=== PATIENT | female | born 1960 | race Caucasian/White ===

== ENCOUNTER 2022-03-01 13:32 | Outpatient (CLI) | payer OTHER, SELFPAY ==
--- NOTE | ~2022-03-01 | XR_ITS ---
EXAMINATION: XR chest 2V Exam Date/Time: 03/01/2022 13:55 CDT HISTORY: reoccurring cough, bronchitis x 3wks ago Comparison: 12/09/2018. RESULT: Lines, tubes, and devices: None. Lungs and pleura: Increased linear bibasilar opacities, with volume loss, greater in the right lower lung. Cardiomediastinal silhouette: Stable cardiomediastinal silhouette. Other: No acute osseous or upper abdominal finding. IMPRESSION: Atelectasis/consolidation in the right middle lobe. Bibasilar atelectasis. Reviewed, dictated and finalized at location K.
== END 2022-03-01 13:33 | disposition home or self-care (01) ==
LOC: CHSIMG 13:44
PROVIDERS: PCP Internal Medicine; Visit Provider Internal Medicine
DX: R05.9 Cough, unspecified (principal)
CPT/HCPCS: 71046

== ENCOUNTER 2022-03-08 10:06 | Outpatient (CLI) | payer OTHER, SELFPAY ==
--- NOTE | ~2022-03-08 | XR_ITS ---
XR chest 2V 03/08/2022 10:27 Indication: Acute upper respiratory infection Procedure: 2 view chest Comparison: 12/09/2018 and 60 03/01/2022 Findings: There is bibasilar airspace consolidation unchanged. Heart size normal. No significant effu clayton or pneumothorax. Impression: 1: Bibasilar consolidation which may represent atelectasis, scarring and/or pneumonia. Reviewed, dictated and finalized at location A. Impression: 1: Bibasilar consolidation which may represent atelectasis, scarring and/or pne umonia.
== END 2022-03-08 10:07 | disposition home or self-care (01) ==
LOC: CHSIMG 10:09
PROVIDERS: PCP Internal Medicine; Visit Provider Internal Medicine
DX: J06.9 Acute upper respiratory infection, unspecified (principal)
CPT/HCPCS: 71046

== ENCOUNTER 2022-03-21 10:05 | Outpatient (CLI) | payer OTHER, SELFPAY ==
--- NOTE | ~2022-03-21 | XR_ITS ---
XR chest 2V DATE: 03/21/2022 10:20 INDICATION: Persistent cough TECHNIQUE: 2 views COMPARISON: 03/08/2022 2 view chest 12/09 2018 2 view chest FINDINGS: Bibasilar infiltrate and/atelectasis persists without significant change since 03/08/2022. Normal heart size. No pulmonary vascular congestion or pleural effusion or pneumothorax. Aortic calci fication and mild tortuosity. Osteopenia. IMPRESSION: Persistent bibasilar infiltrates and/atelectasis Reviewed, dictated and finalized at location A.
== END 2022-03-21 10:06 | disposition home or self-care (01) ==
LOC: CHSIMG 10:06
PROVIDERS: PCP Internal Medicine; Visit Provider Internal Medicine
DX: Z09 Encounter for follow-up examination after completed treatment for conditions other than malignant neoplasm (principal); J18.9 Pneumonia, unspecified organism
CPT/HCPCS: 71046

== ENCOUNTER 2022-03-28 11:28 | Outpatient (CLI) | payer OTHER, SELFPAY ==
--- NOTE | ~2022-03-28 | CT_ITS ---
EXAMINATION:CT diagnostic chest wo con DATE: 03/28/2022 12:07 INDICATION: Pneumonia. Cough. TECHNIQUE: Computed tomography (CT) of the chest was performed without intravenous contrast. Automate d exposure control and iterative reconstruction technique were employed. The dose-length product (DLP ) was 298.82 mGy-cm. COMPARISON: Chest 2 views 03/21/2022, 12/09/2018, 03/01/2022 FINDINGS: The lung volumes are small. There is widespread peripheral septal thickening in the lungs a ssociated with groundglass opacities and small airspace opacities. There is mild bronchiectasis in th e inferior lungs. No honeycombing. The heart size is normal. No pericardial effusion. There is mild m ediastinal lymphadenopathy, likely reactive. There is mild thoracic spondylosis. IMPRESSION: 1. Diffuse lung disease, stable from 03/01/22 and worsened from 12/09/18, likely chronic interstitial darshana ng disease in a pattern of nonspecific interstitial pneumonia (NSIP). 2. Mild mediastinal lymphadenopathy, likely reactive. Reviewed, dictated and finalized at location A. IMPRESSION: 1. Diffuse lung disease, stable from 03/01/22 and worsened from 12/09/18, likely c hronic interstitial lung disease in a pattern of nonspecific interstitial pneum onia (NSIP). 2. Mild mediastinal lymphadenopathy, likely reactive.
== END 2022-03-28 11:29 | disposition home or self-care (01) ==
LOC: CHSIMG 11:33
PROVIDERS: PCP Internal Medicine; Visit Provider Internal Medicine
DX: J18.9 Pneumonia, unspecified organism (principal)
CPT/HCPCS: 71250

== ENCOUNTER 2022-04-17 10:18 | Outpatient (CLI) | payer OTHER, SELFPAY | END 2022-04-17 10:19 | disposition home or self-care (01) | LOC: CHSCARD 10:19 | PROVIDERS: PCP Internal Medicine; Visit Provider Internal Medicine | DX: R05.3 Chronic cough (principal) | CPT/HCPCS: 94060; 94726; 94729 ==

== ENCOUNTER 2022-05-16 14:44 | Outpatient (CLI) | payer OTHER, SELFPAY ==
[2022-05-16 15:10] LABS: Basophils Absolute Auto 0.08 K/mm3 (0.00-0.10); Basophils Percent Auto 1.2 % (0.0-1.0); Eosinophils Absolute Auto 0.31 K/mm3 (0.02-0.50); Eosinophils Percent Auto 4.7 % (1.0-6.0); Hematocrit 39.5 % (35.0-49.0); Hemoglobin 12.6 g/dL (12.0-15.0); Immature Granulocyte Absolute 0.01 K/mm3 (0.00-0.00); Immature Granulocyte Percent A 0.2 % (0.0-0.0); Lymphocytes Absolute Auto 2.27 K/mm3 (1.10-4.50); Lymphocytes Percent Auto 34.1 % (18.0-42.0); Mean Corpuscular HGB Conc 31.9 g/dL (32.0-36.0); Mean Corpuscular Hemoglobin 31.6 pg (27.0-31.0); Mean Platelet Volume 11.8 fl (9.2-11.8); Monocytes Absolute Auto 0.55 K/mm3 (0.10-0.90); Monocytes Percent Auto 8.3 % (2.0-11.0); Neutrophils Absolute Auto 3.4 K/mm3 (1.7-7.2); Neutrophils Percent Auto 51.5 % (50.0-70.0); Platelet Count Result 241 K/mm3 (150-420); Red Blood Count 3.99 M/mm3 (4.20-5.40); Red Cell Distribution Width 13.7 % (11.6-14.4); White Blood Count 6.7 K/mm3 (4.8-10.8)
[2022-05-16 15:19] LABS: Add Urine Microscopic? YES; Appearance Urine Clear (Clear); Bilirubin Urine Negative (Negative); Blood Urine Negative (Negative); Color Urine Yellow (Yellow); Glucose Urine UA Negative (Negative); Ketones Urine Trace (Negative); Leukocyte Esterase Ur Negative LEU/UL (Negative); Nitrate Urine Negative (Negative); Protein Urine Negative (Negative); Specific Grav Ur 1.025 (1.010-1.020); Urobilinogen Urine 0.2 mg/dL (0.2-1.0)
[2022-05-16 15:26] LABS: Alanine Aminotransferase 34 U/L (14-59); Albumin Level 3.7 g/dL (3.4-5.0); Alkaline Phosphatase 66 U/L (46-116); Anion Gap 10 mmol/L (8-16); Aspartate Amino Transferase 25 U/L (15-37); Bilirubin,Total 0.4 mg/dL (0.00-1.00); Blood Urea Nitrogen 15 mg/dL (7-18); Calcium 8.8 mg/dL (8.5-10.1); Carbon Dioxide 26 mmol/L (21-32); Chloride 107 mmol/L (98-108); Cholesterol 205 mg/dL (0-200); Creatine Kinase 94 U/L (26-192); Estimated Glomerular Filt Rate 56; Glucose 100 mg/dL (70-99); HDL Direct 61 mg/dL (40-60); LDL Cholesterol Calculated 106 mg/dL (<130); Osmolality Calculated 296 mOsm/kg (285-295); Potassium 4.3 mmol/L (3.5-5.1); Sodium 143 mmol/L (136-145); Total Protein 6.7 g/dL (6.4-8.2); Triglycerides 191 mg/dL (0-150)
[2022-05-16 15:37] LABS: Bacteria Urine Trace /hpf; RBC Urine None seen /hpf (0-2); Squamous Epithelial Cell Urine Few /hpf (Few); WBC Urine None seen /hpf (0-3)
== END 2022-05-16 14:45 | disposition home or self-care (01) ==
LOC: CHSLAB 14:46
PROVIDERS: PCP Internal Medicine; Visit Provider Internal Medicine
DX: Z00.00 Encounter for general adult medical examination without abnormal findings (principal)
CPT/HCPCS: 36415; 80053; 80061; 81001; 82550; 85025

== ENCOUNTER 2022-08-28 15:26 | Outpatient (CLI) | payer OTHER, SELFPAY ==
--- NOTE | ~2022-08-28 | XR_ITS ---
EXAMINATION: XR chest 2V Exam Date/Time: 08/28/2022 16:00 ETHOLOGIST HISTORY: chronic cough X2 DAYS Comparison: 03/21/2022, CT chest 03/28/2022. RESULT: Lines, tubes, and devices: None. Lungs and pleura: Increasing subsegmental consolidation in the right lung base overlying a backgroun d of moderate chronic interstitial change. Cardiomediastinal silhouette: Stable. Other: No acute osseous or upper abdominal finding. IMPRESSION: Atelectasis/consolidation in the right lung base. Chronic interstitial lung disease. Reviewed, dictated and finalized at location K. LOGIST IMPRESSION: Atelectasis/consolidation in the right lung base. Chronic interstitial lung dis ease.
[2022-08-28 15:48] LABS: Basophils Absolute Auto 0.06 K/mm3 (0.00-0.10); Basophils Percent Auto 0.7 % (0.0-1.0); Eosinophils Absolute Auto 0.33 K/mm3 (0.02-0.50); Eosinophils Percent Auto 3.9 % (1.0-6.0); Hematocrit 40.1 % (35.0-49.0); Hemoglobin 13.3 g/dL (12.0-15.0); Immature Granulocyte Absolute 0.02 K/mm3 (0.00-0.00); Immature Granulocyte Percent A 0.2 % (0.0-0.0); Lymphocytes Percent Auto 10.7 % (18.0-42.0); Mean Corpuscular HGB Conc 33.2 g/dL (32.0-36.0); Mean Corpuscular Volume 96.4 fL (78.0-102.0); Monocytes Absolute Auto 0.64 K/mm3 (0.10-0.90); Monocytes Percent Auto 7.6 % (2.0-11.0); Neutrophils Absolute Auto 6.5 K/mm3 (1.7-7.2); Neutrophils Percent Auto 76.9 % (50.0-70.0); Platelet Count Result 217 K/mm3 (150-420); Red Blood Count 4.16 M/mm3 (4.20-5.40); Red Cell Distribution Width 13.5 % (11.6-14.4); White Blood Count 8.4 K/mm3 (4.8-10.8)
[2022-08-28 16:37] LABS: CRP 0.6 mg/dL (0.0-0.9)
[2022-08-28 16:52] LABS: Erythrocyte Sedimentation Rate 12 mm/hr (0-20)
== END 2022-08-28 15:27 | disposition home or self-care (01) ==
LOC: CHSLAB 15:28
PROVIDERS: PCP Internal Medicine; Visit Provider Internal Medicine
DX: R05.3 Chronic cough (principal)
CPT/HCPCS: 36415; 71046; 85025; 85652; 86140

== ENCOUNTER 2022-09-01 06:36 | Emergency (ER) | payer OTHER, SELFPAY ==
--- NOTE | ~2022-09-01 | XR_ITS ---
XR ribs RT 2V w CXR 2V DATE: 09/01/2022 07:25 INDICATION: Right lower rib pain TECHNIQUE: PA and lateral chest. 3 views of the right ribs. COMPARISON: None FINDINGS: There are prominent bibasilar infiltrates and/or atelectasis, greater on the right. Minimal patchy infiltrate is noted throughout the remainder of the right lung. Normal heart size. No pleural effusion or pulmonary vascular congestion or pneumothorax. Diffuse osteopenia. Mild degenerative change of the thoracic and lumbar spine. No right rib fracture or bone destruction is detected. IMPRESSION: Prominent bibasilar infiltrate and/or atelectasis, greater on the right; mild diffuse rig ht lung infiltrate Reviewed, dictated and finalized at location A. ARCH ANTHROPOLOGIST IMPRESSION: Prominent bibasilar infiltrate and/or atelectasis, greater on the r ight; mild diffuse right lung infiltrate
[2022-09-01 06:45] VITALS: BP 125/77; PULSE 88; RESP 20; TEMP 36.4; O2SAT 95
--- NOTE | 2022-09-01 06:58 | ED.GENADULT ---
HPI - General Adult General Chief complaint: Upper Respiratory Infection Stated complaint: pneumonia/pain bottom R Lung/ Time Seen by Provider: 09/01/22 07:14 History of Present Illness HPI narrative: Ruma is a 61F with a PMH of rheumatoid arthritis, osteoarthritis, and psoriatic arthritis as well as headaches and HTN that presented to the ED with worsening symptoms after being diagnosed with pneumonia a few days ago. She was started on levaquin and benzonatate but she continues to get worse. She is having worsening pain in her right lower ribs, brain fog, and aches in her tendons and joints. To make things worse she is very worked up and upset because her mother yesterday. She denies any pain in her anterior chest. Related Data Home Medications Medication Instructions Recorded Confirmed atorvastatin 10 mg tablet 10 mg PO DAILY 09/01/22 09/01/22 benzonatate 100 mg capsule 200 mg PO PRN PRN Cough 09/01/22 09/01/22 duloxetine 60 mg capsule,delayed 60 mg PO DAILY 09/01/22 09/01/22 release fluticasone propionate 100 1 inh inhalation BID 09/01/22 09/01/22 mcg/actuation blister powder for inhalation (Flovent Diskus) levofloxacin 500 mg tablet 500 mg PO BID 09/01/22 09/01/22 lisinopril 10 mg tablet 10 mg PO DAILY 09/01/22 09/01/22 propranolol 80 mg capsule,24 80 mg PO DAILY 09/01/22 09/01/22 hr,extended release sumatriptan succinate 4 mg/0.5 mL 4 mg subcut PRN PRN Headache 09/01/22 09/01/22 subcutaneous cartridge (refill) topiramate 100 mg tablet 100 mg PO DAILY 09/01/22 09/01/22 Allergies Allergy/AdvReac Type Severity Reaction Status Date / Time No Known Allergies Allergy Verified 09/01/22 06:54 Review of Systems Review of Systems: All systems reviewed & are unremarkable except as noted in HPI and below Exam Const: General: healthy appearing and no acute distress Nutritional Appearance: well nourished Orientation/consciousness: patient oriented x3 HENMT: Head: normal to inspection Ears: external ears normal Eyes: Conjunctivae: conjunctivae normal Neck: Neck: normal visual inspection Chest: Chest palpation & inspection: normal inspection of the chest Resp: Effort & Inspection: labored Auscultation: crackles on the right at the base Other: Cough present throughout most of exam Cardio: Rate: regular rate Rhythm: regular rhythm GI: Inspection: non-distended GI Palp: Yes Soft to palpation, No Tenderness to palpation present (GI) and No Guarding due to palpation present (GI) Skin: General skin exam: normal color Neuro: General: patient oriented x3 and moves all extremities Cranial nerves: Yes Nystagmus not present Extrem: General: normal to inspection Psych: Mental Status: mental status grossly normal Course Course Emergency Course: Ordered radiographs. Given alprazolam. Care transferred to Dr. Cui at 0700. Vital Signs Vital signs: Vital Signs Temperature 97.5 F L 09/01/22 06:45 Pulse Rate 88 09/01/22 06:45 Respiratory Rate 20 09/01/22 06:45 Blood Pressure 125/77 09/01/22 06:45 Pulse Oximetry 95 09/01/22 06:45 Oxygen Delivery Room Air 09/01/22 06:45 Temperature 99.0 F 09/01/22 07:57 Pulse Rate 87 09/01/22 07:57 Respiratory Rate 20 09/01/22 07:57 Blood Pressure 116/73 09/01/22 07:57 Pulse Oximetry 97 09/01/22 07:57 Oxygen Delivery Room Air 09/01/22 07:57 Medical Decision Making Vital Signs Vital Signs: Vital Signs Temperature 97.5 F L 09/01/22 06:45 Pulse Rate 88 09/01/22 06:45 Respiratory Rate 20 09/01/22 06:45 Blood Pressure 125/77 09/01/22 06:45 Pulse Oximetry 95 09/01/22 06:45 Oxygen Delivery Room Air 09/01/22 06:45 Temperature 99.0 F 09/01/22 07:57 Pulse Rate 87 09/01/22 07:57 Respiratory Rate 20 09/01/22 07:57 Blood Pressure 116/73 09/01/22 07:57 Pulse Oximetry 97 09/01/22 07:57 Oxygen Delivery Room Air 09/01/22 07:57 Discharge Plan Discharge Clini
--- NOTE | 2022-09-01 07:08 | PC.NURSE ---
Report given to [place] DALLAS.
--- NOTE | 2022-09-01 07:15 | ED.GENADULT ---
HPI - General Adult General Chief complaint: Upper Respiratory Infection Stated complaint: pneumonia/pain bottom R Lung/ Time Seen by Provider: 09/01/22 07:14 History of Present Illness HPI narrative: patient is a 61-year-old white female diagnosed with pneumonia 4 days ago placed on Levaquin which she thinks is making her symptoms worse. She complains of persistent cough lightheadedness muscle aches joint aches and brain fog. Patient was seen by Dr. Kenroy Crain who ordered a chest x-ray repeat with the rib series Ativan. Patient states her mother yesterday of Alzheimer's disease. doctor's note was reviewed and discussed. Related Data Home Medications Medication Instructions Recorded Confirmed atorvastatin 10 mg tablet 10 mg PO DAILY 09/01/22 09/01/22 benzonatate 100 mg capsule 200 mg PO PRN PRN Cough 09/01/22 09/01/22 duloxetine 60 mg capsule,delayed 60 mg PO DAILY 09/01/22 09/01/22 release fluticasone propionate 100 1 inh inhalation BID 09/01/22 09/01/22 mcg/actuation blister powder for inhalation (Flovent Diskus) levofloxacin 500 mg tablet 500 mg PO BID 09/01/22 09/01/22 lisinopril 10 mg tablet 10 mg PO DAILY 09/01/22 09/01/22 propranolol 80 mg capsule,24 80 mg PO DAILY 09/01/22 09/01/22 hr,extended release sumatriptan succinate 4 mg/0.5 mL 4 mg subcut PRN PRN Headache 09/01/22 09/01/22 subcutaneous cartridge (refill) topiramate 100 mg tablet 100 mg PO DAILY 09/01/22 09/01/22 Allergies Allergy/AdvReac Type Severity Reaction Status Date / Time No Known Allergies Allergy Verified 09/01/22 06:54 Exam Narrative: Patient appears in no apparent distress. Lungs show crepitation at the bases she had 1 small wheeze which disappeared At the right base. Heart was regular rate rhythm without murmurs gallops or rubs. Vital signs are normal. Course Course Emergency Course: Check stat x-ray with right rib series was negative for fracture. Her x-ray looks a little better that will was on 08/28/2022. Discharge instructions were discussed all questions were asked and answered Vital Signs Vital signs: Vital Signs Temperature 36.4 C L 09/01/22 06:45 Pulse Rate 88 09/01/22 06:45 Respiratory Rate 20 09/01/22 06:45 Blood Pressure 125/77 09/01/22 06:45 Pulse Oximetry 95 09/01/22 06:45 Oxygen Delivery Room Air 09/01/22 06:45 Temperature 36.4 C L 09/01/22 06:45 Pulse Rate 88 09/01/22 06:45 Respiratory Rate 20 09/01/22 06:45 Blood Pressure 125/77 09/01/22 06:45 Pulse Oximetry 95 09/01/22 06:45 Oxygen Delivery Room Air 09/01/22 06:45 Medical Decision Making Vital Signs Vital Signs: Vital Signs Temperature 36.4 C L 09/01/22 06:45 Pulse Rate 88 09/01/22 06:45 Respiratory Rate 20 09/01/22 06:45 Blood Pressure 125/77 09/01/22 06:45 Pulse Oximetry 95 09/01/22 06:45 Oxygen Delivery Room Air 09/01/22 06:45 Temperature 36.4 C L 09/01/22 06:45 Pulse Rate 88 09/01/22 06:45 Respiratory Rate 20 09/01/22 06:45 Blood Pressure 125/77 09/01/22 06:45 Pulse Oximetry 95 09/01/22 06:45 Oxygen Delivery Room Air 09/01/22 06:45 Discharge Plan Discharge Clinical Impression: Pneumonia Patient Disposition: Home, Self-Care Condition: Stable Instructions: Antibiotic Form, Bacterial Pneumonia (ED) Additional Instructions: Tylenol 1000 mg 4 times a day and or ibuprofen 200 mg tablets: 2 tabs 3 times a day as needed for pain. Low heating pad and or ice packs for 20 minutes at a time as needed for pain. Return if you get worse or develops any new symptoms. Follow-up with private medical doctor. Prescriptions: New amoxicillin-pot clavulanate [Augmentin] 500-125 mg tablet 1 tablet PO TID 10 Days Qty: 30 0RF azithromycin [Zithromax Z-Efrain] 250 mg tablet See Rx Instructions .ROUTE .COMPLEX Qty: 6 0RF Rx Instructions: For 250 mg dose pack: take 500 mg today (day 1), then 250 mg for 4 days (days 2-5)
[2022-09-01] MEDS: ALPRAZolam (*CRX) 0.5 MG TABLET PO (07:43)
[2022-09-01 07:57] VITALS: BP 116/73; PULSE 87; RESP 20; TEMP 37.2; O2SAT 97
== END 2022-09-01 08:02 | disposition home or self-care (01) ==
LOC: CHSED 07:45
PROVIDERS: Emergency Provider Emergency Medicine; PCP Internal Medicine
DX: J18.9 Pneumonia, unspecified organism (principal)
CPT/HCPCS: 71046; 71100; 99283; A9270

== ENCOUNTER 2023-03-30 09:21 | Outpatient (CLI) | payer OTHER, SELFPAY ==
[2023-03-30 09:40] LABS: Basophils Absolute Auto 0.06 K/mm3 (0.00-0.10); Basophils Percent Auto 1.1 % (0.0-1.0); Eosinophils Absolute Auto 0.31 K/mm3 (0.02-0.50); Eosinophils Percent Auto 5.6 % (1.0-6.0); Hematocrit 38.7 % (35.0-49.0); Hemoglobin 12.8 g/dL (12.0-15.0); Immature Granulocyte Absolute 0.02 K/mm3 (0.00-0.00); Immature Granulocyte Percent A 0.4 % (0.0-0.0); Lymphocytes Absolute Auto 2.29 K/mm3 (1.10-4.50); Lymphocytes Percent Auto 41.5 % (18.0-42.0); Mean Corpuscular HGB Conc 33.1 g/dL (32.0-36.0); Mean Corpuscular Hemoglobin 32.5 pg (27.0-31.0); Mean Corpuscular Volume 98.2 fL (78.0-102.0); Mean Platelet Volume 11.7 fl (9.2-11.8); Monocytes Absolute Auto 0.45 K/mm3 (0.10-0.90); Monocytes Percent Auto 8.2 % (2.0-11.0); Neutrophils Absolute Auto 2.4 K/mm3 (1.7-7.2); Neutrophils Percent Auto 43.2 % (50.0-70.0); Platelet Count Result 223 K/mm3 (150-420); Red Blood Count 3.94 M/mm3 (4.20-5.40); Red Cell Distribution Width 13.5 % (11.6-14.4); White Blood Count 5.5 K/mm3 (4.8-10.8)
[2023-03-30 09:58] LABS: Hemoglobin A1C 5.6 % (<5.7)
[2023-03-30 10:10] LABS: Appearance Urine Clear (Clear); Bilirubin Urine Negative (Negative); Blood Urine Trace-Intact (Negative); Color Urine Light Yellow (Yellow); Glucose Urine UA Negative (Negative); Ketones Urine Negative (Negative); Leukocyte Esterase Ur 2+ (Negative); Nitrate Urine Negative (Negative); Protein Urine Negative (Negative); Specific Grav Ur <= 1.005 (1.010-1.020); Urobilinogen Urine 0.2 mg/dL (0.2-1.0); pH Urine 6.5 (5.0-8.0)
[2023-03-30 10:15] LABS: Add Urine Microscopic? YES; Bacteria Urine Trace /hpf; RBC Urine 0-2 /hpf (0-2); Squamous Epithelial Cell Urine Few /hpf (Few)
[2023-03-30 10:46] LABS: Alanine Aminotransferase 21 U/L (14-59); Albumin Level 3.6 g/dL (3.4-5.0); Alkaline Phosphatase 65 U/L (46-116); Anion Gap 9 mmol/L (8-16); Aspartate Amino Transferase 17 U/L (15-37); Bilirubin,Total 0.4 mg/dL (0.00-1.00); Blood Urea Nitrogen 16 mg/dL (7-18); Calcium 8.6 mg/dL (8.5-10.1); Carbon Dioxide 28 mmol/L (21-32); Chloride 107 mmol/L (98-108); Cholesterol 294 mg/dL (0-200); Estimated Glomerular Filt Rate > 60; Glucose 107 mg/dL (70-99); HDL Direct 51 mg/dL (40-60); LDL Cholesterol Calculated 210 mg/dL (<130); Osmolality Calculated 299 mOsm/kg (285-295); Potassium 4.3 mmol/L (3.5-5.1); Sodium 144 mmol/L (136-145); Total Protein 6.8 g/dL (6.4-8.2); Triglycerides 163 mg/dL (0-150)
== END 2023-03-30 09:22 | disposition home or self-care (01) ==
PROVIDERS: PCP Internal Medicine; Visit Provider Internal Medicine
DX: I10 Essential (primary) hypertension (principal); R73.01 Impaired fasting glucose; E78.2 Mixed hyperlipidemia; M05.70 Rheumatoid arthritis with rheumatoid factor of unspecified site without organ or systems involvement
CPT/HCPCS: 36415; 80053; 80061; 81001; 83036; 85025

== ENCOUNTER 2023-07-12 12:53 | Outpatient (CLI) | payer BC, SELFPAY ==
--- NOTE | ~2023-07-12 | CT_ITS ---
EXAMINATION:CT diagnostic chest wo con DATE: 07/12/2023 13:23 INDICATION: Cough. Interstitial lung disease. TECHNIQUE: Computed tomography (CT) of the chest was performed without intravenous contrast. Automate d exposure control and iterative reconstruction technique were employed. The dose-length product (DLP ) was 251.82 mGy-cm. COMPARISON: Chest CT 03/28/2022 FINDINGS: The lung volumes are small. There are widespread peripheral airspace and groundglass opacit ies and septal thickening with a lower lung predominance. No honeycombing. No pleural effusion. The h eart size is normal. No pericardial effusion. There is mild mediastinal lymphadenopathy, likely react lisa. There are 4 mm and 5 mm stones in right kidney. There is mild thoracic spondylosis. IMPRESSION: 1. Diffuse lung disease, stable from 03/28/2022, consistent with chronic interstitial lung disease in a pattern of nonspecific interstitial pneumonia (NSIP). 2. Stable mild mediastinal lymphadenopathy, likely reactive. Reviewed, dictated and finalized at location E. IMPRESSION: 1. Diffuse lung disease, stable from 03/28/2022, consistent with chronic interst itial lung disease in a pattern of nonspecific interstitial pneumonia (NSIP). 2. Stable mild mediastinal lymphadenopathy, likely reactive.
== END 2023-07-12 12:54 | disposition home or self-care (01) ==
LOC: CHSIMG 12:55
PROVIDERS: PCP Internal Medicine
DX: J84.9 Interstitial pulmonary disease, unspecified (principal); R59.0 Localized enlarged lymph nodes
CPT/HCPCS: 71250

== ENCOUNTER 2023-07-30 14:50 | Outpatient (CLI) | payer BC, SELFPAY ==
--- NOTE | 2023-07-30 14:54 | ECHO_ITS ---
Patient Info Name: Ruma Montaño Age: 62 years : 1960 Gender: Female Ht: 69 in Wt: 217 lbs BSA: 2.22 m2 HR: 73 bpm BP: 159 / 102 mmHg Heart Rhythm: Sinus Rhythm Technical Quality: Good Exam Date: 07/30/2023 2:53 PM Exam Location: [facility] Patient Status: Outpatient Admit Date: 07/30/2023 Staff Ordering Physician: Jesus Vaughn M.D., MD Tuber Machine Cutter: Forrest Merchant RDCS Attending Provider: Jesus Vaughn M.D., MD Referring Physician: Roderick LIZ; Exam Type: CA echo doppler color flow Study Info Indications - sob Complete two-dimensional, color flow and Doppler transthoracic echocardiogram is performed. Summary 1. Complete two-dimensional, color flow and Doppler transthoracic echocardiogram is performed. 2. Left ventricular chamber dimension is normal. 3. Left ventricular systolic function is normal, estimated at 60-65%. 4. The left ventricular diastolic function is grade I diastolic dysfunction. 5. No pulmonary hypertension, estimated pulmonary arterial systolic pressure is 23 mmHg. Left Ventricle Tissue doppler E/e' is not performed. Left ventricular chamber dimension is normal. Left ventricular systolic function is normal, estimated at 60-65%. The left ventricular diastolic function is grade I diastolic dysfunction. Right Ventricle Right ventricular chamber dimension is normal. Right ventricular systolic function is normal. Left Atria Left atrial chamber dimension is normal. Right Atria Right atrial chamber dimension is normal. Aortic Valve The aortic valve is trileaflet. There is no aortic valve stenosis. There is no aortic valve regurgitation. Pulmonic Valve There is no pulmonic regurgitation. Mitral Valve There is no mitral valve stenosis. There is no mitral valve regurgitation. Tricuspid Valve There is no tricuspid valve regurgitation. No pulmonary hypertension, estimated pulmonary arterial systolic pressure is 23 mmHg. Pericardium/Pleural There is no pericardial effusion. Inferior Vena Cava Normal inferior vena cava with >50% collapse upon inspiration consistent with normal right atrial pressure, 5 mmHg. Aorta The aortic root size at the sinus of Valsalva is normal. Left Ventricular Outflow Tract Name Value Normal LVOT 2D LVOT Diameter 1.8 cm LVOT Doppler LVOT Peak Velocity 209 cm/s LVOT Peak Gradient 18 mmHg LVOT Mean Gradient 6 mmHg LVOT VTI 40 cm LVOT VTI/AV VTI Ratio 1.1 LVOT Stroke Volume 106 ml Pulmonic Valve Name Value Normal RVOT Doppler RVOT Peak Gradient 2 mmHg PV Doppler PV Peak Velocity 84 cm/s PV Peak Gradient 3 mmHg Mitral Valve
== END 2023-07-30 14:51 | disposition home or self-care (01) ==
LOC: CHSIMG 14:51
PROVIDERS: PCP Internal Medicine
DX: R06.02 Shortness of breath (principal)
CPT/HCPCS: 93306

== ENCOUNTER 2023-11-14 15:58 | Outpatient (CLI) | payer BC, SELFPAY ==
--- NOTE | ~2023-11-14 | XR_ITS ---
EXAMINATION: XR chest 2V DATE: 11/14/2023 16:22 INDICATION: Cough. TECHNIQUE: Frontal and lateral views of the chest were obtained. COMPARISON: Chest 2 views 09/01/2022, 03/21/2022, chest CT 07/12/2023 FINDINGS: The lung volumes are small. There are interstitial opacities and patchy airspace opacities in all lung zones bilaterally. No pleural effusion or pneumothorax. The heart size is normal. IMPRESSION: 1. Diffuse lung disease, mildly worsened from 09/01/2022, consistent with chronic interstitial lung d isease with superimposed findings of acute exacerbation versus pneumonia versus mild pulmonary edema. Reviewed, dictated and finalized at location E. ER ANALYST IMPRESSION: 1. Diffuse lung disease, mildly worsened from 09/01/2022, consistent with chron ic interstitial lung disease with superimposed findings of acute exacerbation v ersus pneumonia versus mild pulmonary edema.
[2023-11-14 16:20] LABS: Basophils Percent Auto 0.7 % (0.0-1.0); Eosinophils Absolute Auto 0.73 K/mm3 (0.02-0.50); Eosinophils Percent Auto 5.2 % (1.0-6.0); Hematocrit 39.2 % (35.0-49.0); Hemoglobin 12.6 g/dL (12.0-15.0); Immature Granulocyte Absolute 0.04 K/mm3 (0.00-0.00); Immature Granulocyte Percent A 0.3 % (0.0-0.0); Lymphocytes Absolute Auto 1.96 K/mm3 (1.10-4.50); Mean Corpuscular HGB Conc 32.1 g/dL (32.0-36.0); Mean Corpuscular Hemoglobin 30.4 pg (27.0-31.0); Mean Corpuscular Volume 94.5 fL (78.0-102.0); Mean Platelet Volume 11.7 fl (9.2-11.8); Monocytes Absolute Auto 1.22 K/mm3 (0.10-0.90); Monocytes Percent Auto 8.7 % (2.0-11.0); Neutrophils Absolute Auto 9.9 K/mm3 (1.7-7.2); Neutrophils Percent Auto 71.1 % (50.0-70.0); Platelet Count Result 245 K/mm3 (150-420); Red Blood Count 4.15 M/mm3 (4.20-5.40)
[2023-11-14 16:29] LABS: Alanine Aminotransferase 24 U/L (14-59); Albumin Level 3.2 g/dL (3.4-5.0); Alkaline Phosphatase 64 U/L (46-116); Anion Gap 9 mmol/L (8-16); Aspartate Amino Transferase 33 U/L (15-37); Bilirubin,Total 0.8 mg/dL (0.00-1.00); Blood Urea Nitrogen 11 mg/dL (7-18); Calcium 8.5 mg/dL (8.5-10.1); Carbon Dioxide 29 mmol/L (21-32); Chloride 102 mmol/L (98-108); Estimated Glomerular Filt Rate 57; Glucose 107 mg/dL (70-99); Osmolality Calculated 289 mOsm/kg (285-295); Potassium 3.7 mmol/L (3.5-5.1); Sodium 140 mmol/L (136-145)
[2023-11-14 16:51] LABS: RSV RNA, RT-PCR Negative (Negative)
[2023-11-14 17:03] LABS: Influenza A QL RT-PCR Negative (Negative); Influenza B QL RT-PCR Negative (Negative); SARS-CoV-2 RNA PCR Positive (Negative)
== END 2023-11-14 15:59 | disposition home or self-care (01) ==
LOC: CHSLAB 16:00
PROVIDERS: PCP Internal Medicine; Visit Provider Internal Medicine
DX: R05.9 Cough, unspecified (principal); R50.9 Fever, unspecified; J98.4 Other disorders of lung; Z20.822 Contact with and (suspected) exposure to COVID-19
CPT/HCPCS: 36415; 71046; 80053; 85025; 87637

== ENCOUNTER 2023-12-27 09:31 | Outpatient (CLI) | payer BC, SELFPAY ==
[2023-12-27 10:24] LABS: Basophils Absolute Auto 0.11 K/mm3 (0.00-0.10); Eosinophils Absolute Auto 0.72 K/mm3 (0.02-0.50); Eosinophils Percent Auto 6.2 % (1.0-6.0); Hematocrit 40.9 % (35.0-49.0); Hemoglobin 13.1 g/dL (12.0-15.0); Immature Granulocyte Absolute 0.05 K/mm3 (0.00-0.00); Immature Granulocyte Percent A 0.4 % (0.0-0.0); Lymphocytes Absolute Auto 2.83 K/mm3 (1.10-4.50); Lymphocytes Percent Auto 24.5 % (18.0-42.0); Mean Corpuscular Hemoglobin 30.7 pg (27.0-31.0); Mean Corpuscular Volume 95.8 fL (78.0-102.0); Mean Platelet Volume 10.5 fl (9.2-11.8); Monocytes Percent Auto 7.8 % (2.0-11.0); Neutrophils Absolute Auto 6.96 K/mm3 (1.70-7.20); Neutrophils Percent Auto 60.1 % (50.0-70.0); Platelet Count Result 249 K/mm3 (150-420); Red Blood Count 4.27 M/mm3 (4.20-5.40); Red Cell Distribution Width 15.4 % (11.6-14.4); White Blood Count 11.6 K/mm3 (4.8-10.8)
[2023-12-27 10:39] LABS: Appearance Urine Clear (Clear); Bilirubin Urine Negative (Negative); Blood Urine Negative (Negative); Color Urine Yellow (Yellow); Glucose Urine UA Negative (Negative); Ketones Urine Negative (Negative); Leukocyte Esterase Ur Negative LEU/UL (Negative); Nitrate Urine Negative (Negative); Protein Urine Negative (Negative); Urobilinogen Urine 0.2 mg/dL (0.2-1.0)
[2023-12-27 10:44] LABS: Hemoglobin A1C 5.8 % (<5.7)
[2023-12-27 10:54] LABS: Add Urine Microscopic? NO
[2023-12-27 11:27] LABS: Alanine Aminotransferase 40 U/L (14-59); Albumin Level 3.3 g/dL (3.4-5.0); Alkaline Phosphatase 39 U/L (46-116); Anion Gap 8 mmol/L (8-16); Aspartate Amino Transferase 22 U/L (15-37); Bilirubin,Total 0.7 mg/dL (0.00-1.00); Blood Urea Nitrogen 20 mg/dL (7-18); Calcium 8.7 mg/dL (8.5-10.1); Carbon Dioxide 29 mmol/L (21-32); Chloride 107 mmol/L (98-108); Cholesterol 207 mg/dL (0-200); Creatine Kinase 226 U/L (26-192); Estimated Glomerular Filt Rate > 60; Glucose 76 mg/dL (70-99); HDL Direct 67 mg/dL (40-60); LDL Cholesterol Calculated 116 mg/dL (<130); Osmolality Calculated 299 mOsm/kg (285-295); Potassium 3.9 mmol/L (3.5-5.1); Sodium 144 mmol/L (136-145); Thyroid Stimulating Hormone 2.32 uIU/mL (0.36-3.74); Total Protein 5.9 g/dL (6.4-8.2); Triglycerides 120 mg/dL (0-150)
== END 2023-12-27 09:32 | disposition home or self-care (01) ==
LOC: CHSLAB 09:34
PROVIDERS: PCP Internal Medicine; Visit Provider Internal Medicine
DX: Z00.00 Encounter for general adult medical examination without abnormal findings (principal); K73.0 Chronic persistent hepatitis, not elsewhere classified
CPT/HCPCS: 36415; 80053; 80061; 81003; 82550; 83036; 84443; 85025

== ENCOUNTER 2024-08-07 09:48 | Outpatient (CLI) | payer BC, SELFPAY ==
[2024-08-07 10:04] LABS: Basophils Absolute Auto 0.05 K/mm3 (0.00-0.10); Basophils Percent Auto 1.2 % (0.0-1.0); Eosinophils Absolute Auto 0.37 K/mm3 (0.02-0.50); Eosinophils Percent Auto 8.6 % (1.0-6.0); Hematocrit 36.7 % (35.0-49.0); Immature Granulocyte Absolute 0.01 K/mm3 (0.00-0.00); Immature Granulocyte Percent A 0.2 % (0.0-0.0); Lymphocytes Absolute Auto 1.65 K/mm3 (1.10-4.50); Lymphocytes Percent Auto 38.2 % (18.0-42.0); Mean Corpuscular HGB Conc 32.7 g/dL (32-36); Mean Corpuscular Hemoglobin 31.7 pg (27.0-31.0); Mean Corpuscular Volume 96.8 fL (78.0-102.0); Monocytes Percent Auto 9.3 % (2.0-11.0); Neutrophils Absolute Auto 1.84 K/mm3 (1.70-7.20); Neutrophils Percent Auto 42.5 % (50.0-70.0); Platelet Count Result 203 K/mm3 (150-420); Red Blood Count 3.79 M/mm3 (4.20-5.40); Red Cell Distribution Width 13.6 % (11.6-14.4); White Blood Count 4.3 K/mm3 (4.8-10.8)
[2024-08-07 10:06] LABS: Add Urine Microscopic? YES; Appearance Urine Clear (Clear); Bilirubin Urine Negative (Negative); Blood Urine Negative (Negative); Color Urine Light Yellow (Yellow); Glucose Urine UA Negative (Negative); Ketones Urine Negative (Negative); Leukocyte Esterase Ur 3+ (Negative); Nitrate Urine Negative (Negative); Protein Urine Negative (Negative); Urobilinogen Urine 0.2 mg/dL (0.2-1.0)
[2024-08-07 10:16] LABS: Bacteria Urine 1+ /hpf; RBC Urine None seen /hpf (0-2); Squamous Epithelial Cell Urine Few /hpf (Few)
[2024-08-07 10:28] LABS: Hemoglobin A1C 5.6 % (<5.7)
[2024-08-07 10:51] LABS: Alanine Aminotransferase 25 U/L (14-59); Albumin Level 3.3 g/dL (3.4-5.0); Alkaline Phosphatase 58 U/L (46-116); Anion Gap 7 mmol/L (4-12); Aspartate Amino Transferase 13 U/L (15-37); Bilirubin,Total 0.4 mg/dL (0.00-1.00); Blood Urea Nitrogen 17 mg/dL (7-18); Calcium 8.6 mg/dL (8.5-10.1); Carbon Dioxide 29 mmol/L (21-32); Chloride 110 mmol/L (98-108); Cholesterol 215 mg/dL (0-200); Estimated Glomerular Filt Rate 52; Glucose 105 mg/dL (70-99); HDL Direct 50 mg/dL (40-60); LDL Cholesterol Calculated 121 mg/dL (<130); Osmolality Calculated 303 mOsm/kg (285-295); Potassium 4.3 mmol/L (3.5-5.1); Sodium 146 mmol/L (136-145); Total Protein 6.1 g/dL (6.4-8.2); Triglycerides 218 mg/dL (0-150)
== END 2024-08-07 09:49 | disposition home or self-care (01) ==
PROVIDERS: PCP Internal Medicine; Visit Provider Internal Medicine
DX: R73.01 Impaired fasting glucose (principal); I10 Essential (primary) hypertension; E78.2 Mixed hyperlipidemia
CPT/HCPCS: 36415; 80053; 80061; 81001; 83036; 85025

== ENCOUNTER 2024-08-11 11:57 | Outpatient (CLI) | payer BC, SELFPAY ==
--- NOTE | ~2024-08-11 | XR_ITS ---
Clinical Indication: NSIP, shortness of breath PA and lateral views of the chest: Comparison: 11/14/2023 Findings: Stable chronic interstitial disease in the lungs is present. Probable relative sparing of t he left upper lobe. Cardiomediastinal silhouette is within normal limits. Bones and soft tissues are unremarkable. Impression: Stable chronic interstitial pulmonary disease. Reviewed, dictated and finalized at location . ARATION OPERATOR Impression: Stable chronic interstitial pulmonary disease.
== END 2024-08-11 11:58 | disposition home or self-care (01) ==
LOC: CHSLAB 11:59
PROVIDERS: PCP Internal Medicine; Visit Provider Family Medicine
DX: R05.2 Subacute cough (principal)
CPT/HCPCS: 71046

== ENCOUNTER 2024-08-16 01:11 | Emergency (ER) | payer BC, SELFPAY ==
--- NOTE | ~2024-08-16 | XR_ITS ---
EXAMINATION: XR abdomen obstructive series DATE: 08/16/2024 01:42 INDICATION: Constipation. TECHNIQUE: Upright and supine views of the abdomen on 4 radiographs were obtained. COMPARISON: Chest CT 07/12/2023 FINDINGS: There are no dilated loops of bowel. There is a moderate volume of stool in the colon. No f ree intraperitoneal gas. There are chronic airspace and interstitial opacities at the lung bases. IMPRESSION: 1. Nonobstructive bowel gas pattern. 2. Chronic interstitial lung disease. Reviewed, dictated and finalized at location A. STRAPPER
[2024-08-16 01:13] VITALS: BP 146/94; PULSE 89; RESP 18; TEMP 37.3; O2SAT 94
--- NOTE | 2024-08-16 01:26 | ED.GENADULT ---
HPI - General Adult General Chief complaint: Unspecified Stated complaint: constipation Time Seen by Provider: 08/16/24 01:25 Source: patient Mode of arrival: ambulatory Limitations: no limitations History of Present Illness HPI narrative: PATIENT DROVE HERSELF TO THE EMERGENCY ROOM COMPLAINING OF UNABLE TO URINATE FOR THE LAST 7 HOURS. PATIENT REPORT LAST BOWEL MOVEMENT 3 DAYS AGO. WAS SEEN BY HER ONCOLOGIST TODAY FOR REGULAR CHECKUP. HISTORY OF BREAST CANCER April, CURRENTLY ON RADIATION THERAPY AND CHEMOTHERAPY Related Data Home Medications Medication Instructions Recorded Confirmed atorvastatin 10 mg tablet 10 mg PO DAILY 09/01/22 09/01/22 benzonatate 100 mg capsule 200 mg PO PRN PRN Cough 09/01/22 09/01/22 duloxetine 60 mg capsule,delayed 60 mg PO DAILY 09/01/22 09/01/22 release fluticasone propionate 100 1 inh inhalation BID 09/01/22 09/01/22 mcg/actuation blister powder for inhalation (Flovent Diskus) levofloxacin 500 mg tablet 500 mg PO BID 09/01/22 09/01/22 lisinopril 10 mg tablet 10 mg PO DAILY 09/01/22 09/01/22 propranolol 80 mg capsule,24 80 mg PO DAILY 09/01/22 09/01/22 hr,extended release sumatriptan succinate 4 mg/0.5 mL 4 mg subcut PRN PRN Headache 09/01/22 09/01/22 subcutaneous cartridge (refill) topiramate 100 mg tablet 100 mg PO DAILY 09/01/22 09/01/22 Allergies Allergy/AdvReac Type Severity Reaction Status Date / Time levofloxacin AdvReac Dizziness Verified 08/16/24 02:34 Review of Systems Review of Systems: All systems reviewed & are unremarkable except as noted in HPI and below Exam Narrative: GENERAL APPEARANCE: WELL-DEVELOPED, WELL-NOURISHED SKIN: NORMAL COLOR HEAD: NORMOCEPHALIC, NONTRAUMATIC EYES: CLEAR CONJUNCTIVA ENT: OROPHARYNX NORMAL, EARS NORMAL, NOSE NORMAL NECK: SUPPLE, NONTENDER CHEST AND RESPIRATORY: AIRWAY PATENT, NO RESPIRATORY DISTRESS, NO ACCESSORY MUSCLE USE HEART: REGULAR RATE/RHYTHM ABDOMEN: SOFT, SUPRAPUBIC TENDERNESS, NO ORGANOMEGALY, QUIET BOWEL SOUNDS, RECTAL EXAM SHOWING FECAL IMPACTION VASCULAR: NORMAL PERIPHERAL PULSES, NORMAL CAPILLARY REFILL. MUSCULOSKELETAL: NORMAL RANGE OF MOTION, NONTENDER BACK NEUROLOGIC: ALERT AND ORIENTED ?3, ACCOUNTS PAYABLE PROFESSIONAL IS NORMAL TESTED, NO GROSS MOTOR DEFICIT Course Vital Signs Vital signs: Vital Signs Temperature 37.3 C 08/16/24 01:13 Pulse Rate 89 08/16/24 01:13 Respiratory Rate 18 08/16/24 01:13 Blood Pressure 146/94 H 08/16/24 01:13 Pulse Oximetry 94 08/16/24 01:13 Oxygen Delivery Room Air 08/16/24 01:13 Temperature 37.3 C 08/16/24 01:13 Pulse Rate 89 08/16/24 01:13 Respiratory Rate 18 08/16/24 01:13 Blood Pressure 146/94 H 08/16/24 01:13 Pulse Oximetry 94 08/16/24 01:13 Oxygen Delivery Room Air 08/16/24 01:13 Procedures Rectal Disimpaction Rectal Disimpaction #1: Rectal Disimpaction Date: 08/16/24 Rectal Disimpaction Time: 02:16 Time out performed rectal disimpaction: Yes (15) Indication: fecal impaction Sedation/Analgesia: none Technique: manual disimpaction with gloved finger Result: significant stool output Patient Tolerated Procedure: well and no complications Complications: pain Medical Decision Making MDM Narrative Medical decision making narrative: PATIENT CAME TO THE ED WITH INABILITY TO URINATE FOR THE LAST 7 HOURS. ALSO COMPLAINING OF CONSTIPATION VITAL SIGNS ARE STABLE PHYSICAL EXAMINATION CONSISTENT WITH SUPRAPUBIC TENDERNESS AND RECTAL FECAL IMPACTION BLADDER SCAN SHOWED 650 CC URINE MANUAL FECAL DISIMPACTION WAS DONE WITH GOOD AMOUNT OF STOOL OUTPUT STRAIGHT CATH YIELD 20 CC PATIENT RECEIVED 1500 CC SOAPSUDS ENEMA PRIOR TO DISCHARGE Differential Diagnosis Differential Diagnosis: CONSTIPATION, FECAL IMPACTION CAUSING URINARY TENSION Vital Signs Vital Signs: Vital Signs Temperature 37.3 C 08/16/24 01:13 Pulse Rate 89 08/16/24 01:13 Respiratory Rate 18 08/16/24 01:13 Blood Pressure 146/94 H 08/16/24 01:13 Pulse Oximetry 94 08/16/24 01:13 Oxygen Delivery Room Air 08/16/24 01:13 Temperature 37.3 C 08/16/24 01:13 Pulse Rate 89 08/16/24 01:13 Respiratory Rate 18 08/16/24 01:13 Blood Pressure 146/94 H 08/16/24 01:13 Pulse Oximetry 94 08/16/24 01:13 Oxygen Delivery Room Air 11/09/24 01:13 Lab Data Labs: Lab Results 08/16/24 Range/Units 02:35 Urine Color Light yellow (Yellow) Urine Appearance Clear (Clear) Urine pH 6.5 (5.0-8.0) Ur Specific Vest <= 1.005 L (1.010-1.020) Urine Protein Negative (Negative) Urine Glucose (UA) Negative (Negative) Urine Ketones Negative (Negative) Ur Blood (Man) Negative (Negative) Urine Nitrate Negative (Negative) Urine Bilirubin Negative (Negative) Urine Urobilinogen 0.2 (0.2-1.0) mg/dL Leukocyte Esterase Rfl Negative (Negative) MADDY/UL Imaging Data Radiologist's impression: OBSTRUCTIVE SERIES SHOWED FECAL RECTAL IMPACTION, CONSTIPATION. Critical Care Time Critical Care Time Critical Care Time: No Discharge Plan Discharge Clinical Impression: Fecal impaction in rectum, Constipation Patient Disposition: Home, Self-Care Condition: Improved Instructions: Constipation (DC), Fecal Impaction (ED) Additional Instructions: RETURN IF SYMPTOMS ARE WORSENING , CALL YOUR FAMILY PHYSICIAN FOR APPOINTMENT, TAKE TYLENOL NEEDED FOR ACHES AND PAIN, CONTINUE HOME MEDICATIONS. GET [id number] MIRALAX, ONCE EVERY 2 HOURS MAXIMUM 6 TIMES A DAY, STAY ACTIVE DRINK PLENTY OF FLUID Prescriptions: No Action atorvastatin 10 mg tablet 10 mg PO DAILY benzonatate 100 mg capsule 200 mg PO PRN PRN (Reason: Cough) Flovent Diskus 100 mcg/actuation blister with device 1 inh INHALATION BID lisinopril 10 mg tablet 10 mg PO DAILY propranolol 80 mg capsule,extended release 24hr 80 mg PO DAILY levofloxacin 500 mg tablet 500 mg PO BID topiramate 100 mg tablet 100 mg PO DAILY duloxetine 60 mg capsule,delayed release(DR/EC) 60 mg PO DAILY sumatriptan succinate 4 mg/0.5 mL cartridge 4 mg SUBCUT PRN PRN (Reason: Headache) amoxicillin-pot clavulanate [Augmentin] 500-125 mg tablet 1 tablet PO TID 10 Days Qty: 30 0RF azithromycin [Zithromax Z-Efrain] 250 mg tablet See Rx Instructions .ROUTE .COMPLEX Qty: 6 0RF Rx Instructions: For 250 mg dose pack: take 500 mg today (day 1), then 250 mg for 4 days (days 2-5) Follow-up/Referrals: Rajesh Connolly MD [Primary Care Provider] -
[2024-08-16 02:39] LABS: Add Urine Microscopic? NO; Appearance Urine Clear (Clear); Bilirubin Urine Negative (Negative); Blood Urine Negative (Negative); Color Urine Light Yellow (Yellow); Glucose Urine UA Negative (Negative); Ketones Urine Negative (Negative); Leukocyte Esterase Ur Negative LEU/UL (Negative); Nitrate Urine Negative (Negative); Protein Urine Negative (Negative); Specific Grav Ur <= 1.005 (1.010-1.020); Urobilinogen Urine 0.2 mg/dL (0.2-1.0); pH Urine 6.5 (5.0-8.0)
[2024-08-16 03:05] VITALS: BP 135/87; PULSE 85; RESP 16; TEMP 37.1; O2SAT 96
== END 2024-08-16 03:05 | disposition home or self-care (01) ==
PROVIDERS: Emergency Provider Emergency Medicine; PCP Internal Medicine
DX: K56.49 Other impaction of intestine (principal); Z85.3 Personal history of malignant neoplasm of breast
CPT/HCPCS: 74019; 81003; 99283

== ENCOUNTER 2025-02-09 09:20 | Outpatient (CLI) | payer BC, SELFPAY ==
[2025-02-09 09:51] LABS: Basophils Absolute Auto 0.05 K/mm3 (0.00-0.10); Eosinophils Absolute Auto 0.28 K/mm3 (0.02-0.50); Eosinophils Percent Auto 5.3 % (1.0-6.0); Hematocrit 37.9 % (35.0-49.0); Hemoglobin 12.4 g/dL (12.0-15.0); Immature Granulocyte Absolute 0.02 K/mm3 (0.00-0.00); Immature Granulocyte Percent A 0.4 % (0.0-0.0); Lymphocytes Absolute Auto 1.91 K/mm3 (1.10-4.50); Lymphocytes Percent Auto 36.5 % (18.0-42.0); Mean Corpuscular HGB Conc 32.7 g/dL (32-36); Mean Corpuscular Hemoglobin 31.6 pg (27.0-31.0); Mean Corpuscular Volume 96.7 fL (78.0-102.0); Mean Platelet Volume 10.9 fl (9.2-11.8); Monocytes Absolute Auto 0.48 K/mm3 (0.10-0.90); Monocytes Percent Auto 9.2 % (2.0-11.0); Neutrophils Percent Auto 47.6 % (50.0-70.0); Platelet Count Result 242 K/mm3 (150-420); Red Blood Count 3.92 M/mm3 (4.20-5.40); Red Cell Distribution Width 14.2 % (11.6-14.4); White Blood Count 5.2 K/mm3 (4.8-10.8)
[2025-02-09 09:56] LABS: Add Urine Microscopic? YES; Appearance Urine Clear (Clear); Bilirubin Urine Negative (Negative); Blood Urine Negative (Negative); Color Urine Yellow (Yellow); Glucose Urine UA Negative (Negative); Ketones Urine Negative (Negative); Leukocyte Esterase Ur 1+ LEU/UL (Negative); Nitrate Urine Negative (Negative); Protein Urine Negative (Negative); Specific Grav Ur 1.015 (1.010-1.020); pH Urine 6.5 (5.0-8.0)
--- OUTSIDE RECORDS SUMMARY | 2025-02-09 09:58 | XMS_ITS | Encounter Summary ---
Author Organization [facility] Healthcare Address [address] [place] [address] Care Team Providers Care Piping Drafter Name Role Phone Rajesh Connolly MD Unavailable [phone] Rajesh Connolly MD Primary Care Provider [phone] Nikki Cuellar MD Unavailable Ling Goldsmith MD Unavailable [phone] Felipe Simeon MD Unavailable Encounter Details Date Type Department Care Team (Late st Contact Info) Description 08/18/2024 Telephone [facility] Advanced Medicine Radiation Oncology [facility] Advanced Medicine [place], [place] [id number] Nikki Cuellar MD [address] [facility] [address] [place] [address] Social History Tobacco Use Types Packs/Day Years [...] on file Legal Sex Female 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 Gender Identity Female 02/20/2020 12:23 AM CDT Sexual Orientation Straight 07/08/2024 2: 34 PM CDT documented as of this encounter Plan of Treatment Not on file documented as of this encounter Visit Diagnoses Not on filedocumented in this encounter Care Teams Piping Drafter Relationship Specialty Start Date End Date Rajesh Connolly MD [address] [place] [address] PCP - General Internal Medicine 08/13/23 Rajesh Connolly MD Referring Physician Internal Medicine 02/21/19 Nikki Cuellar MD [address] [facility] [address] [place] [address] Radiation Oncologist Radiation Oncology 06/26/24 Ling Goldsmith MD [address] [place] [address] Surgeon Surgical Oncology 06/26/24 Felipe Simeon MD [address] [facility] [address] [place] [address] Consulting Physician Medical Oncology 06/26/24 documented as of this encounter
--- OUTSIDE RECORDS SUMMARY | 2025-02-09 09:58 | XMS_ITS | Encounter Summary ---
Author Organization [facility] Healthcare Address [address] [place] [address] Care Team Providers Care Hepatologist Name Role Phone Nakita Falk MD Primary Care Provider [phone] Reason for Visit * Diagnostic Imaging (Routine) - Pending Review Specialty Diagnoses / Procedures Referred By Kirsten dodge Referred To Contact Procedures Breast Imaging Screening Outside Reference Transcribed Order, Provider Referral ID Status Reason Start Date Expiration Date V isits Requested Visits Authorized [id number] Pending Review 05/15/2024 06/14/2025 1 1 Encounter Details Date Type Department Care Team (Late st Contact Info) Description 09/11/2018 Hospital Encounter [facility] [address] [place] [id number] Social History Tobacco Use Types Packs/Day Years [...] on file Legal Sex 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 Gender Identity Female 02/20/2020 12:23 AM CDT Sexual Orientation Straight 07/08/2024 2: 34 PM CDT documented as of this encounter Functional Status * Audit-C Score Answer Date of Assessment Author 0 06/26/2024 9:09 AM CDT Moriah Smith RN * Question Answer Date of Assessment Author Q1: [...] Never 06/26/2024 9:09 AM Abbey Delgadillo RN documented as of this encounter Plan of Treatment Not on file documented as of this encounter Procedures Procedure Name Priority Date/Time Associated Diagnosis Comments BREAST IMAGING MG SCREENING OUTSIDE REFERENCE Routine 09/11/2018 12:00 AM SENIOR LEAD JAVA DEVELOPER documented in this encounter Results * Breast Imaging Screening Outside Reference (09/11/2018 12:00 AM SENIOR LEAD JAVA DEVELOPER) Impressions RAD_MAMMO_[facility] - 05/15/2024 12:42 PM CDT These images are for Reference purposes only and have not been reviewed by [facility] Radiology. There will be no report generated by a [facility] Radiologist. Narrative RAD_MAMMO_[facility] - [...] COVID: Suspected 09/13/2023 09/14/2023 09/14/2023 3:05 AM SENIOR LEAD JAVA DEVELOPER COVID: Suspected 09/14/2023 09/14/2023 09/14/2023 4:33 PM SENIOR LEAD JAVA DEVELOPER COVID19 09/14/2023 09/14/2023 09/24/2023 3:05 AM SENIOR LEAD JAVA DEVELOPER COVID: Recovered Comment:Added based on recent COVID infection. 09/24/2023 10/23/2023 12/23/2023 3:06 AM C DT documented as of this encounter Care Teams Hepatologist Relationship Specialty Start Date End Date Nakita Falk MD [address] [facility] [address] [place] [address] PCP - General 02/19/18 08/12/23 documented as of this encounter
--- OUTSIDE RECORDS SUMMARY | 2025-02-09 09:58 | XMS_ITS | Encounter Summary ---
Author Organization [facility] Address [address] [place] [address] Phone Care Team Providers Care Cross Cut Sawyer Name Role Phone Nakita Falk MD Primary Care Provider [phone] Rajesh Connolly MD Unavailable [phone] Rajesh Connolly MD Primary Care Provider [phone] Nikki Cuellar MD Unavailable Ling Goldsmith MD Unavailable [phone] Felipe Simeon MD Unavailable Encounter Details Date Type Department Care Team (Latest Contact Info) Description 07/12/2023 Orders Only [facility] Scanning, Provider Social History Tobacco Use Types Packs/Day Years Used Date Smoking Tobacco: Never Smokeless Tobacco: Never Comments:in college Alcohol Use Standard Drinks/Week Comments Yes 1 (1 standard drink = 0.6 oz pur e alcohol) Comments No Sex and Gender Information Value Date Recorded Sex Assigned at Not on file 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 Gender Identity Female 02/20/2020 12:23 AM CDT Sexual Orientation Straight 07/08/2024 2: 34 PM CDT documented as of this encounter Plan of Treatment Not on file documented as of this encounter Procedures Procedure Name Priority Date/Time Associated Diagnosis Comments SCAN - RADIOLOGY/IMAGING 07/12/2023 documented in this encounter Results * SCAN - RADIOLOGY/IMAGING (07/12/2023) Anatomical Region Laterality Modality Other us Provider Scanning Final Result documented in this encounter Visit Diagnoses Not on filedocumented in this encounter Additional Health Concerns Infection Onset Date Last Indicated Resolved Time Rhino/Enterovirus 07/06/2023 07/06/2023 07/13/2023 3:05 AM CDT COVID: Suspected 09/13/2023 09/14/2023 09/14/2023 3:05 AM MARKETING TECHNOLOGY COORDINATOR COVID: Suspected 09/14/2023 09/14/2023 09/14/2023 4:33 PM MARKETING TECHNOLOGY COORDINATOR COVID19 09/14/2023 09/14/2023 09/24/2023 3:05 AM MARKETING TECHNOLOGY COORDINATOR COVID: Recovered Comment:Added based on recent COVID infection. 09/24/2023 10/23/2023 12/23/2023 3:06 AM C DT documented as of this encounter Care Teams Cross Cut Sawyer Relationship Specialty Start Date End Date Nakita Falk MD [address] [place] [address] PCP - General 02/19/18 08/12/23 Rajesh Connolly MD [address] [place] [address] PCP - General Internal Medicine 08/13/23 Rajesh Connolly MD [address] [place] [address] Referring Physician Internal Medicine 02/21/19 Nikki Cuellar MD [address] [facility] [address] [place] [address] Radiation Oncologist Radiation Oncology 06/26/24 Ling Goldsmith MD [address] [place] [address] Surgeon Surgical Oncology 06/26/24 Fa'Felipe alcocer MD [address] [facility] [address] [place] [address] Consulting Physician Medical Oncology 06/26/24 documented as of this encounter
--- OUTSIDE RECORDS SUMMARY | 2025-02-09 09:58 | XMS_ITS | Clinical Summary ---
Author Organization [employer] [id number] Address [address] [place] [address] Care Team Providers Care Environmental Program Manager Name Role Phone Rajesh Connolly MD Primary Care Provider + Allergies Active Allergy Reactions Criticality Noted Date Comments Levofloxacin Other (See Comments) High 11/09/2022 Passing out Brain Fog Light headed Sick Medications losartan-hydroC HLOROthiazide (HYZAAR) 100-12.5 mg tablet Take 1 Tablet by mouth daily. 4 Active montelukast (SINGULAIR) 10 mg tablet Take 10 mg by mouth daily. 3 Active DULoxetine (CYMBALTA) 60 mg Capsule, Delayed Release(E.C.) Take 60 mg by mouth daily. 3 Active propranoloL (INDERAL LA) 80 mg Long Acting 24 hour capsule Take 80 mg by mouth daily. 3 Active rizatriptan (MAXALT CARPENTERS HELPER) 10 mg Tablet, Rapid Dissolve PLACE 1 TAB ON TOP OF TONGUE, ALLOW TO DISSOLVE THEN SWALLOW.MAY REPEAT EVERY 2 HRS MAX 30 MG/24HRS 4 Active SUMAtriptan (IMITREX) 4 mg/0.5 mL Cartridge Inject 4mg SC at onset of headache. May repeat after 1 hr if needed. Max 12mg in 24 hrs. 3 Active traZODone (DESYREL) 50 mg tablet Take 50 mg by mouth. 3 Active topiramate (TOPAMAX) 100 mg tablet Take 100 mg by mouth daily. 2 Active aspirin (ECOTRIN EC) 325 mg Tablet, Delayed Release (E.C.) Take 325 mg by mouth daily. Once a week Active cyclobenzaprine (FLEXERIL) 5 mg Tablet Take 1 Tablet (5 mg) by mouth 3 times daily as needed for Spasm. 30 Tablet 1 4 Active Additional Information Patient not taking.Reported on 12/29/2024 naproxen sodium (ANAPROX DS) 550 mg tablet TAKE 1 TABLET (550 MG) BY MOUTH TWICE A DAY WITH MEALS 30 Tablet 1 4 Active Additional Information Patient not taking.Reported on 12/29/2024 acetaminophen (TYLENOL) 500 mg tablet Take 1,000 mg by mouth. Active albuterol sulfate HFA 90 mcg/actuation aerosol inhaler Take 2 Puffs by inhalation. 3 Active cetirizine (ZyrTEC) 10 mg tablet Take 10 mg by mouth daily. 4 Active cholecalciferol 1,250 mcg (50,000 unit) Capsule Take 1 Capsule by mouth every 7 days. 4 Active fluticasone propionate (FLONASE) 50 mcg/spray [place], Suspension nasal inhaler SPRAY 1-2 SPRAYS INTO EACH NOSTRIL ONCE DAILY NEEDED 4 Active tofacitinib (Xeljanz XR) 11 mg Tablet Sustained Release 24HR TAKE 1 TABLET BY MOUTH 1 TIME A DAY EVERY MORNING. 5 Active semaglutide (Ozempic) 1 mg/dose (4 mg/3 mL) Pen Injector Inject 1.25 mg by subcutaneous injection. Active Active Problems No known active problems Encounters Date Type Department Care Team Description 12/29/2024 11:00 AM CDT Office Visit [facility] [address] [facility] [address] [place] [address] Porsche Garrison MD Encounter for gynecological examination without abnormal finding (Primary Dx) 12/24/2024 External Device Data STL ABSTRACTION Provider, Abstract 12/16/2024 External Device Data STL ABSTRACTION Provider, Abstract 12/16/2024 External Device Data STL ABSTRACTION Provider, Abstract 12/13/2024 External Device Data STL ABSTRACTION Provider, Abstract 12/12/2024 External Device Data STL ABSTRACTION Provider, Abstract 12/02/2024 External Device Data STL ABSTRACTION Provider, Abstract from Last 3 Months Family History Medical History Relation Name Comments Diabetes Father Heart Disease Father Other Father Diabetes Maternal Grandmother Heart Disease Maternal Grandmother Other Maternal Grandmother Heart Disease Mother Breast Cancer Neg Hx Ovarian Cancer Neg Hx Uterine Cancer Neg Hx Relation Name Status Comments Father Maternal Grandmother Mother Social History Tobacco Use Types Packs/Day Years Used Date Smoking Tobacco: Never Smokeless Tobacco: Never Alcohol Use Standard Drinks/Week Comments Never 0 (1 standard drink = 0.6 oz pur e alcohol) Comments No Sex and Gender Information Value Date Recorded Sex Assigned at Not on file Legal Sex Female 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 Gender Identity Not on file Sexual Orientation Not on file Last Filed Vital Signs Vital Sign Reading Time Taken Comments Blood Pressure 116/84 12/29/2024 10:59 AM CDT Pulse - - Temperature - - Respiratory Rate - - Oxygen Saturation - - Inhaled Oxygen Concentration - - Weight 95.2 kg (209 lb 12.8 oz) 025 10:59 AM CDT Height 175.3 cm (5' 9 ) 12/29/2024 10:5 9 AM CDT Body Mass Index 30.98 12/29/2024 10:59 AM CDT Plan of Treatment Upcoming Encounters Date Type Department Care Team (Late st Contact Info) Description 01/04/2026 11:00 AM CDT Office Visit [facility] [address] [facility] [address] [place] [address] [place] [address] [place] [address] Health Maintenance Due Date Last Done Comments Pre-Diabetes and Diabetes Screening 1960 ZOSTER VACCINE (1 of 2) 1979 COLORECTAL SCREENING 2005 Colorectal Cancer Screening 2005 FIT-DNA Q 3 years 2005 FIT/FOBT Q 1 year 2005 Flex Sig/CT Colonography Q 5 years 2005 RSV VACCINE (60+ or ) (1 - Risk 60-74 years 1-dose series) 2020 INFLUENZA VACCINE (#1) 2024 , 07/23/2020, 07/23/2019 DTAP/TDAP/TD VACCINES (2 - T d or Tdap) 01/14/2025 01/14/2015 BREAST CANCER SCREENING 04/30/2025 04/30/20, 04/30/2024, 04/28/2024 PAP SMEAR 12/25/2026 12/26/2023 CERVICAL CANCER SCREENING 12/25/2028 HPV/Cotest (21-29) 12/25/2028 12/26/2023 HPV/Cotest (30-65) 12/25/2028 12/26/2023 Procedures Procedure Name Priority Date/Time Associated Diagnosis Comments MAMMO BILAT DIAGNOSTIC Routine 04/30/2024 3:34 PM CDT CERV/VAG CYTO AGE BASED SCREEN PAP Routine 12/26/2023 2:37 PM CDT Encounter for gynecological examination without abnormal finding from Last 3 Months or Most Recently Relevant to Health Maintenance Results * MAMMO BILAT DIAGNOSTIC (04/30/2024 3:34 PM CDT) Anatomical Region Laterality Modality Breast Bilateral Mammography Porsche Garrison MD MAMMO ORDERABLES Final Result * CERV/VAG CYTO AGE BASED SCREEN PAP (12/26/2023 2:37 PM CDT) COMMENT (PAP): [facility] Comment: This order for age-based cervical cancer and STI screening follows ACOG guidelines(PB 168, 140, RSZ074). See individual assays for performing site location. CLINICAL INFORMATION [facility] Comment:None given LAST MENSTRUAL PERIOD [facility] Comment:NONE GIVEN PREV PAP: [facility] Comment:NONE GIVEN PREV BX: [facility] Comment:NONE GIVEN SOURCE [facility] Comment:Endocervix ADEQUACY: [facility] Comment:SATISFACTORY FOR VIKTOR LUATION PAP INTERP [facility] Comment: Cytology Results: Negative for intraepithelial lesion or malignancy. Atrophic pattern; predominantly parabasal cells COMMENT (PAP TEST) [facility] Comment: This Pap test has been evaluated with computer assisted technology. INCOMING FREIGHT CLERK: [facility] Comment: BES, CT(ASCP) CT screening location: [place] [address] [place] [address] EXPLANATORY NOTE [facility] Comment: EXPLANATORY NOTE: The Pap is a screening test for cervical cancer. It is not a diagnostic test and is subject to false negative and false positive results. It is most reliable when a satisfactory sample, regularly obtained, is submitted with relevant clinical findings and history, and when the Pap result is evaluated along with historic and current clinical information. HPV E6/E7 Not Detected Not Detected [facility] Comment: Methodology: Scrap Charger-Mediated Amplification This assay detects E6/E7 viral messenger RNA (mRNA) from 14 high-risk HPV types (16,18,31,33,35,39,45,51,52,56,58,59,66,68). Cervical sources are required for HPV testing. If a vaginal source from a patient who has had a total hysterectomy with removal of cervix was submitted, please contact the testing laboratory for alternative testing options. For additional information, please refer to http://education.Intern/faq/TAZ317y4 (This link if provided for information/ educational purposes only.) Test Performed at: [facility] [address] [place] [address] Crystal Feliciano MD Genital SWAB OF ENDOCERVIX / Unknown 12/26/2023 2:37 PM CDT 12/27/2023 1:49 AM CDT Porsche Garrison MD PATHOLOGY/CYTOLOGY ORDERABLES F inal Result [facility] [phone] [facility] [employer] Include [address] [facility] [address] [place] [address] from Last 3 Months or Most Recently Relevant to Health Maintenance Insurance [facility] [employer] Care Teams Environmental Program Manager Relationship Specialty Start Date End Date Rajesh Connolly MD [address] [place] [phone] PCP - General Internal Medicine 11/28/23
--- OUTSIDE RECORDS SUMMARY | 2025-02-09 09:58 | XMS_ITS ---
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, estrogen receptor positive 05/20/2024 Cancer Staging:Pathologic stage from 05/29/2024:Stage IA(pT1a, pN0(sn), cM0, G1, ER+, FL+, HER2-) - Signed by Nikki Cuellar MD on 06/26/2024 Cough due to RYLEE inhibitor 05/16/2023 Assessment & Plan (05/16/2023 10:35 AM CDT): Resolved with discontinuation of lisinopril at last visit Foot pain, right 05/16/2023 Subacute cough 11/09/2022 Assessment & Plan (11/09/2022 1:03 PM MENTAL HYGIENIST): This may represent a postinfectious cough but I also I am concerned that her RYLEE inhibitor may be playing a role and I am going to convert her from lisinopril to losartan. I have instructed her to monitor home blood pressures as well. She will use symptomatic treatment with her Tessalon Perles and I have recommended that in the short term to use her albuterol 2 puffs in the morning and afternoon. She has significant sicca symptoms and I recommended that she use xylitol products as well as small sips of water. She has an upcoming appointment for pulmonary function tests with pulmonary consultation for long-term follow-up with me of her ILD. Interstitial lung disease 05/04/2022 Assessment & Plan (05/16/2023 10:34 AM CDT): I appreciate Dr. Vaughn's evaluation. We will continue to maintain on Xeljanz. I reviewed her pulmonary function tests which are stable and await echocardiogram. Assessment & Plan (11/09/2022 1:02 PM MENTAL HYGIENIST): Isabella 1 positive anti synthetase syndrome currently with well controlled articular, cutaneous disease and no progression of her pulmonary disease over the last 6 months but will need close follow-up. I have asked her to increase her Flovent to 2 puffs b.i.d. for the next week to see if this will help with her cough which seems to be more upper respiratory. Assessment & Plan (05/04/2022 1:27 PM CDT): The presence of Isabella 1 in her is surprising after 10 years of seronegative arthritis in the absence of muscle disease and she certainly does not have any classic cutaneous manifestations. Her articular disease is well controlled. So far I do not have anything but her reports to review and I have asked her to obtain a DVD had of her CT scan as well as her prior chest x-rays since suggest she may have had an abnormal chest x-ray as early as 2019. In the absence of systemic inflammation, improvement of cough, I am going to favor rechecking her pulmonary function test in 3 months in having a follow-up chest CT in our institution at 6 months if her pulmonary function tests are stable at which time she also has an appointment with Pulmonary. Since it seems that infection may have provoked this, I do not necessarily favor changing her to new immunosuppression unless there is evidence of progression Abnormal chest CT 03/30/2022 Pure hypercholesterolemia 09/22/2021 Dupuytren's contracture of both hands 09/16/2020 Assessment & Plan (09/16/2020 12:34 PM MENTAL HYGIENIST): This is a new problem for her. At this time, I recommend simply extension exercises but I have discussed with her percutaneous fasciotomy through Dr. Rosas should this be progressive. We discussed the genetic nature of this. Carpal tunnel syndrome, bilateral 10/22/2019 Overview (10/22/2019): Added automatically from request for surgery [id number] Shoulder pain, right 05/31/2019 Assessment & Plan (05/31/2019 5:43 AM CDT): Status post intra-articular injection today; if no improvement, I recommend radiographs and assessment of the rotator cuff. Hypertension 02/14/2018 Assessment & Plan (05/23/2018 3:02 PM CDT): Hypertension is improving with treatment. Continue current treatment regimen. Blood pressure will be reassessed With primary care physician and at our next visit. Osteopenia 09/27/2017 Osteoarthritis of lumbar spine 01/18/2016 Trochanteric bursitis 01/18/2016 High risk medication use 01/18/2016 Anxiety 01/31/2011 Insomnia 10/01/2010 Rheumatoid arthritis with negative rheumatoid fa ctor 10/01/2010 Assessment & Plan (05/16/2023 10:34 AM CDT): Today she presents in near remission on Xeljanz without adverse effects. I feel the issue with her medial arches a mechanical problem and I have recommended that she use moles skin in her shoes because she over pronates. Long-term she may benefit from additional orthotics. We will obtain monitoring laboratories today. In addition we discussed vaccinations. I would recommend that she hold her Xeljanz for 48 hours before and 1 week after any vaccination to optimize response. She would benefit from Shingrix as well as influenza vaccine later on in the year and a new modified COVID-19 when available. Assessment & Plan (11/09/2022 1:01 PM MENTAL HYGIENIST): No articular symptoms at this time and I feel this is likely part of her anti synthetase syndrome Assessment & Plan (04/21/2021 1:03 PM CDT): Clinically we continue to suspect that this is truly a polyarticular psoriatic arthritis as Xeljanz has controlled both rash and articular symptoms. She needs monitoring laboratory tests of CBC to check for blood count alteration and CMP to assess hepatic and renal function as well as repeat latent tuberculosis testing. She has had an outstanding response and will otherwise simply follow up with me in 6 months. Assessment & Plan (09/16/2020 12:34 PM MENTAL HYGIENIST): Well controlled synovitis today. The Dupuytren's contracture is relatively rapidly progressing as was not apparent at last knrx-jo-pzab visit which was almost a year ago. She is due for monitoring laboratories and these will be performed today. We discussed potentially lowering the dose of methotrexate but she is doing so well today that she would prefer to maintain her current regimen and we discussed that we will re-consider this at a later time. Assessment & Plan (03/26/2020 8:09 AM CDT): She is c/o swelling that has not resolved; I have asked her to trial stopping nabumetone to see if this makes any difference in her puffy fingers vs true synovitis. She will get her labs soon. Assessment & Plan (01/15/2020 11:28 AM CDT): Her carpal tunnel is improved with surgical therapy. She isn't noticing ongoing swelling but still has significant knee pain that was associated with this last flare. We will obtain monitoring laboratories and she will have this at her local physician's office and I will mail her orders. We have discussed that following improvement in local COVID cases that she will have bilateral knee radiographs and we will determine whether intra-articular Synvisc is indicated. Assessment & Plan (10/16/2019 12:03 PM MENTAL HYGIENIST): Longstanding seronegative rheumatoid arthritis presents today with high disease activity. Recently she has developed an eczematoid psoriatic rash and worsening inflammatory arthritis. She has previously failed Enbrel and Humira and was an excellent responder to Orencia for years but recently had significant breakthrough. At this time she is on 15 mg of methotrexate weekly and was requiring steroids and today is almost incapacitated with inflammatory synovitis and bilateral carpal tunnel syndrome. She is given a therapeutic left shoulder and left knee injection and advised to restart 5 mg of oral prednisone. We will apply for treatment with Xeljanz 11 mg. She had latent tuberculosis testing that was negative. Monitoring laboratories on increased dose of methotrexate are obtained. Assessment & Plan (07/23/2019 1:37 PM CDT): Severe flare in this patient and requiring significant doses of steroids for relief. 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 She has already failed 2 TNF inhibitors in the past for her arthritis and this the 1st major breakthrough he has had a on Orencia which she has taken for many years. I would consider a change to Xeljanz at this time the next preferred agent if there is still some uncertainty regarding a diagnosis of psoriasis. We will check inflammatory markers today and give her an influenza vaccine. We will try and get her a shingles vaccination as well she has had a prior episode of shingles before use of Xeljanz. Was in the short term, I would like to increase her dose of methotrexate as she is on a reduced dosage as higher doses were really giving her gastrointestinal distress. I am giving her samples of Rasuvo to see if she can tolerate subcutaneous dosing better. She was given 3 samples of this and I have asked her to try and decrease her prednisone to 15 mg. Assessment & Plan (05/31/2019 5:42 AM CDT): All joints other than her shoulder or quiet; I recommend monitoring laboratory tests today on her methotrexate. Assessment & Plan (10/28/2018 10:26 AM MENTAL HYGIENIST): 58-year-old white female with seronegative rheumatoid arthritis who presents today with low disease activity on her current regimen of methotrexate plus Orencia. I have encouraged her to perform more exercise and she will try to locate or set up home gym. We will perform monitoring laboratory tests today and she will follow up with me in 6 months or on an as-needed basis. Assessment & Plan (05/23/2018 3:01 PM CDT): Low disease activity is present. Monitoring laboratories of inflammatory markers, CBC and CMP are obtained. Follow up with me in 6 months Common migraine without aura 01/18/2010 Current Treatment and Therapy Plans Zoledronic Acid Every 26 Weeks* Plan Start Date:04/23/2025 Plan Provider:Felipe Simeon MD Linked Problems Malignant neoplasm of upper- outer quadrant of left breast in female, estrogen receptor positive (HCC)Osteopenia, unspecified location Treatment Medications Current Day (Day 1 , Cycle 1 - Planned for 04/23/2025) Next Day (Day 1, Cycle 2 - Planned for 10/22/2025) No medications scheduled. No medications schedul ed. No medications scheduled. Past Treatment and Therapy Plans No past plan information found. Radiation Treatments * Course [id number]/[id number]/2024 - 07/29/2024 Treatment Period Energy Fraction Dose Fractions Total Dose Plans Planned APBI LT BRST 07/23/2024 - 07/29/2024 600 5 / 3,000 Reference Points Delivered [id number] 07/23/2024 - 07/29/2024 3,000 Lifetime Dose Tracking * Chemical Lifetime Dose Automatic Entry Manual Entr y Fluoro Time 1 minutes 1 minutes 0 minutes Air kerma at the reference point (Ka,r) 22 mGy 2 2 mGy 0 mGy DLP 1,783 mGycm 1,783 mGycm 0 mGycm
--- OUTSIDE RECORDS SUMMARY | 2025-02-09 09:58 | XMS_ITS | Encounter Summary ---
Author Organization [facility] Address [address] [place] [address] Phone Care Team Providers Care Parking Manager Name Role Phone Nakita Falk MD Primary Care Provider [phone] Rajesh Connolly MD Unavailable [phone] Rajesh Connolly MD Primary Care Provider + [phone] Nikki Cuellar MD Unavailable Ling Goldsmith MD Unavailable [phone] Felipe Simeon MD Unavailable Encounter Details Date Type Department Care Team (Late st Contact Info) Description 03/21/2022 Orders Only [facility] Scanning, Provider Social History Tobacco Use Types Packs/Day Years Used Date Smoking Tobacco: Never Smokeless Tobacco: Never Comments:in college Alcohol Use Standard Drinks/Week Comments Yes 1 (1 standard drink = 0.6 oz pur e alcohol) Comments No Sex and Gender Information Value Date Recorded Sex Assigned at Not on file Legal Sex Female 7:40 PM HAND 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 Gender Identity Female 02/20/2020 12:23 AM CDT Sexual Orientation Straight 07/08/2024 2: 34 PM CDT documented as of this encounter Plan of Treatment Not on file documented as of this encounter Procedures Procedure Name Priority Date/Time Associated Diagnosis Comments SCAN - RADIOLOGY/IMAGING 03/21/2022 documented in this encounter Results * SCAN - RADIOLOGY/IMAGING (03/21/2022) Anatomical Region Laterality Modality Other us Provider Scanning Edited Result - Final documented in this encounter Visit Diagnoses Not on filedocumented in this encounter Additional Health Concerns Infection Onset Date Last Indicated Resolved Time COVID: Suspected 07/06/2023 07/06/2023 07/06/2023 2:45 PM CDT Rhino/Enterovirus 07/06/2023 07/06/2023 07/13/2023 3:05 AM CDT COVID: Suspected 09/13/2023 09/14/2023 09/14/2023 3:05 AM HAND 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 COVID: Suspected 09/14/2023 09/14/2023 09/14/2023 4:33 PM HAND 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 COVID19 09/14/2023 09/14/2023 09/24/2023 3:05 AM HAND 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 COVID: Recovered Comment:Added based on recent COVID infection. 09/24/2023 10/23/2023 12/23/2023 3:06 AM C DT documented as of this encounter Care Teams Parking Manager Relationship Specialty Start Date End Date Naikta aFlk MD [address] [place] [address] PCP - General 02/19/18 08/12/23 Rajesh Connolly MD [address] [place] [address] PCP - General Internal Medicine 08/13/23 Rajesh Connolly MD [address] [place] [address] Referring Physician Internal Medicine 02/21/19 Nikki Cuellar MD [address] [facility] [address] [place] [address] Radiation Oncologist Radiation Oncology 06/26/24 Ling Goldsmith MD [address] [place] [address] Surgeon Surgical Oncology 06/26/24 Fa'Felipe alcocer MD [address] [facility] [address] [place] [address] Consulting Physician Medical Oncology 06/26/24 documented as of this encounter
--- OUTSIDE RECORDS SUMMARY | 2025-02-09 09:58 | XMS_ITS | Encounter Summary ---
Author Organization [facility] Address [address] [place] [address] Phone Care Team Providers Care Solar Tech Name Role Phone Rajesh Connolly MD Unavailable [phone] Rajesh Connolly MD Primary Care Provider [phone] Nikki Cuellar MD Unavailable Ling Goldsmith MD Unavailable [phone] Felipe Simeon MD Unavailable Encounter Details Date Type Department Care Team (Latest Contact Info) Description 11/14/2023 Orders Only [facility] Scanning, Provider Social History Tobacco Use Types Packs/Day Years Used Date Smoking Tobacco: Never Smokeless Tobacco: Never Comments:in college Alcohol Use Standard Drinks/Week Comments Yes 1 (1 standard drink = 0.6 oz pur e alcohol) Personal Safety Answer Date Recorded Getting School Help Needed Not on file 09/17 Comments No Sex and Gender Information Value Date Recorded Sex Assigned at Not on file Legal Sex Female 7:40 PM ORDER ENTRY SPECIALIST Gender Identity Female 02/20/2020 12:23 AM CDT Sexual Orientation Straight 07/08/2024 2: 34 PM CDT documented as of this encounter Plan of Treatment Not on file documented as of this encounter Procedures Procedure Name Priority Date/Time Associated Diagnosis Comments SCAN - RADIOLOGY/IMAGING 11/14/2023 SCAN - LABS 11/14/2023 documented in this encounter Results * SCAN - LABS (11/14/2023) us Provider Scanning Final Result * SCAN - RADIOLOGY/IMAGING (11/14/2023) Anatomical Region Laterality Modality Other us Provider Scanning Final Result documented in this encounter Visit Diagnoses Not on filedocumented in this encounter Additional Health Concerns Infection Onset Date Last Indicated Resolved Time COVID: Recovered Comment:Added based on recent COVID infection. 09/24/2023 10/23/2023 12/23/2023 3:06 AM C DT documented as of this encounter Care Teams Solar Tech Relationship Specialty Start Date End Date Rajesh Connolly MD [address] [place] [address] PCP - General Internal Medicine 08/13/23 Rajesh Connolly MD Referring Physician Internal Medicine 02/21/19 Nikki Cuellar MD [address] [facility] # [address] [place] [address] Radiation Oncologist Radiation Oncology 06/26/24 Ling Goldsmith MD [address] [place] [address] Surgeon Surgical Oncology 06/26/24 Felipe Simeon MD 1 [facility] [address] [place] [address] Consulting Physician Medical Oncology 06/26/24 documented as of this encounter
--- OUTSIDE RECORDS SUMMARY | 2025-02-09 09:58 | XMS_ITS | Clinical Summary ---
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 Gender Identity Not on file Sexual Orientation Not on file Plan of Treatment Health Maintenance Due Date Last Done Comments Cervical Cancer Screening Pa p Smear (Age 30 to 64) Every 3 Years 1960 Colorectal Cancer Screening Colonoscopy (10 Years) 1960 Annual Physical 1963 Hepatitis C 1978 DTaP, Tdap and Td Vaccines ( 1 - Tdap) 1979 Cervical Cancer Screening Pa p with HPV Testing (Age 30 to 64) Every 5 Years 1990 Cervical Cancer Screening with HPV 1990 Mammogram Screening 2000 Pneumococcal Vaccine: 50+ Ye ars (1 of 1 - PCV) 2010 Zoster Vaccines (1 of 2) 2010 COVID-19 Vaccine ( - 2023-2 5 season) 2024 RSV Immunization or 60+ Years (1 - 1-dose 75+ series) 2035 Meningococcal B Vaccine Aged Out No l onger eligible based on patient's age to complete this topic Meningococcal Vaccine Aged Out No franklin ronaldo eligible based on patient's age to complete this topic RSV Immunizations Under 20 Months Aged Out No longer eligible based on patient's age to complete this topic
--- OUTSIDE RECORDS SUMMARY | 2025-02-09 09:58 | XMS_ITS | Encounter Summary ---
Author Organization [facility] Address [address] [place] [address] Care Team Providers Care Clerical Car Checker Name Role Phone Nakita Falk MD Primary Care Provider [phone] Reason for Visit * Diagnostic Imaging (Routine) - Pending Review Specialty Diagnoses / Procedures Referred By Kirsten dodge Referred To Contact Procedures Breast Imaging Screening Outside Reference Transcribed Order, Provider Referral ID Status Reason Start Date Expiration Date V isits Requested Visits Authorized [id number] Pending Review 05/15/2024 06/14/2025 1 1 Encounter Details Date Type Department Care Team (Late st Contact Info) Description 05/14/2017 Hospital Encounter [facility] [address] [place] [id number] Social History Tobacco Use Types Packs/Day Years [...] on file Legal Sex Female 7:40 PM TURF GROWER Gender Identity Female 02/20/2020 12:23 AM CDT Sexual Orientation Straight 07/08/2024 2: 34 PM CDT documented as of this encounter Functional Status * Audit-C Score Answer Date of Assessment Author 0 06/26/2024 9:09 AM CDT Moriah Smith RN * Question Answer Date of Assessment Author Q1: How often do you have a drink containing alcohol? Never 06/26/2024 9:09 AM CORIT Abbey Smith RN Q2: How many drinks containing alcohol do you have on a typical day when you are drinking? Patient does not drink 06/26/2024 9:09 AM CORIT Abbey Smith RN Q3: How often do you have six or more drinks on one occasion? Never 06/26/2024 9:09 AM CORIT Abbey Smith RN documented as of this encounter Plan [...] and have not been reviewed by [facility] Radiology. There will be no report generated by a [facility] Radiologist. Narrative RAD_MAMMO[facility] - 05/15/2024 12:42 [...] COVID: Suspected 09/13/2023 09/14/2023 09/14/2023 3:05 AM TURF GROWER COVID: Suspected 09/14/2023 09/14/2023 09/14/2023 4:33 PM TURF GROWER COVID19 09/14/2023 09/14/2023 09/24/2023 3:05 AM TURF GROWER COVID: Recovered Comment:Added based on recent COVID infection. 09/24/2023 10/23/2023 12/23/2023 3:06 AM C DT documented as of this encounter Care Teams Clerical Car Checker Relationship Specialty Start Date End Date Nakita Falk MD [address] [place] [address] [address] PCP - General 01/29/17 06/27/17 documented as of this encounter
--- OUTSIDE RECORDS SUMMARY | 2025-02-09 09:58 | XMS_ITS | Encounter Summary ---
Author Organization [facility] Address [address] [place] [address] Care Team Providers Care Home Appliance Tech Name Role Phone Unavailable Primary Care Provider Unavailabl e Reason for Visit * Diagnostic Imaging (Routine) - Pending Review Specialty Diagnoses / Procedures Referred By Kirsten dodge Referred To Contact Procedures Breast Imaging Screening Outside Reference Transcribed Order, Provider Referral ID Status Reason Start Date Expiration Date V isits Requested Visits Authorized [id number] Pending Review 05/15/2024 06/14/2025 1 1 Encounter Details Date Type Department Care Team (Late st Contact Info) Description 08/18/2015 Hospital Encounter [facility] [address] [place] [address] Social History Tobacco Use Types Packs/Day Years [...] on file Legal Sex Female 7:40 PM GREEN CHAINER Gender Identity Female 02/20/2020 12:23 AM CDT [...] SCREENING OUTSIDE REFERENCE Routine 08/18/2015 12:00 AM GREEN CHAINER documented in this encounter Results * Breast Imaging Screening Outside Reference (08/18/2015 12:00 AM GREEN CHAINER) Impressions [facility] - 05/15/2024 12:42 PM CDT These images are for Reference purposes only and have not been reviewed by [facility] Radiology. There will be no report generated by a [facility] Radiologist. Narrative [facility]_M[facility]MO[facility] - 05/15/2024 12:42 PM [...] COVID: Suspected 09/13/2023 09/14/2023 09/14/2023 3:05 AM GREEN CHAINER COVID: Suspected 09/14/2023 09/14/2023 09/14/2023 4:33 PM GREEN CHAINER COVID19 09/14/2023 09/14/2023 09/24/2023 3:05 AM GREEN CHAINER COVID: Recovered Comment:Added based on recent COVID infection. 09/24/2023 10/23/2023 12/23/2023 3:06 AM C DT documented as of this encounter
--- OUTSIDE RECORDS SUMMARY | 2025-02-09 09:59 | XMS_ITS | Encounter Summary ---
Author Organization [facility] Address [address] [place] [address] Phone Care Team Providers Care Basting Machine Operator Name Role Phone Nakita Falk MD Primary Care Provider [phone] Rajesh Connolly MD Unavailable [phone] Rajesh Connolly MD Primary Care Provider + [phone] Nikki Cuellar MD Unavailable Ling Goldsmith MD Unavailable [phone] Felipe Simeon MD Unavailable Encounter Details Date Type Department Care Team (Late st Contact Info) Description 05/16/2021 Orders Only [facility] Scanning, Provider Social History Tobacco Use Types Packs/Day Years Used Date Smoking Tobacco: Never Smokeless Tobacco: Never Comments:in college Alcohol Use Standard Drinks/Week Comments Yes 1 (1 standard drink = 0.6 oz pur e alcohol) Comments No Sex and Gender Information Value Date Recorded Sex Assigned at Not on file Legal Sex Female 7:40 PM HIGH SCHOOL 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 Gender Identity Female 02/20/2020 12:23 AM CDT Sexual Orientation Straight 07/08/2024 2: 34 PM CDT documented as of this encounter Plan of Treatment Not on file documented as of this encounter Procedures Procedure Name Priority Date/Time Associated Diagnosis Comments PULMONARY - RESULT SCAN 04/17/2022 SCAN - LABS 05/16/2021 documented in this encounter Results * PULMONARY - RESULT SCAN (04/17/2022) Anatomical Region Laterality Modality Other us Provider Scanning Final Result * SCAN - LABS (05/16/2021) us Provider Scanning Final Result documented in this encounter Visit Diagnoses Not on filedocumented in this encounter Additional Health Concerns Infection Onset Date Last Indicated Resolved Time COVID: Suspected 07/06/2023 07/06/2023 07/06/2023 2:45 PM CDT Rhino/Enterovirus 07/06/2023 07/06/2023 07/13/2023 3:05 AM CDT COVID: Suspected 09/13/2023 09/14/2023 09/14/2023 3:05 AM HIGH SCHOOL DRAFTING TEACHER COVID: Suspected 09/14/2023 09/14/2023 09/14/2023 4:33 PM HIGH SCHOOL DRAFTING TEACHER COVID19 09/14/2023 09/14/2023 09/24/2023 3:05 AM HIGH SCHOOL DRAFTING TEACHER COVID: Recovered Comment:Added based on recent COVID infection. 09/24/2023 10/23/2023 12/23/2023 3:06 AM C DT documented as of this encounter Care Teams Basting Machine Operator Relationship Specialty Start Date End Date Nakita Falk MD [address] [place] [address] PCP - General 02/19/18 08/12/23 Rajesh Connolly MD [address] [place] [address] PCP - General Internal Medicine 08/13/23 Rajesh Connolly MD [address] [place] [address] Referring Physician Internal Medicine 02/21/19 Nikki Cuellar MD [address] [facility] [address] [place] [address] Radiation Oncologist Radiation Oncology 06/26/24 Ling Goldsmith MD [address] [place] [address] Surgeon Surgical Oncology 06/26/24 Fa'Felipe alcocer MD [address] [facility] [address] [place] [address] Consulting Physician Medical Oncology 06/26/24 documented as of this encounter
--- OUTSIDE RECORDS SUMMARY | 2025-02-09 09:59 | XMS_ITS | Encounter Summary ---
Author Organization [facility] Address [address] [place] [address] Phone Care Team Providers Care Acetylene Cylinder Packing Mixer Name Role Phone Nakita Falk MD Primary Care Provider [phone] Rajesh Connolly MD Unavailable [phone] Rajesh Connolly MD Primary Care Provider [phone] Nikki Cuellar MD Unavailable Ling Goldsmith MD Unavailable [phone] Felipe Simeon MD Unavailable Encounter Details Date Type Department Care Team (Latest Contact Info) Description 07/30/2023 Orders Only [facility] Scanning, Provider Social History Tobacco Use Types Packs/Day Years Used Date Smoking Tobacco: Never Smokeless Tobacco: Never Comments:in college Alcohol Use Standard Drinks/Week Comments Yes 1 (1 standard drink = 0.6 oz pur e alcohol) Comments No Sex and Gender Information Value Date Recorded Sex Assigned at Not on file Legal Sex Female 7:40 PM CRANE FOLLOWER Gender Identity Female 02/20/2020 12:23 AM CDT Sexual Orientation Straight 07/08/2024 2: 34 PM CDT documented as of this encounter Plan of Treatment Not on file documented as of this encounter Procedures Procedure Name Priority Date/Time Associated Diagnosis Comments CARDIOLOGY DOCUMENT SCAN 07/30/2023 documented in this encounter Results * CARDIOLOGY DOCUMENT SCAN (07/30/2023) Anatomical Region Laterality Modality Other us Provider Scanning CV CARDIAC SERVICES PROCEDURES Edited Result - Final documented in this encounter Visit Diagnoses Not on filedocumented in this encounter Additional Health Concerns Infection Onset Date Last Indicated Resolved Time COVID: Suspected 09/13/2023 09/14/2023 09/14/2023 3:05 AM CRANE FOLLOWER COVID: Suspected 09/14/2023 09/14/2023 09/14/2023 4:33 PM CRANE FOLLOWER COVID19 09/14/2023 09/14/2023 09/24/2023 3:05 AM CRANE FOLLOWER COVID: Recovered Comment:Added based on recent COVID infection. 09/24/2023 10/23/2023 12/23/2023 3:06 AM C DT documented as of this encounter Care Teams Acetylene Cylinder Packing Mixer Relationship Specialty Start Date End Date Nakita Falk MD [address] [place] [address] [address] [place] [address] PCP - General 02/19/18 08/12/23 Rajesh Connolly MD [address] [place] [address] PCP - General Internal Medicine 08/13/23 Rajesh Connolly MD [address] [place] [address] [address] [place] [address] Referring Physician Internal Medicine 02/21/19 Nikki Cuellar MD [address] [facility] [address] [place] [address] Radiation Oncologist Radiation Oncology 06/26/24 Ling Goldsmith MD [facility] [address] [place] [address] Surgeon Surgical Oncology 06/26/24 Fa'Felipe alcocer MD [address] [facility] [address] [place] [address] Consulting Physician Medical Oncology 06/26/24 documented as of this encounter
--- OUTSIDE RECORDS SUMMARY | 2025-02-09 09:59 | XMS_ITS | Encounter Summary ---
Author Organization [facility] Address [address] [place] [address] Phone Care Team Providers Care Rate Manager Name Role Phone Nakita Falk MD Primary Care Provider [phone] Rajesh Connolly MD Unavailable [phone] Rajesh Connolly MD Primary Care Provider + [phone] Nikki Cuellar MD Unavailable Ling Goldsmith MD Unavailable [phone] Felipe Simeon MD Unavailable Encounter Details Date Type Department Care Team (Late st Contact Info) Description 03/08/2022 Orders Only [facility] Scanning, Provider Social History Tobacco Use Types Packs/Day Years Used Date Smoking Tobacco: Never Smokeless Tobacco: Never Comments:in college Alcohol Use Standard Drinks/Week Comments Yes 1 (1 standard drink = 0.6 oz pur e alcohol) Comments No Sex and Gender Information Value Date Recorded Sex Assigned at Not on file Legal Sex Female 7:40 PM FABRICATION AND 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 SUPERVISOR Gender Identity Female 02/20/2020 12:23 AM CDT Sexual Orientation Straight 07/08/2024 2: 34 PM CDT documented as of this encounter Plan of Treatment Not on file documented as of this encounter Procedures Procedure Name Priority Date/Time Associated Diagnosis Comments SCAN - RADIOLOGY/IMAGING 03/08/2022 documented in this encounter Results * SCAN - RADIOLOGY/IMAGING (03/08/2022) Anatomical Region Laterality Modality Other us Provider Scanning Edited Result - Final documented in this encounter Visit Diagnoses Not on filedocumented in this encounter Additional Health Concerns Infection Onset Date Last Indicated Resolved Time COVID: Suspected 07/06/2023 07/06/2023 07/06/2023 2:45 PM CDT Rhino/Enterovirus 07/06/2023 07/06/2023 07/13/2023 3:05 AM CDT COVID: Suspected 09/13/2023 09/14/2023 09/14/2023 3:05 AM FABRICATION AND ASSEMBLY SUPERVISOR COVID: Suspected 09/14/2023 09/14/2023 09/14/2023 4:33 PM FABRICATION AND ASSEMBLY SUPERVISOR COVID19 09/14/2023 09/14/2023 09/24/2023 3:05 AM FABRICATION AND ASSEMBLY SUPERVISOR COVID: Recovered Comment:Added based on recent COVID infection. 09/24/2023 10/23/2023 12/23/2023 3:06 AM C DT documented as of this encounter Care Teams Rate Manager Relationship Specialty Start Date End Date Nakita Falk MD [address] [place] [address] PCP - General 02/19/18 08/12/23 Rajesh Connolly MD [address] [place] [address] PCP - General Internal Medicine 08/13/23 Rajesh Connolly MD [address] [place] [address] Referring Physician Internal Medicine 02/21/19 Nikki Cuellar MD [address] [facility] [address] [place] [address] Radiation Oncologist Radiation Oncology 06/26/24 Ling Goldsmith MD [address] [place] [address] Surgeon Surgical Oncology 06/26/24 Fa'Felipe alcocer MD [address] [facility] [address] [place] [address] Consulting Physician Medical Oncology 06/26/24 documented as of this encounter
--- OUTSIDE RECORDS SUMMARY | 2025-02-09 09:59 | XMS_ITS | Encounter Summary ---
Author Organization [facility] Address [address] [place] [address] Phone Care Team Providers Care Cobbler Sole Name Role Phone Nakita Falk MD Primary Care Provider [phone] Rajesh Connolly MD Unavailable [phone] Rajesh Connolly MD Primary Care Provider + [phone] Nikki Cuellar MD Unavailable Ling Goldsmith MD Unavailable [phone] Felipe Simeon MD Unavailable Encounter Details Date Type Department Care Team (Late st Contact Info) Description 03/01/2022 Orders Only [facility] Scanning, Provider Social History Tobacco Use Types Packs/Day Years Used Date Smoking Tobacco: Never Smokeless Tobacco: Never Comments:in college Alcohol Use Standard Drinks/Week Comments Yes 1 (1 standard drink = 0.6 oz pur e alcohol) Comments No Sex and Gender Information Value Date Recorded Sex Assigned at Not on file Legal Sex Female 7:40 PM TAPE COATER Gender Identity Female 02/20/2020 12:23 AM CDT Sexual Orientation Straight 07/08/2024 2: 34 PM CDT documented as of this encounter Plan of Treatment Not on file documented as of this encounter Procedures Procedure Name Priority Date/Time Associated Diagnosis Comments SCAN - RADIOLOGY/IMAGING 03/01/2022 documented in this encounter Results * SCAN - RADIOLOGY/IMAGING (03/01/2022) Anatomical Region Laterality Modality Other us Provider Scanning Edited Result - Final documented in this encounter Visit Diagnoses Not on filedocumented in this encounter Additional Health Concerns Infection Onset Date Last Indicated Resolved Time COVID: Suspected 07/06/2023 07/06/2023 07/06/2023 2:45 PM CDT Rhino/Enterovirus 07/06/2023 07/06/2023 07/13/2023 3:05 AM CDT COVID: Suspected 09/13/2023 09/14/2023 09/14/2023 3:05 AM TAPE COATER COVID: Suspected 09/14/2023 09/14/2023 09/14/2023 4:33 PM TAPE COATER COVID19 09/14/2023 09/14/2023 09/24/2023 3:05 AM TAPE COATER COVID: Recovered Comment:Added based on recent COVID infection. 09/24/2023 10/23/2023 12/23/2023 3:06 AM C DT documented as of this encounter Care Teams Cobbler Sole Relationship Specialty Start Date End Date Nakita Falk MD [address] [place] [address] PCP - General 02/19/18 08/12/23 Rajesh Connolly MD [address] [place] [address] PCP - General Internal Medicine 08/13/23 Rajesh Connolly MD [address] [place] [address] Referring Physician Internal Medicine 02/21/19 Nikki Cuellar MD [address] [facility] [address] [place] [address] Radiation Oncologist Radiation Oncology 06/26/24 Ling Goldsmith MD [address] [place] [address] Surgeon Surgical Oncology 06/26/24 Fa'Felipe alcocer MD [address] [facility] [address] DIV [place] [address] Consulting Physician Medical Oncology 06/26/24 documented as of this encounter
--- OUTSIDE RECORDS SUMMARY | 2025-02-09 09:59 | XMS_ITS | Clinical Summary ---
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 04/23/20 19 Active acetaminophen (TYLENOL) 500 mg tabletIndications: Pain Take 2 tablets (1,000 mg total) by mouth every 6 (six) hours as needed for pain Active albuterol HFA (PROVENTIL HFA,VENTOLIN HFA,PROAIR HFA) 90 mcg/actuation inhalerIndications :Chronic Obstructive Pulmonary Disease Inhale 2 puffs every 6 (six) hours as needed for wheezing 1 each 4 11/09/19 23 Active aspirin 325 mg tabletIndications: prevention Take 1 tablet (325 mg total) by mouth once a week Active ketorolac (TORADOL) 10 mg tabletIndications: Migraine without aura and without status migrainosus, not intractable Take 1 tab po q 6 hr prn migraine. Do not exceed 3 in 24 hrs, do not take more than 2 consecutive days. 20 tablet 1 05/07/20 23 Active promethazine (PHENERGAN) 25 mg tabletIndications: Migraine without aura and without status migrainosus, not intractable Take 1 tablet (25 mg total) by mouth every 6 (six) hours as needed for nausea or vomiting 60 tablet 08/13/20 23 Active SUMAtriptan succinate 4 mg/0.5 mL cartridgeIndicatio ns:Migraine Inject 4mg SC at onset of headache. May repeat after 1 hr if needed. Max 12mg in 24 hrs. 12 mL 3 08/13/20 23 Active montelukast (SINGULAIR) 10 mg tabletIndications: Seasonal Allergic Rhinitis Take 1 tablet (10 mg total) by mouth every evening 09/15/20 23 Active losartan-hydroCHLO ROthiazide (HYZAAR) 100-12.5 mg per tabletIndications: hypertension Take 1 tablet by mouth every morning 11/14/19 24 Active traZODone (DESYREL) 50 mg tablet TAKE 1 TABLET BY MOUTH NIGHTLY NEEDED FOR SLEEP 90 tablet 1 03/24/20 24 Active Additional Information Patient not taking.Informant: Self, Reported on 01/20/2025 cannabidiol, CBD, (medical cannabis) each Take 1 Dose by mouth as needed (migraines) Active fish oil-dha-epa 1,200-144-216 mg capsule Take by mouth Active anastrozole (ARIMIDEX) 1 mg tablet TAKE 1 TABLET BY MOUTH EVERY DAY 90 tablet 1 07/08/20 24 Active azithromycin (ZITHROMAX) 250 mg tablet Take 1 tablet (250 mg total) by mouth daily Active propranolol LA (INDERAL LA) 80 mg 24 hr capsuleIndications :Migraine without aura and without status migrainosus, not intractable Take 1 capsule (80 mg total) by mouth daily 90 capsule 3 08/18/20 24 Active rizatriptan 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 Do not exceed 30 mg in 24 hours. 9 tablet 11 08/18/20 24 Active topiramate (TOPAMAX) 50 mg tablet Take 1 tab by mouth at bedtime 90 tablet 3 08/25/20 24 Active cholecalciferol (VITAMIN D-3) 50,000 unit capsule TAKE 1 CAPSULE BY MOUTH ONE TIME PER WEEK 12 capsule 1 09/08/[address] (CYMBALTA) 60 mg capsuleIndications :Migraine without aura and without status migrainosus, not intractable TAKE 1 CAPSULE BY MOUTH EVERY DAY 90 capsule 3 09/17/20 24 Active traZODone (DESYREL) 100 mg tabletIndications: insomnia associated with depression Take 1 tablet (100 mg total) by mouth nightly 30 tablet 11 10/13/19 25 026 Active amoxicillin 500 mg capsule 1 tablet/capsule (500 mg total) 11/06/19 25 Active cetirizine (ZyrTEC) 10 mg tablet Take 1 tablet (10 mg total) by mouth daily 08/15/20 24 Active benzonatate (TESSALON) 100 mg capsule 1 capsule (100 mg total) 08/18/20 24 Active guaiFENesin-codein e (GUAITUSS AC) liquid 100-10 mg/5 mL TAKE 10 ML BY MOUTH EVERY 4 TO 6 HOURS NEEDED FOR COUGH FOR 5 DAYS 09/18/20 24 Active doxycycline monohydrate (MONODOX) 100 mg capsule 1 capsule (100 mg total) 09/18/20 24 Active fluticasone propionate (FLONASE) 50 mcg/actuation nasal spray SPRAY 1-2 SPRAYS INTO EACH NOSTRIL ONCE DAILY NEEDED 09/07/20 24 Active methylPREDNISolone (MEDROL DOSEPACK) 4 mg Dosepack 1 tablet (4 mg total) 08/15/20 24 Active predniSONE (DELTASONE) 10 mg tablet 1 tablet (10 mg) 08/27/20 24 Active Xeljanz XR 11 mg TAKE 1 TABLET BY MOUTH 1 TIME A DAY EVERY MORNING. 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 Assessment & Plan (11/09/2022 1:02 PM PATIENT SERVICES REP): Isabella 1 positive anti synthetase syndrome currently [...] an abnormal chest x-ray as early as 2018. In the absence of systemic inflammation, improvement [...] 09/16/2020 Assessment & Plan (09/16/2020 12:34 PM PATIENT SERVICES REP): This is a new problem for her. At this time, I recommend simply extension exercises but I have discussed with her percutaneous fasciotomy through Dr. Rosas should this be progressive. We discussed the genetic nature of this. Carpal tunnel syndrome, bilateral 10/22/2019 Overview (10/22/2019): Added automatically from request for surgery [id number] Shoulder pain, right 05/31/2019 Assessment & Plan [...] available. Assessment & Plan (11/09/2022 1:01 PM PATIENT SERVICES REP): No articular symptoms at this time and [...] months. Assessment & Plan (09/16/2020 12:34 PM PATIENT SERVICES REP): Well controlled synovitis today. The Dupuytren's contracture is relatively rapidly progressing as was not apparent at last [id number] visit which was almost a year ago. [...] indicated. Assessment & Plan (10/16/2019 12:03 PM PATIENT SERVICES REP): Longstanding seronegative rheumatoid arthritis presents today with [...] She had a recent visit with her railroad surveyor that I believe feels she has a [...] methotrexate. Assessment & Plan (10/28/2018 10:26 AM PATIENT SERVICES REP): 58-year-old white female with seronegative rheumatoid arthritis [...] 6 months Common migraine without aura 01/18/2010 Encounters Date Type Department Care Team Description 01/20/2025 10:38 AM CDT - 01/20/2025 11:59 PM CDT Hospital Encounter [facility] - Breast Imaging [address] [place] [id number] Malignant neoplasm of upper-outer quadrant of left breast in female, estrogen receptor positive (HCC) Discharge Disposition: Discharge to home or self care 01/20/2025 10:30 AM CDT Office Visit [facility] [address] [place] [phone] Ling Goldsmith MD Malignant neoplasm of upper-outer quadrant of left breast in female, estrogen receptor positive (HCC) (Primary Dx) 11/13/2024 10:30 AM PATIENT SERVICES REP Office Visit [facility] [address] [place] [phone] Felipe Simeon MD Malignant neoplasm of upper-outer quadrant of left breast in female, estrogen receptor positive (HCC) (Primary Dx); Osteopenia, unspecified location 11/13/2024 9:45 AM PATIENT SERVICES REP Lab [facility] - Lab Collection [address] [place] [address] Malignant neoplasm of upper-outer quadrant of left breast in female, estrogen receptor positive (HCC) 11/13/2024 9:30 AM PATIENT SERVICES REP Lab [facility] Lab [address] [place] [address] Malignant neoplasm of upper-outer quadrant of left breast in female, estrogen receptor positive (HCC) from Last 3 Months Immunizations Immunization Administration Dates Next Due Influenza, Quadrivalent, Iliana l Culture-based MDCK, Preservative Free, Antibiotic Free, Intramuscular 09/22/2021,07/23/2019 Influenza, Quadrivalent, Spl it, Preservative Free, Intramuscular 07/23/2020 PPD TEST 12/28/2009 Pneumococcal Conjugate PCV 13 05/19/2020 Pneumococcal Polysaccharide PPV23 12/07/2020 Tdap 01/14/2015 Surgical History Surgery Date Site/Laterality Comments COLONOSCOPY 7-8 years ago ENDOMETRIAL ABLATION 15 years ago BREAST BIOPSY 10/08/2023 - 10/07/2024 Left CARPAL TUNNEL RELEASE Bilateral Medical History Medical History Date Comments Other specified disorders of rotator cuff syndrome of shoulder and allied disorders Subacromial Bursitis On The Right - (Added by TW Conv) Other specified anxiety disorders Depression with anxiety - (Added by TW Conv) Hypertension Hyperlipidemia Depression rheumatoid arthritis Breast cancer (HCC) Family History Medical History Relation Name Comments Arthritis Father Family history of arthritis - (Added by TW Conv) Osteoarthritis Father Family histor y of osteoarthritis - (Added by TW Conv) Prostate cancer Father Lung cancer Maternal Grandmother Lung cancer Mother's Sister Hypertension Other 1 Hypertension - (Added by TW Conv) Diabetes Other 2 Diabetes Mellit us - brother and father and father's side (Added by TW Conv) Lung cancer Other 3 Malignant Neopl asm Bronchus and Lung - MGM (Added by TW Conv) Migraines Other 4 Common Migraine (Without Aura) - MGM and mom and cousin (Added by TW Conv) Rheum arthritis Other 5 Family histo ry of rheumatoid arthritis - PGM (Added by TW Conv) Rheum arthritis Other 6 Family histo ry of rheumatoid arthritis - PGM (Added by TW Conv) Anesthesia problems Neg Hx Relation Name Status Comments Father Maternal Grandmother Mother's Sister Other 1 Other 2 Other 3 Other 4 Other 5 Other 6 Social History Tobacco Use Types Packs/Day Years Used Date Smoking Tobacco: Former Cigarettes Smokeless Tobacco: Never Tobacco Cessation:Counseling Given: Not Answered Comments:in college Alcohol Use Standard Drinks/Week Comments [...] on file Legal Sex Female 7:40 PM PATIENT SERVICES REP Gender Identity Female 02/20/2020 12:23 AM CDT Sexual Orientation Straight 07/08/2024 2: 34 PM CDT Obstetrics History Para Term AB IAB SAB Ectopic Multiple Livin g Live Births 3 2 Date Outcome GA Total Labor Labor/2nd/3rd Weight Sex Type Anes PTL Kimberley A1 A5 Name Clin Para Para Last Filed Vital Signs Vital Sign Reading Time Taken Comments Blood Pressure 114/80 11/13/2024 10:04 AM PATIENT SERVICES REP Pulse 73 11/13/2024 10:04 AM PATIENT SERVICES REP Temperature 36.3 C (97.4 F) 11/13/2024 10:04 AM PATIENT SERVICES REP Respiratory Rate 18 11/13/2024 10:04 AM PATIENT SERVICES REP Oxygen Saturation 97% 11/13/2024 10:04 AM PATIENT SERVICES REP Inhaled Oxygen Concentration - - Weight 94.1 kg (207 lb 6.4 oz) 01/20/2025 10:29 AM CDT Height 172.7 cm (5' 8 ) 01/20/2025 10:29 AM CDT Body Mass Index 31.54 01/20/2025 10:29 AM CDT Plan of Treatment Health Maintenance Due Date Last Done Comments Cervical Cancer Screening 1960 Colon Cancer Screening-Colonoscopy 1960 Depression Screening 1960 Hepatitis C Screening 1960 Hepatitis B Screening 1978 Regular Well Visit/Exam 18-64 1978 Zoster Vaccine (1 of 2) 1979 Covid-19 Vaccine (4 - season) 2024 08/26/2021, 11/20/2020, 10/23/2020 DTaP/Tdap/Td Vaccine (2 - Td or Tdap) 01/14/202506/2015 Influenza Vaccine (Season Ended) 2025 09/22/2021, 07/23/2020, 07/23/2019 Pneumococcal vaccine <65 (3 of 3 - PPSV23, PCV20 or PCV21) 12/07/2025 12/07/2020, 05/19/2020 Breast Cancer Screening-Mammogram 01/20/2026 025 Medical Devices Implanted Type Area Educational Institution President Device Identifier Shelf Expiration Date Model / Serial / Lot [employer] Marker Tissue Needle Delivery Spiral Capped Seed Radiopaque Oxygen Equipment Technician Stainless Steel Low Nickel [employer] [id number] - [id number] Implanted:Qty: 1 on 05/23/2024 by Dot Santamaria MD at [facility] Left: Breast [employer] [id number] 06/07/2027 [id number] Procedures Procedure Name Priority Date/Time Associated Diagnosis Comments DIAGNOSTIC MAMMOGRAM BILATERAL W JAE Schedule Routine, Read Routine (OP Routine) 01/20/2025 11:30 AM CDT Malignant neoplasm of upper-outer quadrant of left breast in female, estrogen receptor positive (HCC) EGFR Routine 11/13/2024 9:30 AM PATIENT SERVICES REP Malignant neoplasm of upper-outer quadrant of left breast in female, estrogen receptor positive (HCC) DIFFERENTIAL AUTO Routine 11/13/2024 9:3 0 AM PATIENT SERVICES REP Malignant neoplasm of upper-outer quadrant of left breast in female, estrogen receptor positive (HCC) VITAMIN D 25 HYDROXY Routine 11/13/2024 9:30 AM PATIENT SERVICES REP Malignant neoplasm of upper-outer quadrant of left breast in female, estrogen receptor positive (HCC) CBC WITH AUTO DIFFERENTIAL Routine 11/13/2024 9:30 AM PATIENT SERVICES REP Malignant neoplasm of upper-outer quadrant of left breast in female, estrogen receptor positive (HCC) COMPREHENSIVE METABOLIC PANEL Routine 11/13/2024 9:30 AM PATIENT SERVICES REP Malignant neoplasm of upper-outer quadrant of left breast in female, estrogen receptor positive (HCC) from Last 3 Months Results * Diagnostic Mammogram Bilateral W Jae (01/20/2025 11:30 AM CDT) Anatomical Region Laterality Modality Breast Bilateral Mammography 01/20/2025 12:1 3 PM CDT Impressions 01/20/2025 12:13 PM CDT 1. Baseline benign postoperative changes of left BCT. 2. No mammographic evidence of malignancy OVERALL FINAL ASSESSMENT: BI-RADS Category 2: Benign. RECOMMENDATION: 1. Annual screening mammography is recommended. 2. Breast MRI should also be considered for supplemental imaging surveillance given personal history of breast cancer and/or dense breast tissue. The radiology attending physician has personally reviewed this study, and had reviewed and/or edited this written report and agrees with it. Electronically signed by: Korin Guaman MD Narrative 01/20/2025 12:13 PM CDT EXAMINATION: BILATERAL DIGITAL DIAGNOSTIC MAMMOGRAM INCLUDING CAD AND BILATERAL DIGITAL BREAST TOMOSYNTHESIS HISTORY: 64-year-old female with history of left partial mastectomy and lymph node biopsy for invasive ductal cancer on 05/29/2024. 6 month follow-up. COMPARISON: 05/23/2024 mammogram TECHNIQUE: Full field digital mammographic views of BOTH breasts were performed, including computer aided detection (CAD) and BILATERAL digital breast tomosynthesis (DBT). BREAST PARENCHYMAL COMPOSITION: There are scattered areas of fibroglandular density. MAMMOGRAM FINDINGS: Benign changes of breast conservation therapy in the left upper outer breast, which represents the patient's baseline post surgery exam. There is no new suspicious mass, calcification or abnormality seen in EITHER breast. Procedure Note Korin Guaman MD - 01/20/2025 EXAMINATION: BILATERAL DIGITAL DIAGNOSTIC MAMMOGRAM INCLUDING CAD AND BILATERAL DIGITAL BREAST TOMOSYNTHESIS HISTORY: 64-year-old female with history of left partial mastectomy and lymph node biopsy for invasive ductal cancer on 05/29/2024. 6 month follow-up. COMPARISON: 05/23/2024 mammogram TECHNIQUE: Full field digital mammographic views of BOTH breasts were performed, including computer aided detection (CAD) and BILATERAL digital breast tomosynthesis (DBT). BREAST PARENCHYMAL COMPOSITION: There are scattered areas of fibroglandular density. MAMMOGRAM FINDINGS: Benign changes of breast conservation therapy in the left upper outer breast, which represents the patient's baseline post surgery exam. There is no new suspicious mass, calcification or abnormality seen in EITHER breast. IMPRESSION: 1. Baseline benign postoperative changes of left BCT. 2. No mammographic evidence of malignancy OVERALL FINAL ASSESSMENT: BI-RADS Category 2: Benign. RECOMMENDATION: 1. Annual screening mammography is recommended. 2. Breast MRI should also be considered for supplemental imaging surveillance given personal history of breast cancer and/or dense breast tissue. The radiology attending physician has personally reviewed this study, and had reviewed and/or edited this written report and agrees with it. Electronically signed by: Korin Guaman MD Ling Goldmsith MD IMG MAMMO PROCEDURES Fi nal Result * eGFR (11/13/2024 9:30 AM PATIENT SERVICES REP) eGFR 70 >=60 mL/min/1. 73 m2 Comment: Interpretive Data Reference Interval Normal >/= 90 mL/min/1.73m2 Mildly decreased* 60 - 89 mL/min/1.73m2 Mildly to moderately decreased 45 - 59 mL/min/1.73m2 Moderately to severely decreased 30 - 44 mL/min/1.73m2 Severely decreased 15 - 29 mL/min/1.73m2 Kidney Failure < 15 mL/min/1.73m2 *Relative to young adult level Estimated glomerular filtration rate is determined by the 2020 CKD-EPI equation recommended by the National Kidney Foundation (A Unifying Approach to GFR Estimation: Recommendations of the NKF-ASK Task Force on Reassessing the Inclusion of Race in Diagnosing Kidney Disease, JASN 2020). The CKD-EPI equation should not be used for patients with unstable renal function and has not been validated in children and those over 70. Current interpretive data was last reviewed 2021. Blood 11/13/2024 9:30 AM PATIENT SERVICES REP 11/13/2024 9:35 AM PATIENT SERVICES REP us Felipe Simeon MD LAB BLOOD ORDERABLES Final Resul t [facility] [place] [address] * Differential, auto (11/13/2024 9:30 AM PATIENT SERVICES REP) Neutrophil abs 3.8 1.5 - 6.5 K/cumm Comment:Testing performed by : [facility], [address] [place] [phone] Lymphocyte abs 1.8 0.8 - 3.3 K/cumm [facility] Comment:Testing performed by : [facility], [address] [place] [phone] Monocyte abs 0.6 0.2 - 0.8 K/[facility]umm [facility] Comment:Testing performed by : [facility], [address] [place] [phone] Eosinophil abs 0.5 0.0 - 0.5 K/cumm [facility] Comment:Testing performed by : [facility], [address] [place] [phone] Basophil abs 0.1 0.0 - 0.1 K/cumm [facility] Comment:Testing performed by : [facility], [address] [place] [phone] Neutrophil pct 55.9 % [facility] Comment: Interpretive Data Percent cell count reference ranges are not reported, since discordance with absolute values may lead to misinterpretation of CBC data. Current Interpretive Data was last revised on 2018. Testing performed by: [facility], [address] [place] [phone] Lymphocyte pct 26.6 % [facility] Comment: Interpretive Data Percent cell count reference ranges are not reported, since discordance with absolute values may lead to misinterpretation of CBC data. Current Interpretive Data was last revised on 2018. Testing performed by: [facility], [address] [place] [phone] Monocyte pct 8.9 % [facility] Comment: Interpretive Data Percent cell count reference ranges are not reported, since discordance with absolute values may lead to misinterpretation of CBC data. Current Interpretive Data was last revised on 2018. Testing performed by: [facility], [address] [place] [phone] Eosinophil pct 7.7 % [facility] Comment: Interpretive Data Percent cell count reference ranges are not reported, since discordance with absolute values may lead to misinterpretation of CBC data. Current Interpretive Data was last revised on 2018. Testing performed by: [facility], [address] [place] [phone] Basophil pct 0.9 % [facility] Comment: Interpretive Data Percent cell count reference ranges are not reported, since discordance with absolute values may lead to misinterpretation of CBC data. Current Interpretive Data was last revised on 2018. Testing performed by: [facility], [address] [place] [phone] Blood 11/13/2024 9:30 AM PATIENT SERVICES REP 11/13/2024 9:36 AM PATIENT SERVICES REP us Felipe Simeon MD LAB BLOOD ORDERABLES Final Resul t [facility] [place] [address] * CBC with auto differential (11/13/2024 9:30 AM PATIENT SERVICES REP) WBC 6.7 3.8 - 9.9 K/cumm Comment:Testing performed by : [facility], [address] [place] [phone] Hgb 12.8 11.9 - 15.5 g/dL [facility] Comment:Testing performed by : [facility], [address] [place] [address] Hct 37.9 35.6 - 45.5 % [facility] Comment:Testing performed by : [facility], [address] [place] [address] Plt 238 150 - 400 K/cumm [facility] Comment:Testing performed by : [facility], [address] [place] [address] MPV 9.6 6.8 - 10.4 fL [facility] Comment:Testing performed by : [facility], [address] [place], [place] [phone] RBC 4.02 3.90 - 5.20 M/cumm [facility] Comment:Testing performed by : [facility], [address] [place], [place] [phone] MCV 94.4 81.3 - 96.4 fL [facility] Comment:Testing performed by : [facility], [address] [place] [address] MCH 32.0 27.1 - 33.3 pg [facility] Comment:Testing performed by : [facility], [address] [place] [address] MCHC 33.9 32.3 - 35.7 g/dL [facility] Comment:Testing performed by : [facility], [address] [place] [address] RDW CV 13.4 11.1 - 14.9 % [facility] Comment:Testing performed by : [facility], [address] [place] [address] NRBC abs 0.00 0.00 - 0.01 K/cumm [facility] Comment:Testing performed by : [facility], [address] [place] [address] Blood 11/13/2024 9:30 AM PATIENT SERVICES REP 11/13/2024 9:36 AM PATIENT SERVICES REP us Felipeelizabeth Jurado'leodan SCHNEIDER LAB BLOOD ORDERABLES Final Resul t [facility] [place] [address] * Vitamin D 25 hydroxy (11/13/2024 9:30 AM PATIENT SERVICES REP) Vitamin D 25-OH 47 30 - 80 ng/mL Blood 11/13/2024 9:30 AM PATIENT SERVICES REP 11/13/2024 9:35 AM PATIENT SERVICES REP us Felipeelizabeth Simeon MD LAB BLOOD ORDERABLES Final Resul t [facility] [place] [address] * Comprehensive metabolic panel (11/13/2024 9:30 AM PATIENT SERVICES REP) Pathologist [facility] Sodium 140 135 - 145 mmol/L Potassium, pl 3.9 3.3 - 4.9 mmol/L [facility] Chloride 104 97 - 110 mmol/L [facility] CO2 32 22 - 32 mmol/L [facility] Anion gap 4 2 - 15 mmol/L [facility] BUN 11 6 - 25 mg/dL [facility] Creatinine 0.91 0.60 - 1.10 mg/dL [facility] Glucose 96 70 - 199 mg/dL [facility] Comment: Interpretive Data Fasting glucose >/= 126 mg/dl is diagnostic for diabetes. Fasting is defined as no caloric intake for at least 8 hours. Fasting glucose between 100 mg/dl to 125 mg/dl is diagnostic of prediabetes. In a patient with classic symptoms of hyperglycemia or hyperglycemic crisis, a random glucose >/= 200 mg/dl is diagnostic for diabetes. In the absence of unequivocal hyperglycemia, results should be confirmed by repeat testing. The classification and Diagnosis of Diabetes Diabetes Care 2021; 46: S19-S40. Current interpretive data was last revised 2022. Calcium 9.4 8.5 - 10.3 mg/dL [facility] Bilirubin, total 0.3 0.1 - 1.2 mg/dL [facility] Protein, pl 6.8 6.5 - 8.5 g/dL [facility] Albumin 4.0 3.5 - 5.0 g/dL [facility] Alk phos 64 40 - 130 Units/L [facility] ALT 17 7 - 45 Units/L [facility] AST 28 10 - 45 Units/L [facility] Blood 11/13/2024 9:30 AM PATIENT SERVICES REP 11/13/2024 9:35 AM PATIENT SERVICES REP us Felipe Simeon MD LAB BLOOD ORDERABLES Final Resul t [facility] [place] [address] from Last 3 Months Insurance [place] Advance Directives For more information, please contact: [phone] Documents on File Type Date Recorded 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 Advance Directives and Hu g Will 05/29/2024 7:19 AM Care Teams 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
--- OUTSIDE RECORDS SUMMARY | 2025-02-09 09:59 | XMS_ITS | Referral Summary ---
Author Organization [facility] Address [address] [place] [address] Care Team Providers Care Flight Simulator Teacher Name Role Phone Rajesh Connolly MD Unavailable [phone] Rajesh Connolly MD Primary Care Provider [phone] Nikki Cuellar MD Unavailable Ling Goldsmith MD Unavailable [phone] Felipe Simeon MD Unavailable Encounters Date Type Department Care Team Description 01/20/2025 10:30 AM CDT Office Visit [facility] Surgery [address] [place] [address] Floor 8 [place] [address] Ling Goldsmith MD Malignant neoplasm of upper-outer quadrant of left breast in female, estrogen receptor positive (HCC) (Primary Dx) 01/20/2025 10:38 AM CDT - 01/20/2025 11:59 PM CDT Hospital Encounter [facility] - Breast Imaging [address] [place] [address] Floor 8 [place] [address] Malignant neoplasm of upper-outer quadrant of left breast in female, estrogen receptor positive (HCC) Discharge Disposition: Discharge to home or self care 11/13/2024 9:45 AM LOAN REPRESENTATIVE Lab [facility] - Lab Collection [address] [place], [place] [address] Floor 5 [place] [address] Malignant neoplasm of upper-outer quadrant of left breast in female, estrogen receptor positive (HCC) 11/13/2024 10:30 AM LOAN REPRESENTATIVE Office Visit [facility] Oncology [facility] Floor 8 [place] [id number] Felipe Simeon MD Malignant neoplasm of upper-outer quadrant of left breast in female, estrogen receptor positive (HCC) (Primary Dx); Osteopenia, unspecified location 11/13/2024 9:30 AM LOAN REPRESENTATIVE Lab [facility] Oncology Lab [facility] Floor 5 [place] [address] Malignant neoplasm of upper-outer quadrant of left breast in female, estrogen receptor positive (HCC) from Last 3 Months Allergies Active Allergy Reactions Criticality Noted Date [...] 90 capsule 3 08/18/20 24 Active rizatriptan NEEDLE PUNCH MACHINE OPERATOR (MAXALT-NEEDLE PUNCH MACHINE OPERATOR) 10 mg disintegrating tabletIndications: Migraine [...] by mouth nightly 30 tablet 11 10/13/19 026 Active amoxicillin 500 mg capsule 1 [...] from 05/29/2024:Stage IA(pT1a, pN0(sn), cM0, G1, ER+, [place]+, HER2-) - Signed by Nikki Cuellar MD on 06/26/2024 Cough due to RYLEE inhibitor 05/16/2023 Assessment & Plan (05/16/2023 10:35 AM CDT): Resolved with discontinuation of lisinopril at last visit Foot pain, right 05/16/2023 Subacute cough 11/09/2022 Assessment & Plan (11/09/2022 1:03 PM LOAN REPRESENTATIVE): This may represent a postinfectious cough but [...] echocardiogram. Assessment & Plan (11/09/2022 1:02 PM LOAN REPRESENTATIVE): Isabella 1 positive anti synthetase syndrome currently [...] 09/16/2020 Assessment & Plan (09/16/2020 12:34 PM LOAN REPRESENTATIVE): This is a new problem for her. At this time, I recommend simply extension exercises but I have discussed with her percutaneous fasciotomy through Dr. Rosas should this be progressive. We discussed the genetic nature of this. Carpal tunnel syndrome, bilateral 10/22/2019 Overview (10/22/2019): Added automatically from request for surgery [id number] Shoulder pain, right 05/31/2019 Assessment & Plan [...] available. Assessment & Plan (11/09/2022 1:01 PM LOAN REPRESENTATIVE): No articular symptoms at this time and I feel this is likely part of her anti synthetase syndrome Assessment & Plan (04/21/2021 1:03 PM CDT): Clinically we continue to suspect that this is truly a polyarticular psoriatic arthritis as Xeljanlidia has controlled both rash and articular symptoms. She needs monitoring laboratory tests of CBC to check for blood count alteration and CMP to assess hepatic and renal function as well as repeat latent tuberculosis testing. She has had an outstanding response and will otherwise simply follow up with me in 6 months. Assessment & Plan (09/16/2020 12:34 PM LOAN REPRESENTATIVE): Well controlled synovitis today. The Dupuytren's contracture is relatively rapidly progressing as was not apparent at last [id number] visit which was almost a year ago. [...] indicated. Assessment & Plan (10/16/2019 12:03 PM LOAN REPRESENTATIVE): Longstanding seronegative rheumatoid arthritis presents today with [...] She had a recent visit with her supervisor airplane flight attendant that I believe feels she has a [...] methotrexate. Assessment & Plan (10/28/2018 10:26 AM LOAN REPRESENTATIVE): 58-year-old white female with seronegative rheumatoid arthritis [...] 6 months Common migraine without aura 01/18/2010 Immunizations Immunization Administration Dates Next Due Influenza, Quadrivalent, Iliana l Culture-based MDCK, Preservative Free, Antibiotic Free, Intramuscular 09/22/2021,07/23/2019 Influenza, Quadrivalent, Spl it, Preservative Free, Intramuscular 07/23/2020 PPD TEST 12/28/2009 Pneumococcal Conjugate PCV 13 05/19/2020 Pneumococcal Polysaccharide PPV23 12/07/2020 Tdap 01/14/2015 Social History Tobacco Use Types Packs/Day Years [...] on file Legal Sex Female 7:40 PM LOAN REPRESENTATIVE Gender Identity Female 02/20/2020 12:23 AM CDT Sexual Orientation Straight 07/08/2024 2: 34 PM CDT Last Filed Vital Signs Vital Sign Reading Time Taken Comments Blood Pressure 114/80 11/13/2024 10:04 AM LOAN REPRESENTATIVE Pulse 73 11/13/2024 10:04 AM LOAN REPRESENTATIVE Temperature 36.3 C (97.4 F) 11/13/2024 10:04 AM LOAN REPRESENTATIVE Respiratory Rate 18 11/13/2024 10:04 AM LOAN REPRESENTATIVE Oxygen Saturation 97% 11/13/2024 10:04 AM LOAN REPRESENTATIVE Inhaled Oxygen Concentration - - Weight 94.1 kg (207 lb 6.4 oz) 01/20/2025 10:29 AM CDT Height 172.7 cm (5' 8 ) 01/20/2025 10:29 AM CDT Body Mass Index 31.54 01/20/2025 10:29 AM CDT Plan of Treatment Not on file Medical Devices Implanted Type Area Curator Of Manuscripts Device Identifier Shelf Expiration Date Model / Serial / Lot [employer] Marker Tissue Needle Delivery Spiral Capped Seed Radiopaque Senior Care Stainless Steel Low Nickel Sentimag [id number] - [id number] Implanted:Qty: 1 on 05/23/2024 by oDt Santamaria MD at [facility] Left: Breast Odilo [id number] 06/07/2027 [id number] Procedures Procedure Name Priority Date/Time Associated Diagnosis Comments DIAGNOSTIC MAMMOGRAM BILATERAL W JAE Schedule Routine, Read Routine (OP Routine) 01/20/2025 11:30 AM CDT Malignant neoplasm of upper-outer quadrant of left breast in female, estrogen receptor positive (HCC) EGFR Routine 11/13/2024 9:30 AM LOAN REPRESENTATIVE Malignant neoplasm of upper-outer quadrant of left breast in female, estrogen receptor positive (HCC) DIFFERENTIAL AUTO Routine 11/13/2024 9:3 0 AM LOAN REPRESENTATIVE Malignant neoplasm of upper-outer quadrant of left breast in female, estrogen receptor positive (HCC) VITAMIN D 25 HYDROXY Routine 11/13/2024 9:30 AM LOAN REPRESENTATIVE Malignant neoplasm of upper-outer quadrant of left breast in female, estrogen receptor positive (HCC) CBC WITH AUTO DIFFERENTIAL Routine 11/13/2024 9:30 AM LOAN REPRESENTATIVE Malignant neoplasm of upper-outer quadrant of left breast in female, estrogen receptor positive (HCC) COMPREHENSIVE METABOLIC PANEL Routine 11/13/2024 9:30 AM LOAN REPRESENTATIVE Malignant neoplasm of upper-outer quadrant of left [...] it. Electronically signed by: Korin Guaman MD us Ling Goldsmith MD IMG MAMMO PROCEDURES Fi nal Result * eGFR (11/13/2024 9:30 AM LOAN REPRESENTATIVE) eGFR 70 >=60 mL/min/1. 73 m2 Comment: [...] last reviewed 2021. Blood 11/13/2024 9:30 AM LOAN REPRESENTATIVE 11/13/2024 9:35 AM LOAN REPRESENTATIVE Felipe Simeon MD LAB BLOOD ORDERABLES Final Resul t [facility] Department [place] [address] * Differential, auto (11/13/2024 9:30 AM LOAN REPRESENTATIVE) Neutrophil abs 3.8 1.5 - 6.5 K/cumm Comment:Testing performed by : [facility], [address] [place] [phone] Lymphocyte abs 1.8 0.8 - 3.3 K/cumm [facility] Comment:Testing performed by : [facility], [address] [place] [phone] Monocyte abs 0.6 0.2 - 0.8 K/cumm [facility] Comment:Testing performed by : [facility], [address] [place] [phone] Eosinophil abs 0.5 0.0 - 0.5 K/cumm [facility] Comment:Testing performed by : [facility], [address] [place] [phone] Basophil abs 0.1 0.0 - 0.1 K/cumm [facility] Comment:Testing performed by : [facility], [address] [place] [phone] Neutrophil pct 55.9 % [facility] Comment: Interpretive Data Percent cell count reference ranges are not reported, since discordance with absolute values may lead to misinterpretation of CBC data. Current Interpretive Data was last revised on 2018. Testing performed by: [facility], [address] [place] [phone] Lymphocyte pct 26.6 % [facility] Comment: Interpretive Data Percent cell count reference ranges are not reported, since discordance with absolute values may lead to misinterpretation of CBC data. Current Interpretive Data was last revised on 2018. Testing performed by: [facility], [address] [place] [phone] Monocyte pct 8.9 % [facility] Comment: Interpretive Data Percent cell count reference ranges are not reported, since discordance with absolute values may lead to misinterpretation of CBC data. Current Interpretive Data was last revised on 2018. Testing performed by: [facility], [address] [place] [phone] Eosinophil pct 7.7 % [facility] Comment: Interpretive Data Percent cell count reference ranges are not reported, since discordance with absolute values may lead to misinterpretation of CBC data. Current Interpretive Data was last revised on 2018. Testing performed by: [facility], [address] [place] [address] Basophil pct 0.9 % [facility] Comment: Interpretive Data Percent cell count reference ranges are not reported, since discordance with absolute values may lead to misinterpretation of CBC data. Current Interpretive Data was last revised on 2018. Testing performed by: [facility], [address] [place] [address] Blood 11/13/2024 9:30 AM LOAN REPRESENTATIVE 11/13/2024 9:36 AM LOAN REPRESENTATIVE us Felipeelizabeth Simeon MD LAB BLOOD ORDERABLES Final Resul t [facility] Department [place] [address] * CBC with auto differential (11/13/2024 9:30 AM LOAN REPRESENTATIVE) WBC 6.7 3.8 - 9.9 K/cumm Comment:Testing performed by : [facility], [address] [place] [address] Hgb 12.8 11.9 - 15.5 g/dL [facility] Comment:Testing performed by : [facility], [address] [place] [address] Hct 37.9 35.6 - 45.5 % [facility] Comment:Testing performed by : [facility], [address] [place] [address] Plt 238 150 - 400 K/cumm [facility] Comment:Testing performed by : [facility], [address] [place], [place] [phone] MPV 9.6 6.8 - 10.4 fL [facility] Comment:Testing performed by : [facility], [address] [place], [place] [phone] RBC 4.02 3.90 - 5.20 M/cumm [facility] Comment:Testing performed by : [facility], [address] [place], [place] [phone] MCV 94.4 81.3 - 96.4 fL [facility] Comment:Testing performed by : [facility], [address] [place], [place] [phone] MCH 32.0 27.1 - 33.3 pg [facility] Comment:Testing performed by : [facility], [address] [place], [place] [phone] MCHC 33.9 32.3 - 35.7 g/dL [facility] Comment:Testing performed by : [facility], [address] [place], [place] [phone] RDW CV 13.4 11.1 - 14.9 % [facility] Comment:Testing performed by : [facility], [address] [place], [place] [phone] NRBC abs 0.00 0.00 - 0.01 K/cumm [facility] Comment:Testing performed by : [facility], [address] [place], [place] [phone] Blood 11/13/2024 9:30 AM LOAN REPRESENTATIVE 11/13/2024 9:36 AM LOAN REPRESENTATIVE us Felipeelizabeth Jurado'leodan SCHNEIDER LAB BLOOD ORDERABLES Final Resul t [facility] Department [place] [address] * Vitamin D 25 hydroxy (11/13/2024 9:30 AM LOAN REPRESENTATIVE) Vitamin D 25-OH 47 30 - 80 ng/mL Blood 11/13/2024 9:30 AM LOAN REPRESENTATIVE 11/13/2024 9:35 AM LOAN REPRESENTATIVE Felipe Simeon MD LAB BLOOD ORDERABLES Final Resul t [facility] Department [place] [address] * Comprehensive metabolic panel (11/13/2024 9:30 AM LOAN REPRESENTATIVE) Sodium 140 135 - 145 mmol/L Potassium, pl 3.9 3.3 - 4.9 mmol/L [facility] Chloride 104 97 - 110 mmol/L [facility] CO2 32 22 - 32 mmol/L [facility] Anion gap 4 2 - 15 mmol/L [facility] BUN 11 6 - 25 mg/dL [facility] Creatinine 0.91 0.60 - 1.10 mg/dL [facility] Glucose 96 70 - 199 mg/dL [facility] Comment: Interpretive Data Fasting glucose >/= [...] 2022. Calcium 9.4 8.5 - 10.3 mg/dL [facility] Bilirubin, total 0.3 0.1 - 1.2 mg/dL [facility] Protein, pl 6.8 6.5 - 8.5 g/dL [facility] Albumin 4.0 3.5 - 5.0 g/dL [facility] Alk phos 64 40 - 130 Units/L [facility] ALT 17 7 - 45 Units/L [facility] AST 28 10 - 45 Units/L [facility] Blood 11/13/2024 9:30 AM LOAN REPRESENTATIVE 11/13/2024 9:35 AM LOAN REPRESENTATIVE us Felipe Simeon MD LAB BLOOD ORDERABLES Final Resul t [facility] Department [place] [address] from Last 3 Months Insurance [employer] [place] [employer] [place] Advance Directives For more information, please contact: [phone] Documents on File Type Date Recorded Patient Proof Coins Inspector Expl anation Advance Directives and Hu lizama Will 05/29/2024 7:19 AM Care Teams Flight Simulator Teacher Relationship Specialty Start Date End Date Rajesh Connolly MD [address] [place] [address] PCP - General Internal Medicine 08/13/23 Rajesh Connolly MD Referring Physician Internal Medicine 02/21/19 Nikki Cuellar MD [address] [facility] # [address] LL [address] [place] [address] Radiation Oncologist Radiation Oncology 06/26/24 Ling Goldsmith MD [address] [place] [address] Surgeon Surgical Oncology 06/26/24 Felipe Simeon MD [address] [facility] [address] [place] [address] Consulting Physician Medical Oncology 06/26/24
[2025-02-09 10:06] LABS: RBC Urine 0-2 /hpf (0-2); WBC Urine 0-5 /hpf (0-3)
[2025-02-09 10:07] LABS: Bacteria Urine Trace /hpf; Squamous Epithelial Cell Urine Rare /hpf (Few)
[2025-02-09 10:12] LABS: Hemoglobin A1C 5.7 % (<5.7)
[2025-02-09 10:42] LABS: Alanine Aminotransferase 36 U/L (14-59); Albumin Level 3.7 g/dL (3.4-5.0); Alkaline Phosphatase 62 U/L (46-116); Anion Gap 8 mmol/L (4-12); Aspartate Amino Transferase 34 U/L (15-37); Bilirubin,Total 0.6 mg/dL (0.00-1.00); Blood Urea Nitrogen 17 mg/dL (7-18); Calcium 9.1 mg/dL (8.5-10.1); Carbon Dioxide 31 mmol/L (21-32); Chloride 103 mmol/L (98-108); Cholesterol 191 mg/dL (0-200); Creatine Kinase 372 U/L (26-192); Estimated Glomerular Filt Rate 54; Glucose 101 mg/dL (70-99); HDL Direct 65 mg/dL (40-60); LDL Cholesterol Calculated 107 mg/dL (<130); Osmolality Calculated 295 mOsm/kg (285-295); Potassium 3.9 mmol/L (3.5-5.1); Sodium 142 mmol/L (136-145); Total Protein 6.8 g/dL (6.4-8.2); Triglycerides 94 mg/dL (0-150)
== END 2025-02-09 09:21 | disposition home or self-care (01) ==
LOC: CHSLAB 09:24
PROVIDERS: PCP Internal Medicine; Visit Provider Internal Medicine
DX: E66.9 Obesity, unspecified (principal); N39.0 Urinary tract infection, site not specified; I10 Essential (primary) hypertension; E78.2 Mixed hyperlipidemia; R73.01 Impaired fasting glucose
CPT/HCPCS: 36415; 80053; 80061; 81001; 82550; 83036; 85025; 87086

== ENCOUNTER 2025-03-11 14:34 | Outpatient (CLI) | payer BC, SELFPAY ==
--- NOTE | ~2025-03-11 | XR_ITS ---
XR chest 2V 03/11/2025 14:53 Indication: Cough Procedure: 2 view chest Comparison: Comparison to multiple prior studies sequentially, with oldest reviewed study dated 08/09. Findings: Bibasilar airspace consolidation with peripheral coarse interstitial changes peripherally. No significant effusion. Shallow lung volumes. No pneumothorax. No acute osseous abnormality. Impression: 1: Coarse mixed interstitial and airspace disease with consolidation in the lung bases. No significan t change from 08/11/2024 allowing for differences of technique. Findings compatible with chronic inte rstitial fibrosis. Reviewed, dictated and finalized at location A. Impression: 1: Coarse mixed interstitial and airspace disease with consolidation in the cristal g bases. No significant change from 08/11/2024 allowing for differences of tech nique. Findings compatible with chronic interstitial fibrosis.
--- OUTSIDE RECORDS SUMMARY | 2025-03-11 14:48 | XMS_ITS ---
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 Assessment & Plan (11/09/2022 1:02 PM VEGETABLE SPECKER): Isabella 1 positive anti synthetase syndrome currently [...] 09/16/2020 Assessment & Plan (09/16/2020 12:34 PM VEGETABLE SPECKER): This is a new problem for her. At this time, I recommend simply extension exercises but I have discussed with her percutaneous fasciotomy through Dr. Rosas should this be progressive. We discussed the genetic nature of this. Carpal tunnel syndrome, bilateral 10/22/2019 Overview (10/22/2019): Added automatically from request for surgery [id number] Shoulder pain, right 05/31/2019 Assessment & Plan [...] available. Assessment & Plan (11/09/2022 1:01 PM VEGETABLE SPECKER): No articular symptoms at this time and [...] months. Assessment & Plan (09/16/2020 12:34 PM VEGETABLE SPECKER): Well controlled synovitis today. The Dupuytren's contracture is relatively rapidly progressing as was not apparent at last iogf-ci-uzdk visit which was almost a year ago. [...] indicated. Assessment & Plan (10/16/2019 12:03 PM VEGETABLE SPECKER): Longstanding seronegative rheumatoid arthritis presents today with [...] She had a recent visit with her construction or leak gang laborer that I believe feels she has a [...] methotrexate. Assessment & Plan (10/28/2018 10:26 AM VEGETABLE SPECKER): 58-year-old white female with seronegative rheumatoid arthritis [...]
--- OUTSIDE RECORDS SUMMARY | 2025-03-11 14:48 | XMS_ITS | Encounter Summary ---
Author Organization [facility] Address [address] [place] [address] Care Team Providers Care Garnett Machine Operator Name Role Phone Unavailable Primary Care Provider Unavailabl e Reason for Visit * Diagnostic Imaging (Routine) - Pending Review Specialty Diagnoses / Procedures Referred By Kirsten dodge Referred To Contact Procedures Breast Imaging Screening Outside Reference Transcribed Order, Provider Referral ID Status Reason Start Date Expiration Date V isits Requested Visits Authorized [id number] Pending Review 05/15/2024 06/14/2025 1 1 Encounter Details Date Type Department Care Team (Late st Contact Info) Description 08/18/2015 Hospital Encounter [facility] [address] [place] [address] Social History Tobacco Use Types Packs/Day Years [...] on file Legal Sex Female 7:40 PM PESTICIDE USE MEDICAL COORDINATOR Gender Identity Female 02/20/2020 12:23 AM [...] SCREENING OUTSIDE REFERENCE Routine 08/18/2015 12:00 AM PESTICIDE USE MEDICAL COORDINATOR documented in this encounter Results * Breast Imaging Screening Outside Reference (08/18/2015 12:00 AM PESTICIDE USE MEDICAL COORDINATOR) Impressions [facility] - 05/15/2024 12:42 PM CDT These images are for Reference purposes only and have not been reviewed by [facility] Radiology. There will be no report generated by a [facility] Radiologist. Narrative [facility] - 05/15/2024 [...] COVID: Suspected 09/13/2023 09/14/2023 09/14/2023 3:05 AM PESTICIDE USE MEDICAL COORDINATOR COVID: Suspected 09/14/2023 09/14/2023 09/14/2023 4:33 PM PESTICIDE USE MEDICAL COORDINATOR COVID19 09/14/2023 09/14/2023 09/24/2023 3:05 AM PESTICIDE USE MEDICAL COORDINATOR COVID: Recovered Comment:Added based on recent COVID infection. 09/24/2023 10/23/2023 12/23/2023 3:06 AM C DT documented as of this encounter
--- OUTSIDE RECORDS SUMMARY | 2025-03-11 14:48 | XMS_ITS | Encounter Summary ---
Author Organization [facility] Address [address] [place] [address] Phone Care Team Providers Care Tester Armature Or Fields Name Role Phone Nakita Falk MD Primary Care Provider [phone] Rajesh Connolly MD Unavailable [phone] Rajesh Connolly MD Primary Care Provider [phone] Nikki Cuellar MD Unavailable Ling Goldsmith MD Unavailable [phone] Felipe Simeon MD Unavailable Encounter Details Date [...] on file Legal Sex Female 7:40 PM ERECTION SHOP SUPERVISOR Gender Identity Female 02/20/2020 12:23 AM [...] COVID: Suspected 09/13/2023 09/14/2023 09/14/2023 3:05 AM ERECTION SHOP SUPERVISOR COVID: Suspected 09/14/2023 09/14/2023 09/14/2023 4:33 PM ERECTION SHOP SUPERVISOR COVID19 09/14/2023 09/14/2023 09/24/2023 3:05 AM ERECTION SHOP SUPERVISOR COVID: Recovered Comment:Added based on recent COVID infection. 09/24/2023 10/23/2023 12/23/2023 3:06 AM C DT documented as of this encounter Care Teams Tester Armature Or Fields Relationship Specialty Start Date End Date Nakita Falk MD [address] [place] [address] PCP - General 02/19/18 08/12/23 Rajesh Connolly MD [address] [place] [address] PCP - General Internal Medicine 08/13/23 Rajesh Connolly MD [address] [place] [address] Referring Physician Internal Medicine 02/21/19 Nikki Cuellar MD [address] [facility] # [address] [place] [address] Radiation Oncologist Radiation Oncology 06/26/24 Ling Goldsmith MD [address] [place] [address] Surgeon Surgical Oncology 06/26/24 Fa'Felipe alcocer MD [address] [facility] [address] DIV [place] [address] Consulting Physician Medical Oncology 06/26/24 documented as of this encounter
--- OUTSIDE RECORDS SUMMARY | 2025-03-11 14:48 | XMS_ITS | Encounter Summary ---
Author Organization [facility] Address [address] [place] [address] Phone Care Team Providers Care Product Engineer Name Role Phone Nakita Falk MD Primary Care Provider [phone] Rajesh Connolly MD Unavailable [phone] Rajesh Connolly MD Primary Care Provider + [phone] Nikki Cuellar MD Unavailable Ling Goldsmith MD Unavailable [phone] Felipe Simeon MD Unavailable Encounter Details Date [...] on file Legal Sex Female 7:40 PM FLIGHT SURVEYOR Gender Identity Female 02/20/2020 12:23 AM CDT [...] COVID: Suspected 09/13/2023 09/14/2023 09/14/2023 3:05 AM FLIGHT SURVEYOR COVID: Suspected 09/14/2023 09/14/2023 09/14/2023 4:33 PM FLIGHT SURVEYOR COVID19 09/14/2023 09/14/2023 09/24/2023 3:05 AM FLIGHT SURVEYOR COVID: Recovered Comment:Added based on recent COVID infection. 09/24/2023 10/23/2023 12/23/2023 3:06 AM C DT documented as of this encounter Care Teams Product Engineer Relationship Specialty Start Date End Date Nakita Falk MD [address] [place] [address] PCP - General 02/19/18 08/12/23 Rajesh Connolly MD [address] [place] [address] PCP - General Internal Medicine 08/13/23 Rajesh Connolly MD [address] [place] [address] Referring Physician Internal Medicine 02/21/19 Nikki Cuellar MD [address] [facility] [address] [place] [address] Radiation Oncologist Radiation Oncology 06/26/24 Ling Goldsmith MD [address] [place] [address] Surgeon Surgical Oncology 06/26/24 Fa'Felipe alcocer MD [address] [facility] [address] [place] [address] Consulting Physician Medical Oncology 06/26/24 documented as of this encounter
--- OUTSIDE RECORDS SUMMARY | 2025-03-11 14:48 | XMS_ITS | Clinical Summary ---
Author Organization [employer] [facility] [facility] Address [address] [place] [address] Care Team Providers Care Test Inspection Engineer Name Role Phone Rajesh Connolly MD Primary [...] by mouth daily. 3 Active rizatriptan (MAXALT HVAC OPERATIONS TECHNICIAN) 10 mg Tablet, Rapid Dissolve PLACE 1 [...] 4 Active fluticasone propionate (FLONASE) 50 mcg/spray [place], Suspension nasal inhaler SPRAY 1-2 SPRAYS INTO [...] Encounters Date Type Department Care Team Description 02/26/2025 External Device Data STL ABSTRACTION Provider, Abstract 02/26/2025 External Device Data STL ABSTRACTION Provider, Abstract 02/25/2025 External Device Data STL ABSTRACTION Provider, Abstract 02/24/2025 External Device Data STL ABSTRACTION Provider, Abstract 12/29/2024 11:00 AM CDT Office Visit [facility] [address] [facility] [address] [place] [address] Porsche Garrison MD Encounter for [...] on file Legal Sex Female 11:56 AM FOOD SERVICE CASHIER Gender Identity Not on file Sexual Orientation Not on file Last Filed Vital Signs Vital Sign Reading Time Taken Comments Blood Pressure 116/84 12/29/2024 10:59 AM CDT Pulse - - Temperature - - Respiratory Rate - - Oxygen Saturation - - Inhaled Oxygen Concentration - - Weight 95.2 kg (209 lb 12.8 oz) 025 10:59 AM CDT Height 175.3 cm (5' 9) 12/29/2024 10:5 9 AM CDT Body Mass Index 30.98 12/29/2024 10:59 AM CDT Plan of Treatment Upcoming Encounters Date Type Department Care Team (Late st Contact Info) Description 01/04/2026 11:00 AM CDT Office Visit [facility] OBGYN [address] [facility] [address] [address] [facility] [address] [place] [address] [place] [address] [facility] [address] [place] [address] Health Maintenance Due Date Last [...] 2:37 PM CDT) COMMENT (PAP): [facility] Comment: This order for age-based cervical cancer and STI screening follows ACOG guidelines(PB 168, 140, [id number]). See individual assays for performing site location. CLINICAL INFORMATION [facility] Comment:None given LAST MENSTRUAL PERIOD [facility] Comment:NONE GIVEN PREV PAP: [facility] Comment:NONE GIVEN PREV BX: [facility] Comment:NONE GIVEN SOURCE [facility] Comment:Endocervix ADEQUACY: [facility] Comment:SATISFACTORY FOR VIKTOR LUATION PAP INTERP [facility] Comment: Cytology Results: Negative for intraepithelial lesion or malignancy. Atrophic pattern; predominantly parabasal cells COMMENT (PAP TEST) [facility] [place] [facility] Comment: This Pap test has been evaluated with computer assisted technology. MOTOR SCOOTER REPAIRER: Mac Quinones Comment: BES, CT(ASCP) CT screening location: [place] [address] [place] [address] EXPLANATORY NOTE [employer] Quinones Comment: EXPLANATORY NOTE: The Pap is a [...] information. HPV E6/E7 Not Detected Not Detected [employer] Stacie Comment: Methodology: Alligator Trapper-Mediated Amplification This assay detects E6/E7 viral messenger RNA (mRNA) from 14 high-risk HPV types (16,18,31,33,35,39,45,51,52,56,58,59,66,68). Cervical sources are required for HPV testing. If a vaginal source from a patient who has had a total hysterectomy with removal of cervix was submitted, please contact the testing laboratory for alternative testing options. For additional information, please refer to http://education.NeuString/faq/KSL803u6 (This link if provided for information/ educational purposes only.) Test Performed at: [facility] [address] [address] Crystal Feliciano MD Genital SWAB OF ENDOCERVIX / Unknown 12/26/2023 2:37 PM CDT 12/27/2023 1:49 AM CDT Porsche Garrison MD PATHOLOGY/CYTOLOGY ORDERABLES F inal Result [facility] [phone] [place] [address] [phone] from Last 3 Months or Most Recently Relevant to Health Maintenance Insurance [facility] [employer] Care Teams Test Inspection Engineer Relationship Specialty Start Date End Date Rajesh Connolly MD [address] [place] [id number] PCP - General Internal Medicine 11/28/23
--- OUTSIDE RECORDS SUMMARY | 2025-03-11 14:48 | XMS_ITS | Clinical Summary ---
Author Organization [facility] Address [address] [facility] [place] [address] Care Team Providers Care Business Process Associate Name Role Phone Rajesh Connolly MD Unavailable [phone] Rajesh Connolly MD Primary Care Provider [phone] Nikki Cuellar MD Unavailable Ling Goldsmith MD Unavailable [phone] Felipe Simeon MD Unavailable Allergies Active Allergy Reactions Criticality Noted Date Comments Levofloxacin Other (See comments) High 11/09/2022 Passing out Brain Fog Light headed Sick Medications atorvastatin (LIPITOR) 10 mg tabletIndications :hyperlipidemia Take 1 tablet (10 mg total) by mouth nightly Patient takes only as needed. 019 Active acetaminophen (TYLENOL) 500 mg tabletIndications :Pain Take 2 tablets (1,000 mg total) by mouth every 6 (six) hours as needed for pain Active albuterol HFA (PROVENTIL HFA,VENTOLIN HFA,PROAIR HFA) 90 mcg/actuation inhalerIndication s:Chronic Obstructive Pulmonary Disease Inhale 2 puffs every 6 (six) hours as needed for wheezing 1 each 4 023 Active aspirin 325 mg tabletIndications :prevention Take 1 tablet (325 mg total) by mouth once a week Active ketorolac (TORADOL) 10 mg tabletIndications :Migraine without aura and without status migrainosus, not intractable Take 1 tab po q 6 hr prn migraine. Do not exceed 3 in 24 hrs, do not take more than 2 consecutive days. 20 tablet 1 023 Active promethazine (PHENERGAN) 25 mg tabletIndications :Migraine without aura and without status migrainosus, not intractable Take 1 tablet (25 mg total) by mouth every 6 (six) hours as needed for nausea or vomiting 60 tablet 023 Active SUMAtriptan succinate 4 mg/0.5 mL cartridgeIndicati ons:Migraine Inject 4mg SC at onset of headache. May repeat after 1 hr if needed. Max 12mg in 24 hrs. 12 mL 3 023 Active montelukast (SINGULAIR) 10 mg tabletIndications :Seasonal Allergic Rhinitis Take 1 tablet (10 mg total) by mouth every evening 023 Active losartan-hydroCHL OROthiazide (HYZAAR) 100-12.5 mg per tabletIndications :hypertension Take 1 tablet by mouth every morning 024 Active traZODone (DESYREL) 50 mg tablet TAKE 1 TABLET BY MOUTH NIGHTLY NEEDED FOR SLEEP 90 tablet 1 Active Additional Information Patient not taking.Informant: Self, Reported on 01/20/2025 cannabidiol, CBD, (medical cannabis) each Take 1 Dose by mouth as needed (migraines) Active fish oil-dha-epa 1,200-144-216 mg capsule Take by mouth Active anastrozole (ARIMIDEX) 1 mg tablet TAKE 1 TABLET BY MOUTH EVERY DAY 90 tablet 1 024 Active azithromycin (ZITHROMAX) 250 mg tablet Take 1 tablet (250 mg total) by mouth daily Active propranolol LA (INDERAL LA) 80 mg 24 hr capsuleIndication s:Migraine without aura and without status migrainosus, not intractable Take 1 capsule (80 mg total) by mouth daily 90 capsule 3 024 Active rizatriptan LACE WINDER (MAXALT-LACE WINDER) 10 mg disintegrating tabletIndications :Migraine without aura and without status migrainosus, not intractable Take 1 tablet (10 mg total) by mouth once as needed for migraine May repeat in 2 hours if unresolved. Do not exceed 30 mg in 24 hours. 9 tablet 11 Active topiramate (TOPAMAX) 50 mg tablet Take 1 tab by mouth at bedtime 90 tablet [address] (CYMBALTA) 60 mg capsuleIndication s:Migraine without aura and without status migrainosus, not intractable TAKE 1 CAPSULE BY MOUTH EVERY DAY 90 capsule 3 Active traZODone (DESYREL) 100 mg tabletIndications :insomnia associated with depression Take 1 tablet (100 mg total) by mouth nightly 30 tablet 11 025 2025 Active amoxicillin 500 mg capsule 1 tablet/capsule (500 mg total) Active cetirizine (ZyrTEC) 10 mg tablet Take 1 tablet (10 mg total) by mouth daily Active benzonatate (TESSALON) 100 mg capsule 1 capsule (100 mg total) Active guaiFENesin-codei ne (GUAITUSS AC) liquid 100-10 mg/5 mL TAKE 10 ML BY MOUTH EVERY 4 TO 6 HOURS NEEDED FOR COUGH FOR 5 DAYS Active doxycycline monohydrate (MONODOX) 100 mg capsule 1 capsule (100 mg total) Active fluticasone propionate (FLONASE) 50 mcg/actuation nasal spray SPRAY 1-2 SPRAYS INTO EACH NOSTRIL ONCE DAILY NEEDED Active methylPREDNISolon e (MEDROL DOSEPACK) 4 mg Dosepack 1 tablet (4 mg total) Active predniSONE (DELTASONE) 10 mg tablet 1 tablet (10 mg) Active Xeljanz XR 11 mg TAKE 1 TABLET BY MOUTH 1 TIME A DAY EVERY MORNING. 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 Assessment & Plan (11/09/2022 1:02 PM MUNITIONS HANDLER SUPERVISOR): Isabella 1 positive anti synthetase syndrome currently [...] 09/16/2020 Assessment & Plan (09/16/2020 12:34 PM MUNITIONS HANDLER SUPERVISOR): This is a new problem for her. At this time, I recommend simply extension exercises but I have discussed with her percutaneous fasciotomy through Dr. Rosas should this be progressive. We discussed the genetic nature of this. Carpal tunnel syndrome, bilateral 10/22/2019 Overview (10/22/2019): Added automatically from request for surgery [id number] Shoulder pain, right 05/31/2019 Assessment & Plan [...] available. Assessment & Plan (11/09/2022 1:01 PM MUNITIONS HANDLER SUPERVISOR): No articular symptoms at this time and [...] months. Assessment & Plan (09/16/2020 12:34 PM MUNITIONS HANDLER SUPERVISOR): Well controlled synovitis today. The Dupuytren's contracture is relatively rapidly progressing as was not apparent at last psuq-cr-esvs visit which was almost a year ago. [...] indicated. Assessment & Plan (10/16/2019 12:03 PM MUNITIONS HANDLER SUPERVISOR): Longstanding seronegative rheumatoid arthritis presents today with [...] She had a recent visit with her engineer byproduct that I believe feels she has a [...] methotrexate. Assessment & Plan (10/28/2018 10:26 AM MUNITIONS HANDLER SUPERVISOR): 58-year-old white female with seronegative rheumatoid arthritis [...] - 01/20/2025 11:59 PM CDT Hospital Encounter [facility] - [facility] Floor [address] [place] [address] Malignant neoplasm of upper-outer quadrant of left breast in female, estrogen receptor positive (HCC) Discharge Disposition: Discharge to home or self care 01/20/2025 10:30 AM CDT Office Visit [facility] Surgery [address] [place] [address] [address] [place] [address] Ling Goldsmith MD Malignant neoplasm of upper-outer quadrant of left breast in female, estrogen receptor positive (HCC) (Primary Dx) from Last 3 Months Immunizations Immunization Administration [...] on file Legal Sex Female 7:40 PM MUNITIONS HANDLER SUPERVISOR Gender Identity Female 02/20/2020 12:23 AM [...] Comments Blood Pressure 114/80 11/13/2024 10:04 AM MUNITIONS HANDLER SUPERVISOR Pulse 73 11/13/2024 10:04 AM MUNITIONS HANDLER SUPERVISOR Temperature 36.3 C (97.4 F) 11/13/2024 10:04 AM MUNITIONS HANDLER SUPERVISOR Respiratory Rate 18 11/13/2024 10:04 AM MUNITIONS HANDLER SUPERVISOR Oxygen Saturation 97% 11/13/2024 10:04 AM MUNITIONS HANDLER SUPERVISOR Inhaled Oxygen Concentration - - Weight 94.1 kg (207 lb 6.4 oz) 01/20/2025 10:29 AM CDT Height 172.7 cm (5' 8) 01/20/2025 10:29 AM CDT Body Mass Index 31.54 01/20/2025 10:29 AM CDT Plan of Treatment Health Maintenance Due Date Last Done Comments Cervical Cancer Screening 1960 Colon Cancer Screening-Colonoscopy 1960 Depression Screening 1960 Hepatitis C Screening 1960 Hepatitis B Screening 1978 Regular Well Visit/Exam 18-64 1978 Zoster Vaccine (1 of 2) 1979 Covid-19 Vaccine ( season) 2024 08/26/2021, 11/20/2020, 10/23/2020 DTaP/Tdap/Td Vaccine (2 - Td or Tdap) 01/14/202506/2015 Influenza Vaccine (Season Ended) 2025 09/22/2021, 07/23/2020, 07/23/2019 Pneumococcal vaccine <65 (3 of 3 - PPSV23, PCV20 or PCV21) 12/07/2025 12/07/2020, 05/19/2020 Breast Cancer Screening-Mammogram 01/20/2026 025 Medical Devices Implanted Type Area Cracker And Cookie Machine Operator Device Identifier Shelf Expiration Date Model / Serial / Lot [employer] Marker Tissue Needle Delivery Spiral Capped Seed Radiopaque Fci Stainless Steel Low Nickel [employer] [id number] - [id number] Implanted:Qty: 1 on 05/23/2024 by Dot Santamaria MD at [facility] Left: Breast [employer] [id number] 06/07/2027 [id number] Procedures Procedure Name Priority Date/Time Associated Diagnosis [...] Electronically signed by: Korin Guaman MD Ling Goldsmith MD IMG MAMMO PROCEDURES Fi nal Result from Last 3 Months Insurance [facility] [employer] [place] Advance Directives For more information, please contact: [phone] Documents on File Type Date Recorded Patient Sweatband Drummer Expl anation Advance Directives and Livin g Will 05/29/2024 7:19 AM Care Teams Business Process Associate Relationship Specialty Start Date End Date Rajesh Connolly MD [address] [place] [address] PCP - General Internal Medicine 08/13/23 Rajesh Connolly MD Referring Physician Internal Medicine 02/21/19 Nikki Cuellar MD [address] [facility] [address] [place] [address] Radiation Oncologist Radiation Oncology 06/26/24 Ling Goldsmith MD [address] [place] [address] Surgeon Surgical Oncology 06/26/24 Fa'Felipe alcocer MD [address] [facility] [address] DIV [place] [address] Consulting Physician Medical Oncology 06/26/24
--- OUTSIDE RECORDS SUMMARY | 2025-03-11 14:48 | XMS_ITS | Encounter Summary ---
Author Organization [facility] Address [address] [place] [address] Care Team Providers Care Sewer Tapper Name Role Phone Nakita Falk MD Primary Care Provider [phone] Reason for Visit * Diagnostic Imaging (Routine) - Pending Review Specialty Diagnoses / Procedures Referred By Kirsten dodge Referred To Contact Procedures Breast Imaging Screening Outside Reference Transcribed Order, Provider Referral ID Status Reason Start Date Expiration Date V isits Requested Visits Authorized [id number] Pending Review 05/15/2024 06/14/2025 1 1 Encounter Details Date Type Department Care Team (Late st Contact Info) Description 05/14/2017 Hospital Encounter [facility] [address] [place] [phone] Social History Tobacco Use Types Packs/Day Years [...] on file Legal Sex Female 7:40 PM EXCEPTIONAL CHILDREN'S TEACHER Gender Identity Female 02/20/2020 12:23 AM CDT Sexual Orientation Straight 07/08/2024 2: 34 PM CDT documented as of this encounter Functional Status * Audit-C Score Answer Date of Assessment Author 0 06/26/2024 9:09 AM CDT Abbey Smith RN * Question Answer Date of [...] only and have not been reviewed by [facility]iology. There will be no report generated by a [facility] Radiologist. Narrative [id number] - 05/15/2024 12:42 PM [...] COVID: Suspected 09/13/2023 09/14/2023 09/14/2023 3:05 AM EXCEPTIONAL CHILDREN'S TEACHER COVID: Suspected 09/14/2023 09/14/2023 09/14/2023 4:33 PM EXCEPTIONAL CHILDREN'S TEACHER COVID19 09/14/2023 09/14/2023 09/24/2023 3:05 AM EXCEPTIONAL CHILDREN'S TEACHER COVID: Recovered Comment:Added based on recent COVID infection. 09/24/2023 10/23/2023 12/23/2023 3:06 AM C DT documented as of this encounter Care Teams Sewer Tapper Relationship Specialty Start Date End Date Nakita Falk MD [address] [facility] [address] [address] PCP - General 01/29/17 06/27/17 documented as of this encounter
--- OUTSIDE RECORDS SUMMARY | 2025-03-11 14:48 | XMS_ITS | Referral Summary ---
Author Organization [facility] Address [address] [place] [address] Care Team Providers Care Body Worker Name Role Phone Rajesh Connolly MD Unavailable [phone] Rajesh Connolly MD Primary Care Provider + [phone] Nikki Cuellar MD Unavailable Ling Goldsmith MD Unavailable [phone] Felipe Simeon MD Unavailable Encounters Date Type Department Care Team Description 01/20/2025 10:30 AM CDT Office Visit [facility] Floor 8 [place] [id number] Ling Goldsmith MD Malignant neoplasm of upper-outer quadrant of left breast in female, estrogen receptor positive (HCC) (Primary Dx) 01/20/2025 10:38 AM CDT - 01/20/2025 11:59 PM CDT Hospital Encounter [facility] [place] [facility] [address] [place] [address] Floor 8 [place] [address] Malignant neoplasm of upper-outer quadrant of left breast in female, estrogen receptor positive (HCC) Discharge Disposition: Discharge to home or self care from Last 3 Months Allergies Active Allergy [...] NIGHTLY NEEDED FOR SLEEP 90 tablet 1 024 Active Additional Information Patient not taking.Informant: Self, Reported on 01/20/2025 cannabidiol, CBD, (medical cannabis) each Take 1 Dose by mouth as needed (migraines) Active fish oil-dha-epa 1,200-144-216 mg capsule Take by mouth Active anastrozole (ARIMIDEX) 1 mg tablet TAKE 1 TABLET BY MOUTH EVERY DAY 90 tablet 1 Active azithromycin (ZITHROMAX) 250 mg tablet Take 1 tablet (250 mg total) by mouth daily Active propranolol LA (INDERAL LA) 80 mg 24 hr capsuleIndication s:Migraine without aura and without status migrainosus, not intractable Take 1 capsule (80 mg total) by mouth daily 90 capsule 3 Active rizatriptan JUNIOR TECHNICAL WRITER (MAXALT-JUNIOR TECHNICAL WRITER) 10 mg disintegrating tabletIndications :Migraine without aura [...] a day with meals 60 tablet 11 2025 Active cholecalciferol (VITAMIN D-3) 50,000 unit capsule TAKE 1 CAPSULE BY MOUTH ONE TIME PER WEEK 12 capsule 1 2024 Discontinued Active Problems Problem Noted Date [...] 11/09/2022 Assessment & Plan (11/09/2022 1:03 PM TYPESETTER PERFORATOR OPERATOR): This may represent a postinfectious cough but [...] echocardiogram. Assessment & Plan (11/09/2022 1:02 PM TYPESETTER PERFORATOR OPERATOR): Isabella 1 positive anti synthetase syndrome currently [...] 09/16/2020 Assessment & Plan (09/16/2020 12:34 PM TYPESETTER PERFORATOR OPERATOR): This is a new problem for her. At this time, I recommend simply extension exercises but I have discussed with her percutaneous fasciotomy through Dr. Rosas should this be progressive. We discussed the genetic nature of this. Carpal tunnel syndrome, bilateral 10/22/2019 Overview (10/22/2019): Added automatically from request for surgery [id number] Shoulder pain, right 05/31/2019 Assessment & Plan [...] available. Assessment & Plan (11/09/2022 1:01 PM TYPESETTER PERFORATOR OPERATOR): No articular symptoms at this time and [...] months. Assessment & Plan (09/16/2020 12:34 PM TYPESETTER PERFORATOR OPERATOR): Well controlled synovitis today. The Dupuytren's contracture is relatively rapidly progressing as was not apparent at last [id number]-xe-[id number] visit which was almost a year ago. [...] indicated. Assessment & Plan (10/16/2019 12:03 PM TYPESETTER PERFORATOR OPERATOR): Longstanding seronegative rheumatoid arthritis presents today with [...] She had a recent visit with her youth services librarian that I believe feels she has a [...] methotrexate. Assessment & Plan (10/28/2018 10:26 AM TYPESETTER PERFORATOR OPERATOR): 58-year-old white female with seronegative rheumatoid arthritis [...] on file Legal Sex Female 7:40 PM TYPESETTER PERFORATOR OPERATOR Gender Identity Female 02/20/2020 12:23 AM CDT Sexual Orientation Straight 07/08/2024 2: 34 PM CDT Last Filed Vital Signs Vital Sign Reading Time Taken Comments Blood Pressure 114/80 11/13/2024 10:04 AM TYPESETTER PERFORATOR OPERATOR Pulse 73 11/13/2024 10:04 AM TYPESETTER PERFORATOR OPERATOR Temperature 36.3 C (97.4 F) 11/13/2024 10:04 AM TYPESETTER PERFORATOR OPERATOR Respiratory Rate 18 11/13/2024 10:04 AM TYPESETTER PERFORATOR OPERATOR Oxygen Saturation 97% 11/13/2024 10:04 AM TYPESETTER PERFORATOR OPERATOR Inhaled Oxygen Concentration - - Weight 94.1 kg (207 lb 6.4 oz) 01/20/2025 10:29 AM CDT Height 172.7 cm (5' 8) 01/20/2025 10:29 AM CDT Body Mass Index 31.54 01/20/2025 10:29 AM CDT Plan of Treatment Not on file Medical Devices Implanted Type Area Faculty Head Device Identifier Shelf Expiration Date Model / Serial / Lot [employer] Marker Tissue Needle Delivery Spiral Capped Seed Radiopaque Electroplater Stainless Steel Low Nickel Sentimag [id number] - [id number] Implanted:Qty: 1 on 05/23/2024 by Dot Santamaria MD at [facility] Left: Breast [employer] [id number] 06/07/2027 [id number] Procedures Procedure Name Priority Date/Time Associated Diagnosis [...] nal Result from Last 3 Months Insurance [facility] Advance Directives For more information, please contact: [phone] Documents on File Type Date Recorded Patient Osteopathic Medicine Teacher Expl anation Advance Directives and Livin g Will 05/29/2024 7:19 AM Care Teams Body Worker Relationship Specialty Start Date End Date Rajesh Connolly MD [address] [place] [address] PCP - General Internal Medicine 08/13/23 Rajesh Connolly MD Referring Physician Internal Medicine 02/21/19 Nikki Cuellar MD [address] [facility] [address] LL [address] [place] [address] Radiation Oncologist Radiation Oncology 06/26/24 Ling Goldsmith MD [address] [place] [address] Surgeon Surgical Oncology 06/26/24 Fa'Felipe alcocer MD [address] [facility] [address] [place] [address] Consulting Physician Medical Oncology 06/26/24
--- OUTSIDE RECORDS SUMMARY | 2025-03-11 14:48 | XMS_ITS | Encounter Summary ---
Author Organization [facility] Address [address] [place] [address] Phone Care Team Providers Care Director Of Head Start Name Role Phone Nakita Falk MD Primary Care Provider [phone] Rajesh Connolly MD Unavailable [phone] Rajesh Connolly MD Primary Care Provider + [phone] Nikki Cuellar MD Unavailable Ling Goldsmith MD Unavailable [phone] Felipe Simeon MD Unavailable Encounter Details Date [...] on file Legal Sex Female 7:40 PM COMPENSATION ADJUSTER Gender Identity Female 02/20/2020 12:23 AM CDT [...] COVID: Suspected 09/13/2023 09/14/2023 09/14/2023 3:05 AM COMPENSATION ADJUSTER COVID: Suspected 09/14/2023 09/14/2023 09/14/2023 4:33 PM COMPENSATION ADJUSTER COVID19 09/14/2023 09/14/2023 09/24/2023 3:05 AM COMPENSATION ADJUSTER COVID: Recovered Comment:Added based on recent COVID infection. 09/24/2023 10/23/2023 12/23/2023 3:06 AM C DT documented as of this encounter Care Teams Director Of Head Start Relationship Specialty Start Date End Date Nakita Falk MD [address] [place] [address] PCP - General 02/19/18 08/12/23 Rajesh Connolly MD [address] [place] [address] PCP - General Internal Medicine 08/13/23 Rajesh Connolly MD [address] [place] [address] Referring Physician Internal Medicine 02/21/19 Nikki Cuellar MD [address] [facility] # [address] LL [address] [place] [address] Radiation Oncologist Radiation Oncology 06/26/24 Ling Goldsmith MD [address] [place] [address] Surgeon Surgical Oncology 06/26/24 Fa'Felipe alcocer MD [address] [facility] [place] [address] Consulting Physician Medical Oncology 06/26/24 documented as of this encounter
--- OUTSIDE RECORDS SUMMARY | 2025-03-11 14:48 | XMS_ITS | Encounter Summary ---
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 09/24/2023 10/23/2023 12/23/2023 3:06 AM C DT documented as of this encounter Care Teams Phone Circuit Operator Relationship Specialty Start Date End Date Nakita Falk MD [address] [place] [address] [address] [place] [address] PCP - General 02/19/18 08/12/23 Rajesh Connolly MD [address] [place] [address] PCP - General Internal Medicine 08/13/23 Rajesh Connolly MD [address] [place] [address] [address] [place] [address] Referring Physician Internal Medicine 02/21/19 Nikki Cuellar MD [address] [facility] # [address] LL [address] [place] [address] Radiation Oncologist Radiation Oncology 06/26/24 Ling Goldsmith MD [facility] [address] [place] [address] Surgeon Surgical Oncology 06/26/24 Fa'Felipe alcocer MD [address] [facility] [address] [place] [address] Consulting Physician Medical Oncology 06/26/24 documented as of this encounter
--- OUTSIDE RECORDS SUMMARY | 2025-03-11 14:48 | XMS_ITS | Encounter Summary ---
Author Organization [facility] Address [address] [place] [address] Care Team Providers Care Carpentry Teacher Name Role Phone Rajesh Connolly MD Unavailable [phone] Rajesh Connolly MD Primary Care Provider + [phone] Nikki Cuellar MD Unavailable Ling Goldsmith MD Unavailable +[phone] Felipe Simeon MD Unavailable Encounter Details Date Type Department Care Team (Late st Contact Info) Description 08/18/2024 Telephone [facility] Advanced Medicine Radiation Oncology [facility] Advanced Medicine [place], [place] [id number] Nikki Cuellar MD [address] [facility] # [address] LL [address] [place] [address] Social History Tobacco Use Types Packs/Day Years [...] on file Legal Sex Female 7:40 PM 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 Gender Identity Female 02/20/2020 12:23 AM CDT Sexual Orientation Straight 07/08/2024 2: 34 PM CDT documented as of this encounter Plan of Treatment Not on file documented as of this encounter Visit Diagnoses Not on filedocumented in this encounter Care Teams Carpentry Teacher Relationship Specialty Start Date End Date Rajesh Connolly MD [address] [place] [address] PCP - General Internal Medicine 08/13/23 Rajesh Connolly MD Referring Physician Internal Medicine 02/21/19 Nikki Cuellar MD [address] [facility] # [address] [place] [address] Radiation Oncologist Radiation Oncology 06/26/24 Ling Goldsmith MD [address] [place] [address] Surgeon Surgical Oncology 06/26/24 Felipe Simeon MD [address] [facility] [address] [place] [address] Consulting Physician Medical Oncology 06/26/24 documented as of this encounter
--- OUTSIDE RECORDS SUMMARY | 2025-03-11 14:48 | XMS_ITS | Encounter Summary ---
Author Organization [facility] Address [address] [place] [address] Phone Care Team Providers Care Miller Supervisor Name Role Phone Nakita Falk MD Primary Care Provider [phone] Rajesh Connolly MD Unavailable [phone] Rajesh Connolly MD Primary Care Provider + [phone] Nikki Cuellar MD Unavailable Ling Goldsmith MD Unavailable [phone] Felipe Simeon MD Unavailable Encounter Details Date [...] on file Legal Sex Female 7:40 PM VARIETY SAW OPERATOR Gender Identity Female 02/20/2020 12:23 AM [...] COVID: Suspected 09/13/2023 09/14/2023 09/14/2023 3:05 AM VARIETY SAW OPERATOR COVID: Suspected 09/14/2023 09/14/2023 09/14/2023 4:33 PM VARIETY SAW OPERATOR COVID19 09/14/2023 09/14/2023 09/24/2023 3:05 AM VARIETY SAW OPERATOR COVID: Recovered Comment:Added based on recent COVID infection. 09/24/2023 10/23/2023 12/23/2023 3:06 AM C DT documented as of this encounter Care Teams Miller Supervisor Relationship Specialty Start Date End Date Nakita Falk MD [address] [place] [address] PCP - General 02/19/18 08/12/23 Rajesh Connolly MD [address] [place] [address] PCP - General Internal Medicine 08/13/23 Rajesh Connolly MD [address] [place] [address] Referring Physician Internal Medicine 02/21/19 Nikki Cuellar MD [address] [facility] # [address] [place] [address] Radiation Oncologist Radiation Oncology 06/26/24 Ling Goldsmith MD [address] [place] [address] Surgeon Surgical Oncology 06/26/24 Fa'Felipe alcocer MD [address] [facility] [address] [place] [address] Consulting Physician Medical Oncology 06/26/24 documented as of this encounter
--- OUTSIDE RECORDS SUMMARY | 2025-03-11 14:48 | XMS_ITS | Encounter Summary ---
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 Gender Identity Female 02/20/2020 12:23 AM CDT [...] documented as of this encounter Care Teams Budget Assistant Relationship Specialty Start Date End Date Rajesh Connolly MD [address] [place] [address] PCP - General Internal Medicine 08/13/23 Rajesh Connolly MD Referring Physician Internal Medicine 02/21/19 Nikki Cuellar MD [address] [facility] # LL [address] [place] [address] Radiation Oncologist Radiation Oncology 06/26/24 Ling Goldsmith MD [address] [place] [address] Surgeon Surgical Oncology 06/26/24 Felipe Simeon MD 1 [facility] [place] [address] Consulting Physician Medical Oncology 06/26/24 documented as of this encounter
--- OUTSIDE RECORDS SUMMARY | 2025-03-11 14:48 | XMS_ITS | Encounter Summary ---
Author Organization 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 09/24/2023 10/23/2023 12/23/2023 3:06 AM C DT documented as of this encounter Care Teams Event Representative Relationship Specialty Start Date End Date Nakita Falk MD [address] [facility] [address] [place] [address] PCP - General 02/19/18 08/12/23 Rajesh Connolly MD [address] [place] [address] PCP - General Internal Medicine 08/13/23 Rajesh Connolly MD [address] [facility] [address] [place] [address] Referring Physician Internal Medicine 02/21/19 Nikki Cuellar MD [address] [facility] # [address] [place] [address] Radiation Oncologist Radiation Oncology 06/26/24 Ling Goldsmith MD [address] [place] [address] Surgeon Surgical Oncology 06/26/24 Fa'Felipe alcocer MD [address] [facility] [address] DIV [place] [address] Consulting Physician Medical Oncology 06/26/24 documented as of this encounter
--- OUTSIDE RECORDS SUMMARY | 2025-03-11 14:48 | XMS_ITS | Encounter Summary ---
Author Organization [facility] Healthcare Address [address] [place] [address] Care Team Providers Care Cabin Service Agent Name Role Phone Nakita Falk MD Primary Care Provider [phone] Reason for Visit * Diagnostic Imaging (Routine) - Pending Review Specialty Diagnoses / Procedures Referred By Kirsten dodge Referred To Contact Procedures Breast Imaging Screening Outside Reference Transcribed Order, Provider Referral ID Status Reason Start Date Expiration Date V isits Requested Visits Authorized [id number] Pending Review 05/15/2024 06/14/2025 1 1 Encounter Details Date Type Department Care Team (Late st Contact Info) Description 09/11/2018 Hospital Encounter [facility] [address] [place] [address] Social History Tobacco Use Types Packs/Day Years [...] on file 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 There will be no report generated by a [facility] Radiologist. Narrative RAD_MAMMO[facility] - 05/15/2024 12:42 [...] COVID: Suspected 09/13/2023 09/14/2023 09/14/2023 3:05 AM AMUSEMENT CENTRE MANAGER COVID: Suspected 09/14/2023 09/14/2023 09/14/2023 4:33 PM AMUSEMENT CENTRE MANAGER COVID19 09/14/2023 09/14/2023 09/24/2023 3:05 AM AMUSEMENT CENTRE MANAGER COVID: Recovered Comment:Added based on recent COVID infection. 09/24/2023 10/23/2023 12/23/2023 3:06 AM C DT documented as of this encounter Care Teams Cabin Service Agent Relationship Specialty Start Date End Date Nakita Falk MD 10 [facility] [address] [place] [address] PCP - General 02/19/18 08/12/23 documented as of this encounter
[2025-03-11 14:55] LABS: Hematocrit 37.4 % (35.0-49.0); Hemoglobin 12.2 g/dL (12.0-15.0); Mean Corpuscular HGB Conc 32.6 g/dL (32-36); Mean Corpuscular Hemoglobin 31.7 pg (27.0-31.0); Mean Corpuscular Volume 97.1 fL (78.0-102.0); Mean Platelet Volume 11.9 fl (9.2-11.8); Platelet Count Result 224 K/mm3 (150-420); Red Blood Count 3.85 M/mm3 (4.20-5.40); Red Cell Distribution Width 13.2 % (11.6-14.4); White Blood Count 6.6 K/mm3 (4.8-10.8)
[2025-03-11 15:22] LABS: Alanine Aminotransferase 21 U/L (6-35); Albumin Level 4.1 g/dL (3.5-5.1); Alkaline Phosphatase 51 U/L (38-126); Anion Gap 3 mmol/L (4-12); Aspartate Amino Transferase 33 U/L (14-36); Bilirubin,Total 0.7 mg/dL (0.2-1.3); Blood Urea Nitrogen 15 mg/dL (7-17); Calcium 8.8 mg/dL (8.4-10.2); Carbon Dioxide 32 mmol/L (22-30); Chloride 106 mmol/L (98-107); Estimated Glomerular Filt Rate 48; Glucose 91 mg/dL (65-110); Osmolality Calculated 292 mOsm/kg (285-295); Potassium 3.6 mmol/L (3.4-5.0); Sodium 141 mmol/L (137-145)
[2025-03-11 16:20] LABS: Influenza B QL RT-PCR Negative (Negative); SARS-CoV-2 RNA PCR Negative (Negative); Strep Group A RT-PCR Not Detected (Negative)
[2025-03-11 16:21] LABS: Influenza A QL RT-PCR Negative (Negative); RSV RNA, RT-PCR Negative (Negative)
== END 2025-03-11 14:35 | disposition home or self-care (01) ==
LOC: CHSLAB 14:36
PROVIDERS: PCP Internal Medicine; Visit Provider Internal Medicine
DX: R05.9 Cough, unspecified (principal); R92.8 Other abnormal and inconclusive findings on diagnostic imaging of breast
CPT/HCPCS: 36415; 71046; 80053; 85027; 87637; 87651

== ENCOUNTER 2025-03-20 09:35 | Outpatient (CLI) | payer BC, SELFPAY ==
--- NOTE | ~2025-03-20 | CT_ITS ---
CT Scan of the Chest without Contrast: Clinical Indication: Cough Technique: Contiguous sections were acquired throughout the chest without intravenous contrast. Dose reduction technique was used on this scan by utilizing automated exposure control and iterative recon struction technique. The dose-length product (DLP) was 197.72 mGy-cm. Findings: There is no evidence of any significant mediastinal, hilar or axillary lymphadenopathy. The mediastin al soft tissues appear normal. There is no evidence of pleural or pericardial effusion. There is extensive chronic interstitial disease with basilar and peripheral distribution overall. The re is extensive interstitial thickening, subpleural reticulation, and predominant bibasilar/periphera l groundglass opacity. No suspicious pulmonary nodule evident. Images through the upper abdomen reveal no abnormalities. Impression: Extensive chronic interstitial disease, as detailed above, with basilar predominance. Reviewed, dictated and finalized at [facility]. Impression: Extensive chronic interstitial disease, as detailed above, with basilar predomi nance.
--- OUTSIDE RECORDS SUMMARY | 2025-03-20 09:41 | XMS_ITS | Encounter Summary ---
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 [address] [place] [address] Consulting Physician Medical Oncology 06/26/24 documented as of this encounter
--- OUTSIDE RECORDS SUMMARY | 2025-03-20 09:41 | XMS_ITS | Encounter Summary ---
Author Organization [facility] Address [address] [place] [address] Phone Care Team Providers Care Rechecker Name Role Phone Nakita Falk MD Primary Care Provider [phone] Rajesh Connolly MD Unavailable [phone] Rajesh Connolly MD Primary Care Provider + [phone] Nikki Cuellar MD Unavailable Ling Goldsmith MD Unavailable [phone] Felipe Simeon MD Unavailable Encounter Details Date [...] on file Legal Sex Female 7:40 PM APRON MAN Gender Identity Female 02/20/2020 12:23 AM CDT [...] COVID: Suspected 09/13/2023 09/14/2023 09/14/2023 3:05 AM APRON MAN COVID: Suspected 09/14/2023 09/14/2023 09/14/2023 4:33 PM APRON MAN COVID19 09/14/2023 09/14/2023 09/24/2023 3:05 AM APRON MAN COVID: Recovered Comment:Added based on recent COVID infection. 09/24/2023 10/23/2023 12/23/2023 3:06 AM C DT documented as of this encounter Care Teams Rechecker Relationship Specialty Start Date End Date Nakita Falk MD [address] [place] [address] [address] [place] [address] PCP - General 02/19/18 08/12/23 Rajesh Connolly MD [address] [place] [address] PCP - General Internal Medicine 08/13/23 Rajesh Connolly MD [address] [place] [address] [address] [place] [address] Referring Physician Internal Medicine 02/21/19 Nikki Cuellar MD [address] [facility] # [address] [place] [address] Radiation Oncologist Radiation Oncology 06/26/24 Ling Goldsmith MD [facility] [address] [place] [address] Surgeon Surgical Oncology 06/26/24 Fa'Felipe alcocer MD 1 [facility] [address] DIV [place] [address] Consulting Physician Medical Oncology 06/26/24 documented as of this encounter
--- OUTSIDE RECORDS SUMMARY | 2025-03-20 09:41 | XMS_ITS | Encounter Summary ---
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 09/24/2023 10/23/2023 12/23/2023 3:06 AM C DT documented as of this encounter Care Teams Manager Sales Relationship Specialty Start Date End Date Nakita Falk MD [address] [place] [address] PCP - General 02/19/18 08/12/23 Rajesh Connolly MD [address] [place] [address] PCP - General Internal Medicine 08/13/23 Rajesh Connolly MD [address] [place] [address] Referring Physician Internal Medicine 02/21/19 Nikki Cuellar MD [address] [facility] # [address] [place] [address] Radiation Oncologist Radiation Oncology 06/26/24 Ling Goldsmith MD [address] [place] [address] Surgeon Surgical Oncology 06/26/24 Fa'Felipe alcocer MD [address] [facility] [address] [place] [address] Consulting Physician Medical Oncology 06/26/24 documented as of this encounter
--- OUTSIDE RECORDS SUMMARY | 2025-03-20 09:41 | XMS_ITS | Clinical Summary ---
Author Organization [facility] [address] [facility] Address [address] [place] [address] Care Team Providers Care Baby Formula Worker Name Role Phone Rajesh Connolly MD Primary [...] by mouth daily. 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 [address] [place] [address] [place] [address] [facility] [address] [place] [address] Health Maintenance Due Date Last Done Comments Pre-Diabetes and Diabetes Screening 1960 ZOSTER VACCINE (1 of 2) 1979 COLORECTAL SCREENING 2005 Colorectal Cancer Screening 2005 FIT-DNA Q 3 years 2005 FIT/FOBT Q 1 year 2005 Flex Sig/CT Colonography Q 5 years 2005 RSV VACCINE (60+ or ) (1 - Risk 60-74 years 1-dose series) 2020 INFLUENZA VACCINE (#1) 2024 1, 07/23/2020, 07/23/2019 DTAP/TDAP/TD VACCINES (2 - T [...] PAP (12/26/2023 2:37 PM CDT) COMMENT (PAP): [facility] [place] Comment: This order for age-based cervical cancer and STI screening follows ACOG guidelines(PB 168, 140, XCQ076). See individual assays for performing site location. CLINICAL INFORMATION [facility] [place] Comment:None given LAST MENSTRUAL PERIOD [facility] [place] Comment:NONE GIVEN PREV PAP: [facility] [place] Comment:NONE GIVEN PREV BX: [facility] [place] Comment:NONE GIVEN SOURCE [facility] [place] Comment:Endocervix ADEQUACY: [facility] [place] Comment:SATISFACTORY FOR VIKTOR LUATION PAP INTERP [facility] [place] Comment: Cytology Results: Negative for intraepithelial lesion or malignancy. Atrophic pattern; predominantly parabasal cells COMMENT (PAP TEST) [facility] [place] Comment: This Pap test has been evaluated with computer assisted technology. CIRCUIT WALKER: [facility] [place] Comment: BES, CT(ASCP) CT screening location: [place] [address] [place] [address] [facility] [place] Comment: EXPLANATORY NOTE: The Pap is a [...] information. HPV E6/E7 Not Detected Not Detected Always Prepped Comment: Methodology: Sql Bi Developer-Mediated Amplification This assay detects E6/E7 viral messenger RNA (mRNA) from 14 high-risk HPV types (16,18,31,33,35,39,45,51,52,56,58,59,66,68). Cervical sources are required for HPV testing. If a vaginal source from a patient who has had a total hysterectomy with removal of cervix was submitted, please contact the testing laboratory for alternative testing options. For additional information, please refer to http://education.[employer]/faq/WYY888c6 (This link if provided for information/ educational purposes only.) Test Performed at: [facility] [address] [place] [address] Crystal Feliciano MD Genital SWAB OF ENDOCERVIX / Unknown 12/26/2023 2:37 PM CDT 12/27/2023 1:49 AM CDT Porsche Garrison MD PATHOLOGY/CYTOLOGY ORDERABLES F inal Result [facility] [phone] [facility] [place] [address] [place] [address] from Last 3 Months or Most Recently Relevant to Health Maintenance Insurance [facility] BL[employer] Care Teams Baby Formula Worker Relationship Specialty Start Date End Date Rajesh Connolly MD [address] [place] [address] PCP - General Internal Medicine 11/28/23
--- OUTSIDE RECORDS SUMMARY | 2025-03-20 09:41 | XMS_ITS | Encounter Summary ---
Author Organization [facility] Address [address] [place] [address] Phone Care Team Providers Care Cushion Padder Name Role Phone Nakita Falk MD Primary Care Provider [phone] Rajesh Connolly MD Unavailable [phone] Rajesh Connolly MD Primary Care Provider + [phone] Nikki Cuellar MD Unavailable Ling Goldsmith MD Unavailable [phone] Felipe Simeon MD Unavailable Encounter Details Date [...] on file Legal Sex Female 7:40 PM DIRECTOR OF EVENT MARKETING Gender Identity Female 02/20/2020 12:23 AM CDT [...] COVID: Suspected 09/13/2023 09/14/2023 09/14/2023 3:05 AM DIRECTOR OF EVENT MARKETING COVID: Suspected 09/14/2023 09/14/2023 09/14/2023 4:33 PM DIRECTOR OF EVENT MARKETING COVID19 09/14/2023 09/14/2023 09/24/2023 3:05 AM DIRECTOR OF EVENT MARKETING COVID: Recovered Comment:Added based on recent COVID infection. 09/24/2023 10/23/2023 12/23/2023 3:06 AM C DT documented as of this encounter Care Teams Cushion Padder Relationship Specialty Start Date End Date Nakita Falk MD [address] [place] [address] PCP - General 02/19/18 08/12/23 Rajesh Connolly MD [address] [place] [address] PCP - General Internal Medicine 08/13/23 Rajesh Connolly MD [address] [place] [address] Referring Physician Internal Medicine 02/21/19 Nikki Cuellar MD [address] [facility] # [address] [place] [address] Radiation Oncologist Radiation Oncology 06/26/24 Ling Goldsmith MD [address] [place] [address] Surgeon Surgical Oncology 06/26/24 Fa'Felipe alcocer MD 1 [facility] [address] DIV [place] [address] Consulting Physician Medical Oncology 06/26/24 documented as of this encounter
--- OUTSIDE RECORDS SUMMARY | 2025-03-20 09:41 | XMS_ITS | Encounter Summary ---
Author Organization [facility] Healthcare Address [address] [place] [address] Care Team Providers Care Bass Guitar Teacher Name Role Phone Unavailable Primary Care Provider Unavailabl e Reason for Visit * Diagnostic Imaging (Routine) - Pending Review Specialty Diagnoses / Procedures Referred By Kirsten dodge Referred To Contact Procedures Breast Imaging Screening Outside Reference Transcribed Order, Provider Referral ID Status Reason Start Date Expiration Date V isits Requested Visits Authorized [id number] Pending Review 05/15/2024 06/14/2025 1 1 Encounter Details Date Type Department Care Team (Late st Contact Info) Description 08/18/2015 Hospital Encounter [facility] [address] [place] [address] Social History Tobacco Use Types Packs/Day Years [...] on file Legal Sex Female 7:40 PM MONEY EXAMINER Gender Identity Female 02/20/2020 12:23 AM CDT [...] SCREENING OUTSIDE REFERENCE Routine 08/18/2015 12:00 AM MONEY EXAMINER documented in this encounter Results * Breast Imaging Screening Outside Reference (08/18/2015 12:00 AM MONEY EXAMINER) Impressions [facility] - 05/15/2024 12:42 PM CDT These images are for Reference purposes only and have not been reviewed by [facility] Radiology. There will be no report generated by a [facility] Radiologist. Narrative [facility]_MAMMO[facility] - 05/15/2024 [...] COVID: Suspected 09/13/2023 09/14/2023 09/14/2023 3:05 AM MONEY EXAMINER COVID: Suspected 09/14/2023 09/14/2023 09/14/2023 4:33 PM MONEY EXAMINER COVID19 09/14/2023 09/14/2023 09/24/2023 3:05 AM MONEY EXAMINER COVID: Recovered Comment:Added based on recent COVID infection. 09/24/2023 10/23/2023 12/23/2023 3:06 AM C DT documented as of this encounter
--- OUTSIDE RECORDS SUMMARY | 2025-03-20 09:41 | XMS_ITS | Encounter Summary ---
Author Organization [facility] Healthcare Address [address] [place] [address] Care Team Providers Care Switch Operators Supervisor Name Role Phone Rajesh Connolly MD Unavailable [phone] Rajesh Connolly MD Primary Care Provider + [phone] Nikki Cuellar MD Unavailable Ling Goldsmith MD Unavailable [phone] Felipe Simeon MD Unavailable Encounter Details Date Type Department Care Team (Late st Contact Info) Description 08/18/2024 Telephone [facility] Advanced Medicine Radiation Oncology [facility] Advanced Medicine [place], [place] [id number] Nikki Cuellar MD [address] [facility] # [address] LL [address] [place] [address] Social History Tobacco Use Types Packs/Day Years [...] on file Legal Sex Female 7:40 PM PIPE LINE WALKER Gender Identity Female 02/20/2020 12:23 AM CDT Sexual Orientation Straight 07/08/2024 2: 34 PM CDT documented as of this encounter Plan of Treatment Not on file documented as of this encounter Visit Diagnoses Not on filedocumented in this encounter Care Teams Switch Operators Supervisor Relationship Specialty Start Date End Date Rajesh Connolly MD [address] [place] [address] PCP - General Internal Medicine 08/13/23 Rajesh Connolly MD Referring Physician Internal Medicine 02/21/19 Nikki Cuellar MD [address] [facility] # [address] [place] [address] Radiation Oncologist Radiation Oncology 06/26/24 Ling Goldsmith MD [address] [place] [address] Surgeon Surgical Oncology 06/26/24 Felipe Simeon MD [address] [facility] [address] [place] [address] Consulting Physician Medical Oncology 06/26/24 documented as of this encounter
--- OUTSIDE RECORDS SUMMARY | 2025-03-20 09:41 | XMS_ITS | Encounter Summary ---
Author Organization [facility] Healthcare Address [address] [place] [address] Care Team Providers Care Docketing Specialist Name Role Phone Nakita Falk MD Primary Care Provider [phone] Reason for Visit * Diagnostic Imaging (Routine) - Pending Review Specialty Diagnoses / Procedures Referred By Kirsten dodge Referred To Contact Procedures Breast Imaging Screening Outside Reference Transcribed Order, Provider Referral ID Status Reason Start Date Expiration Date V isits Requested Visits Authorized [id number] Pending Review 05/15/2024 06/14/2025 1 1 Encounter Details Date Type Department Care Team (Late st Contact Info) Description 09/11/2018 Hospital Encounter [facility] [address] [place] [address] Social History Tobacco Use Types Packs/Day Years [...] on file Legal Sex Female 7:40 PM NURSING SUPPORT WORKER Gender Identity Female 02/20/2020 12:23 AM CDT [...] SCREENING OUTSIDE REFERENCE Routine 09/11/2018 12:00 AM NURSING SUPPORT WORKER documented in this encounter Results * Breast Imaging Screening Outside Reference (09/11/2018 12:00 AM NURSING SUPPORT WORKER) Impressions [facility] - 05/15/2024 12:42 PM CDT These images are for Reference purposes only and have not been reviewed by [facility] Radiology. There will be no report generated by a [facility] Radiologist. Narrative RAD_MAMMO[facility] - 05/15/2024 [...] COVID: Suspected 09/13/2023 09/14/2023 09/14/2023 3:05 AM NURSING SUPPORT WORKER COVID: Suspected 09/14/2023 09/14/2023 09/14/2023 4:33 PM NURSING SUPPORT WORKER COVID19 09/14/2023 09/14/2023 09/24/2023 3:05 AM NURSING SUPPORT WORKER COVID: Recovered Comment:Added based on recent COVID infection. 09/24/2023 10/23/2023 12/23/2023 3:06 AM C DT documented as of this encounter Care Teams Docketing Specialist Relationship Specialty Start Date End Date Nakita Falk MD 10 [facility] [address] [place] [address] PCP - General 02/19/18 08/12/23 documented as of this encounter
--- OUTSIDE RECORDS SUMMARY | 2025-03-20 09:41 | XMS_ITS | Encounter Summary ---
Author Organization [facility] Healthcare Address [address] [place] [address] Care Team Providers Care Promotional Demonstrator Name Role Phone Nakita Falk MD Primary Care Provider [phone] Reason for Visit * Diagnostic Imaging (Routine) - Pending Review Specialty Diagnoses / Procedures Referred By Kirsten dodge Referred To Contact Procedures Breast Imaging Screening Outside Reference Transcribed Order, Provider Referral ID Status Reason Start Date Expiration Date V isits Requested Visits Authorized [id number] Pending Review 05/15/2024 06/14/2025 1 1 Encounter Details Date Type Department Care Team (Late st Contact Info) Description 05/14/2017 Hospital Encounter [facility] [address] [place] [id number] Social History Tobacco Use Types Packs/Day Years [...] on file Legal Sex Female 7:40 PM SECTION HOUSEKEEPER Gender Identity Female 02/20/2020 12:23 AM CDT [...] only and have not been reviewed by [facility] Radiology. There will be no report generated by a [facility] Radiologist. Narrative [facility]_MAMMO[facility] - 05/15/2024 12:42 PM [...] COVID: Suspected 09/13/2023 09/14/2023 09/14/2023 3:05 AM SECTION HOUSEKEEPER COVID: Suspected 09/14/2023 09/14/2023 09/14/2023 4:33 PM SECTION HOUSEKEEPER COVID19 09/14/2023 09/14/2023 09/24/2023 3:05 AM SECTION HOUSEKEEPER COVID: Recovered Comment:Added based on recent COVID infection. 09/24/2023 10/23/2023 12/23/2023 3:06 AM C DT documented as of this encounter Care Teams Promotional Demonstrator Relationship Specialty Start Date End Date Nakita Falk MD 10 [facility] [address] [address] PCP - General 01/29/17 06/27/17 documented as of this encounter
--- OUTSIDE RECORDS SUMMARY | 2025-03-20 09:41 | XMS_ITS | Referral Summary ---
Author Organization [facility] Address [address] [place] [address] Care Team Providers Care Trust Vault Custodian Name Role Phone Rajesh Connolly MD Unavailable [phone] Rajesh Connolly MD Primary Care Provider + [phone] Nikki Cuellar MD Unavailable Ling Goldsmith MD Unavailable [phone] Felipe Simeon MD Unavailable Encounters Date Type Department Care Team Description 01/20/2025 10:30 AM CDT Office Visit [facility] Floor [address] [place] [id number] Ling Goldsmith MD Malignant neoplasm of upper-outer quadrant of left breast in female, estrogen receptor positive (HCC) (Primary Dx) 01/20/2025 10:38 AM CDT - 01/20/2025 11:59 PM CDT Hospital Encounter [facility] [place] - Breast Imaging [address] [place] [address] Floor [address] [place] [address] Malignant neoplasm of upper-outer quadrant of left [...] mouth daily 90 capsule 3 Active rizatriptan SCREENER OPERATOR (MAXALT-SCREENER OPERATOR) 10 mg disintegrating tabletIndications :Migraine without aura [...] from 05/29/2024:Stage IA(pT1a, pN0(sn), cM0, G1, ER+, OK+, HER2-) - Signed by Nikki Cuellar MD on 06/26/2024 Cough due to RYLEE inhibitor 05/16/2023 Assessment & Plan (05/16/2023 10:35 AM CDT): Resolved with discontinuation of lisinopril at last visit Foot pain, right 05/16/2023 Subacute cough 11/09/2022 Assessment & Plan (11/09/2022 1:03 PM LICENSING REPRESENTATIVE): This may represent a postinfectious cough [...] echocardiogram. Assessment & Plan (11/09/2022 1:02 PM LICENSING REPRESENTATIVE): Isabella 1 positive anti synthetase syndrome [...] 09/16/2020 Assessment & Plan (09/16/2020 12:34 PM LICENSING REPRESENTATIVE): This is a new problem for her. At this time, I recommend simply extension exercises but I have discussed with her percutaneous fasciotomy through Dr. Rosas should this be progressive. We discussed the genetic nature of this. Carpal tunnel syndrome, bilateral 10/22/2019 Overview (10/22/2019): Added automatically from request for surgery [id number] Shoulder pain, right 05/31/2019 Assessment & Plan [...] available. Assessment & Plan (11/09/2022 1:01 PM LICENSING REPRESENTATIVE): No articular symptoms at this time [...] months. Assessment & Plan (09/16/2020 12:34 PM LICENSING REPRESENTATIVE): Well controlled synovitis today. The Dupuytren's contracture is relatively rapidly progressing as was not apparent at last bqck-jy-kxpl visit which was almost a year ago. [...] indicated. Assessment & Plan (10/16/2019 12:03 PM LICENSING REPRESENTATIVE): Longstanding seronegative rheumatoid arthritis presents today [...] She had a recent visit with her mechanic industrial truck that I believe feels she has a [...] methotrexate. Assessment & Plan (10/28/2018 10:26 AM LICENSING REPRESENTATIVE): 58-year-old white female with seronegative rheumatoid [...] Immunization Administration Dates Next Due Influenza, Quadrivalent, Liiana l Culture-based MDCK, Preservative Free, Antibiotic Free, [...] on file Legal Sex Female 7:40 PM LICENSING REPRESENTATIVE Gender Identity Female 02/20/2020 12:23 AM CDT Sexual Orientation Straight 07/08/2024 2: 34 PM CDT Last Filed Vital Signs Vital Sign Reading Time Taken Comments Blood Pressure 114/80 11/13/2024 10:04 AM LICENSING REPRESENTATIVE Pulse 73 11/13/2024 10:04 AM LICENSING REPRESENTATIVE Temperature 36.3 C (97.4 F) 11/13/2024 10:04 AM LICENSING REPRESENTATIVE Respiratory Rate 18 11/13/2024 10:04 AM LICENSING REPRESENTATIVE Oxygen Saturation 97% 11/13/2024 10:04 AM LICENSING REPRESENTATIVE Inhaled Oxygen Concentration - - Weight 94.1 kg (207 lb 6.4 oz) 01/20/2025 10:29 AM CDT Height 172.7 cm (5' 8) 01/20/2025 10:29 AM CDT Body Mass Index 31.54 01/20/2025 10:29 AM CDT Plan of Treatment Not on file Medical Devices Implanted Type Area Public Finance Specialist Device Identifier Shelf Expiration Date Model / Serial / Lot [employer] Marker Tissue Needle Delivery Spiral Capped Seed Radiopaque Artifacts Conservator Stainless Steel Low Nickel Sentimag [id number] - [id number] Implanted:Qty: 1 on 05/23/2024 by Dot Santamaria MD at [facility] Left: Breast [employer] [id number] 06/07/2027 [id number] Procedures Procedure Name Priority Date/Time Associated Diagnosis [...] nal Result from Last 3 Months Insurance [facility] Advance Directives For more information, please contact: [phone] Documents on File Type Date Recorded Patient Manager Agency Expl anation Advance Directives and Livin g Will 05/29/2024 7:19 AM Care Teams Trust Vault Custodian Relationship Specialty Start Date End Date Rajesh Connolly MD [address] [place] [address] PCP - General Internal Medicine 08/13/23 Rajesh Connolly MD Referring Physician Internal Medicine 02/21/19 Nikki Cuellar MD [address] [facility] # [address] LL [address] [place] [address] Radiation Oncologist Radiation Oncology 06/26/24 Ling Goldsmith MD [address] [place] [address] Surgeon Surgical Oncology 06/26/24 Fa'Felipe alcocer MD [address] [facility] [address] DIV [place] [address] Consulting Physician Medical Oncology 06/26/24
--- OUTSIDE RECORDS SUMMARY | 2025-03-20 09:41 | XMS_ITS ---
Author Organization [facility] Address [address] [place] [address] Care Team Providers Care Tankroom Tender Name Role Phone Rajesh Connolly MD Unavailable [phone] Rajesh Connolly MD Primary Care Provider [phone] Nikki Cuellar MD Unavailable Ling Goldsmith MD Unavailable [phone] Felipe Simeon MD Unavailable Active Problems Problem [...] 11/09/2022 Assessment & Plan (11/09/2022 1:03 PM DIRECTOR SALES AND TRADE MARKETING): This may represent a postinfectious cough but [...] echocardiogram. Assessment & Plan (11/09/2022 1:02 PM DIRECTOR SALES AND TRADE MARKETING): Isabella 1 positive anti synthetase syndrome currently [...] 09/16/2020 Assessment & Plan (09/16/2020 12:34 PM DIRECTOR SALES AND TRADE MARKETING): This is a new problem for her. At this time, I recommend simply extension exercises but I have discussed with her percutaneous fasciotomy through Dr. Rosas should this be progressive. We discussed the genetic nature of this. Carpal tunnel syndrome, bilateral 10/22/2019 Overview (10/22/2019): Added automatically from request for surgery [id number] Shoulder pain, right 05/31/2019 Assessment & Plan [...] available. Assessment & Plan (11/09/2022 1:01 PM DIRECTOR SALES AND TRADE MARKETING): No articular symptoms at this time and [...] months. Assessment & Plan (09/16/2020 12:34 PM DIRECTOR SALES AND TRADE MARKETING): Well controlled synovitis today. The Dupuytren's contracture is relatively rapidly progressing as was not apparent at last hoss-rp-sapk visit which was almost a year ago. [...] indicated. Assessment & Plan (10/16/2019 12:03 PM DIRECTOR SALES AND TRADE MARKETING): Longstanding seronegative rheumatoid arthritis presents today with [...] She had a recent visit with her physicist light and optics that I believe feels she has a [...] methotrexate. Assessment & Plan (10/28/2018 10:26 AM DIRECTOR SALES AND TRADE MARKETING): 58-year-old white female with seronegative rheumatoid arthritis [...]
--- OUTSIDE RECORDS SUMMARY | 2025-03-20 09:41 | XMS_ITS | Encounter Summary ---
Author Organization [facility] Address [address] [place] [address] Phone Care Team Providers Care Pool Coordinator Name Role Phone Nakita Falk MD Primary Care Provider [phone] Rajesh Connolly MD Unavailable [phone] Rajesh Connolly MD Primary Care Provider + [phone] Nikki Cuellar MD Unavailable Ling Goldsmith MD Unavailable [phone] Felipe Simeon MD Unavailable Encounter Details Date [...] on file Legal Sex Female 7:40 PM TRAIN STATION SERVER Gender Identity Female 02/20/2020 12:23 AM CDT [...] COVID: Suspected 09/13/2023 09/14/2023 09/14/2023 3:05 AM TRAIN STATION SERVER COVID: Suspected 09/14/2023 09/14/2023 09/14/2023 4:33 PM TRAIN STATION SERVER COVID19 09/14/2023 09/14/2023 09/24/2023 3:05 AM TRAIN STATION SERVER COVID: Recovered Comment:Added based on recent COVID infection. 09/24/2023 10/23/2023 12/23/2023 3:06 AM C DT documented as of this encounter Care Teams Pool Coordinator Relationship Specialty Start Date End Date Nakita Falk MD [address] [facility] [address] [address] [place] [address] PCP - General 02/19/18 08/12/23 Rajesh Connolly MD [address] [place] [address] PCP - General Internal Medicine 08/13/23 Rajesh Connolly MD [address] [facility] [place] [address] Referring Physician Internal Medicine 02/21/19 Nikki Cuellar MD [address] [facility] [address] [place] [address] Radiation Oncologist Radiation Oncology 06/26/24 Ling Goldsmith MD [address] [place] [address] Surgeon Surgical Oncology 06/26/24 Fa'Felipe alcocer MD [address] [facility] [address] [place] [address] Consulting Physician Medical Oncology 06/26/24 documented as of this encounter
--- OUTSIDE RECORDS SUMMARY | 2025-03-20 09:41 | XMS_ITS | Clinical Summary ---
Author Organization [facility] Address [address] [facility] [place] [address] Care Team Providers Care Cloth Bale Header Name Role Phone Rajesh Connolly MD Unavailable [phone] Rajesh Connolly MD Primary Care Provider [phone] Nikki Cuellar MD Unavailable Ling Goldsmith MD Unavailable [phone] Felipe Simeon MD Unavailable Allergies Active Allergy [...] daily 90 capsule 3 024 Active rizatriptan ARBORIST REPRESENTATIVE (MAXALT-ARBORIST REPRESENTATIVE) 10 mg disintegrating tabletIndications :Migraine without aura [...] from 05/29/2024:Stage IA(pT1a, pN0(sn), cM0, G1, ER+, WV+, HER2-) - Signed by Nikki Cuellar MD on 06/26/2024 Cough due to RYLEE inhibitor 05/16/2023 Assessment & Plan (05/16/2023 10:35 AM CDT): Resolved with discontinuation of lisinopril at last visit Foot pain, right 05/16/2023 Subacute cough 11/09/2022 Assessment & Plan (11/09/2022 1:03 PM SHOT GRINDER OPERATOR): This may represent a postinfectious cough [...] echocardiogram. Assessment & Plan (11/09/2022 1:02 PM SHOT GRINDER OPERATOR): Isabella 1 positive anti synthetase syndrome [...] 09/16/2020 Assessment & Plan (09/16/2020 12:34 PM SHOT GRINDER OPERATOR): This is a new problem for her. At this time, I recommend simply extension exercises but I have discussed with her percutaneous fasciotomy through Dr. Rosas should this be progressive. We discussed the genetic nature of this. Carpal tunnel syndrome, bilateral 10/22/2019 Overview (10/22/2019): Added automatically from request for surgery [id number] Shoulder pain, right 05/31/2019 Assessment & Plan [...] available. Assessment & Plan (11/09/2022 1:01 PM SHOT GRINDER OPERATOR): No articular symptoms at this time [...] months. Assessment & Plan (09/16/2020 12:34 PM SHOT GRINDER OPERATOR): Well controlled synovitis today. The Dupuytren's contracture is relatively rapidly progressing as was not apparent at last rwqi-di-vgcb visit which was almost a year ago. [...] indicated. Assessment & Plan (10/16/2019 12:03 PM SHOT GRINDER OPERATOR): Longstanding seronegative rheumatoid arthritis presents today [...] She had a recent visit with her casting house laborer that I believe feels she has [...] methotrexate. Assessment & Plan (10/28/2018 10:26 AM SHOT GRINDER OPERATOR): 58-year-old white female with seronegative rheumatoid [...] - 01/20/2025 11:59 PM CDT Hospital Encounter [facility] Floor [address] [place] [address] Malignant neoplasm of upper-outer quadrant of left breast in female, estrogen receptor positive (HCC) Discharge Disposition: Discharge to home or self care 01/20/2025 10:30 AM CDT Office Visit [facility] [address] [place] [address] Floor [address] [place] [address] Ling Goldsmith MD Malignant neoplasm of upper-outer [...] on file Legal Sex Female 7:40 PM SHOT GRINDER OPERATOR Gender Identity Female 02/20/2020 12:23 AM [...] Comments Blood Pressure 114/80 11/13/2024 10:04 AM SHOT GRINDER OPERATOR Pulse 73 11/13/2024 10:04 AM SHOT GRINDER OPERATOR Temperature 36.3 C (97.4 F) 11/13/2024 10:04 AM SHOT GRINDER OPERATOR Respiratory Rate 18 11/13/2024 10:04 AM SHOT GRINDER OPERATOR Oxygen Saturation 97% 11/13/2024 10:04 AM SHOT GRINDER OPERATOR Inhaled Oxygen Concentration - - Weight [...] 01/20/2026 025 Medical Devices Implanted Type Area Front Office Supervisor Device Identifier Shelf Expiration Date Model / Serial / Lot [employer] Marker Tissue Needle Delivery Spiral Capped Seed Radiopaque Major Assembler Stainless Steel Low Nickel [employer] [id number] - [id number] Implanted:Qty: 1 on 05/23/2024 by Dot Santamaria MD at [facility] Left: Breast [employer] [id number] 06/07/2027 [id number] Procedures Procedure Name Priority Date/Time Associated Diagnosis [...] nal Result from Last 3 Months Insurance [facility] [employer] [place] Advance Directives For more information, please contact: [phone] Documents on File Type Date Recorded Patient Barrow Worker Expl anation Advance Directives and Livin g Will 05/29/2024 7:19 AM Care Teams Cloth Bale Header Relationship Specialty Start Date End Date Rajesh Connolly MD [address] [place] [address] PCP - General Internal Medicine 08/13/23 Rajesh Connolly MD Referring Physician Internal Medicine 02/21/19 Nikki Cuellar MD [address] [facility] [address] [place] [address] Radiation Oncologist Radiation Oncology 06/26/24 Ling Goldsmith MD [address] [place] [address] Surgeon Surgical Oncology 06/26/24 Fa'Felipe alcocer MD [address] [facility] [address] [place] [address] Consulting Physician Medical Oncology 06/26/24
--- OUTSIDE RECORDS SUMMARY | 2025-03-20 09:42 | XMS_ITS | Encounter Summary ---
Author Organization [facility] Address [address] [place] [address] Phone Care Team Providers Care Cyber Security Name Role Phone Nakita Falk MD Primary Care Provider [phone] Rajesh Connolly MD Unavailable [phone] Rajesh Connolly MD Primary Care Provider + [phone] Nikki Cuellar MD Unavailable Ling Goldsmith MD Unavailable [phone] Felipe Simeon MD Unavailable Encounter Details Date [...] on file Legal Sex Female 7:40 PM FERTILIZER SUPERVISOR Gender Identity Female 02/20/2020 12:23 AM [...] COVID: Suspected 09/13/2023 09/14/2023 09/14/2023 3:05 AM FERTILIZER SUPERVISOR COVID: Suspected 09/14/2023 09/14/2023 09/14/2023 4:33 PM FERTILIZER SUPERVISOR COVID19 09/14/2023 09/14/2023 09/24/2023 3:05 AM FERTILIZER SUPERVISOR COVID: Recovered Comment:Added based on recent COVID infection. 09/24/2023 10/23/2023 12/23/2023 3:06 AM C DT documented as of this encounter Care Teams Cyber Security Relationship Specialty Start Date End Date Nakita Falk MD [address] [place] [address] PCP - General 02/19/18 08/12/23 Rajesh Connolly MD [address] [place] [address] PCP - General Internal Medicine 08/13/23 Rajesh Connolly MD [address] [place] [address] Referring Physician Internal Medicine 02/21/19 Nikki Cuellar MD [address] [facility] [address] [place] [address] Radiation Oncologist Radiation Oncology 06/26/24 Ling Goldsmith MD [address] [place] [address] Surgeon Surgical Oncology 06/26/24 Fa'Felipe alcocer MD [address] [facility] [address] [place] [address] Consulting Physician Medical Oncology 06/26/24 documented as of this encounter
--- OUTSIDE RECORDS SUMMARY | 2025-03-20 09:42 | XMS_ITS | Encounter Summary ---
Author Organization [facility] Address [address] [place] [address] Phone Care Team Providers Care Brake Operator Helper Name Role Phone Nakita Falk MD Primary Care Provider [phone] Rajesh Connolly MD Unavailable [phone] Rajesh Connolly MD Primary Care Provider + [phone] Nikki Cuellar MD Unavailable Ling Goldsmith MD Unavailable [phone] Felipe Simeon MD Unavailable Encounter Details Date [...] on file Legal Sex Female 7:40 PM GARBAGE COLLECTOR SUPERVISOR Gender Identity Female 02/20/2020 12:23 AM [...] COVID: Suspected 09/13/2023 09/14/2023 09/14/2023 3:05 AM GARBAGE COLLECTOR SUPERVISOR COVID: Suspected 09/14/2023 09/14/2023 09/14/2023 4:33 PM GARBAGE COLLECTOR SUPERVISOR COVID19 09/14/2023 09/14/2023 09/24/2023 3:05 AM GARBAGE COLLECTOR SUPERVISOR COVID: Recovered Comment:Added based on recent COVID infection. 09/24/2023 10/23/2023 12/23/2023 3:06 AM C DT documented as of this encounter Care Teams Brake Operator Helper Relationship Specialty Start Date End Date Nakita Falk MD [address] [place] [address] PCP - General 02/19/18 08/12/23 Rajesh Connolly MD [address] [place] [address] PCP - General Internal Medicine 08/13/23 Rajesh Connolly MD [address] [place] [address] Referring Physician Internal Medicine 02/21/19 Nikki Cuellar MD [address] [facility] [address] [place] [address] Radiation Oncologist Radiation Oncology 06/26/24 Ling Goldsmith MD [address] [place] [address] Surgeon Surgical Oncology 06/26/24 Fa'Felipe alcocer MD [address] [facility] [address] [place] [address] Consulting Physician Medical Oncology 06/26/24 documented as of this encounter
== END 2025-03-20 09:36 | disposition home or self-care (01) ==
PROVIDERS: PCP Internal Medicine; Visit Provider Internal Medicine
DX: J84.9 Interstitial pulmonary disease, unspecified (principal); R05.9 Cough, unspecified
CPT/HCPCS: 71250

== ENCOUNTER 2025-08-21 11:22 | Outpatient (CLI) | payer BC, SELFPAY ==
[2025-08-21 11:32] LABS: Hematocrit 35.9 % (35.0-49.0); Hemoglobin 12.0 g/dL (12.0-15.0); Mean Corpuscular HGB Conc 33.4 g/dL (32-36); Mean Corpuscular Hemoglobin 32.1 pg (27.0-31.0); Mean Corpuscular Volume 96.0 fL (78.0-102.0); Platelet Count Result 216 K/mm3 (150-420); Red Blood Count 3.74 M/mm3 (4.20-5.40); White Blood Count 8.8 K/mm3 (4.8-10.8)
[2025-08-21 11:36] LABS: Add Urine Microscopic? YES; Appearance Urine Clear (Clear); Glucose Urine UA Negative (Negative); Leukocyte Esterase Ur 1+ (Negative); Nitrate Urine Negative (Negative); Specific Grav Ur 1.010 (1.010-1.020)
[2025-08-21 11:45] LABS: Hemoglobin A1C 5.3 % (<5.7)
[2025-08-21 11:50] LABS: Alanine Aminotransferase 19 U/L (6-35); Albumin Level 4.3 g/dL (3.5-5.1); Alkaline Phosphatase 49 U/L (38-126); Anion Gap 9 mmol/L (4-12); Aspartate Amino Transferase 31 U/L (14-36); Blood Urea Nitrogen 11 mg/dL (7-17); Calcium 8.9 mg/dL (8.4-10.2); Carbon Dioxide 29 mmol/L (22-30); Chloride 105 mmol/L (98-107); Cholesterol 161 mg/dL (0-200); Creatine Kinase 99 U/L (30-135); Estimated Glomerular Filt Rate > 60; Glucose 93 mg/dL (65-110); HDL Direct 59 mg/dL; Osmolality Calculated 295 mOsm/kg (285-295); Potassium 3.6 mmol/L (3.4-5.0); Sodium 143 mmol/L (137-145); Total Protein 6.6 g/dL (6.3-8.2); Triglycerides 131 mg/dL (<150)
[2025-08-25 13:50] LABS: Bilirubin,Total 0.6 mg/dL (0.2-1.3)
== END 2025-08-21 11:23 | disposition home or self-care (01) ==
LOC: CHSLAB 11:23
PROVIDERS: PCP Internal Medicine; Visit Provider Internal Medicine
DX: I10 Essential (primary) hypertension (principal); E11.9 Type 2 diabetes mellitus without complications; E78.2 Mixed hyperlipidemia; K27.7 Chronic peptic ulcer, site unspecified, without hemorrhage or perforation
CPT/HCPCS: 36415; 80053; 80061; 81001; 82550; 83036; 85027

== ENCOUNTER 2025-09-07 12:09 | Outpatient (CLI) | payer MEDICARE, SELFPAY ==
--- OUTSIDE RECORDS SUMMARY | 2015-08-18 | XMS_ITS | Encounter Summary ---
Author Organization [facility] Healthcare Address [address] [place] [address] Care Team Providers Care Senior Interactive Producer Name Role Phone Unavailable Primary Care Provider Unavailabl e Reason for Visit * Diagnostic Imaging (Routine) - Closed Specialty Diagnoses / Procedures Referred By Kirsten t Referred To Contact Procedures Breast Imaging Screening Outside Reference Transcribed Order, Provider Referral ID Status Reason Start Date Expiration Date Visits Re quested Visits Authorized [id number] Closed 05/15/2024 06/14/2025 1 1 Encounter Details Date Type Department Care Team (Late st Contact Info) Description 08/18/2015 Hospital Encounter [facility] [address] [place] [address] Social History Tobacco Use Types Packs/Day Years Used Date Smoking Tobacco: Former Cigarettes Smokeless Tobacco: Never Comments:in college Alcohol Use Standard Drinks/Week Comments Yes 1 (1 standard drink = 0.6 oz pur e alcohol) AUDIT-C Answer Date Recorded Q1: How often do you have a drink containing alcohol? Never 06/26/2024 Q2: How many drinks containi ng alcohol do you have on a typical day when you are drinking? Patient does not drink Q3: How often do you have si x or more drinks on one occasion? Never 06/26/2024 Personal Safety Answer Date Recorded Have you ever been in or are you currently in a harmful physical or emotional relationship or is someone making you feel afraid or unsafe? Denies 05/29/2024 Comments No Sex and Gender Information Value Date Recorded Sex Assigned at Not on file Legal Sex Female 7:40 PM ELECTRICAL CONSTRUCTION PROJECT MANAGER Gender Identity Female 02/20/2020 12:23 AM CDT Sexual Orientation Straight 07/08/2024 2: 34 PM CDT documented as of this encounter Functional Status * In the past year, patient experienced: Question Answer Date of Assessment Author One or more falls in the las t year 0 06/26/2024 9:07 AM Abbey Delgadillo RN Has trouble stepping up onto a curb 0 06/26/2024 9:07 AM Abbey Delgadillo RN Advised to use a cane or wal ker to get around safely 0 06/26/2024 9:07 AM Abbey Delgadillo RN Often has to juan to the toilet 0 9:07 AM Abbey Delgadillo RN Feels unsteady when walking 0 06/26/2024 9: 07 AM Abbey Delgadillo RN Has lost some feeling in feet 0 06/26/2024 9:07 AM Abbey Delgadillo RN Steadies self on furniture w hile walking at home 0 06/26/2024 9:07 AM Abbey Delgadillo RN Takes medicine that makes him/her feel lightheaded or more tired than usual 0 06/26/2024 9:07 AM Abbey Delgadillo RN Worried about falling 0 06/26/2024 9:07 AM Abbey Delgadillo RN Takes medicine to sleep or improve mood 1 06/26/2024 9:07 AM Abbey Delgadillo RN Needs to push with hands whe n rising from a chair 0 06/26/2024 9:07 AM Abbey Delgadillo RN Often feels sad or depressed 0 06/26/2024 9 :07 AM Abbey Delgadillo RN STEADI Score Total 1 06/26/2024 9:07 AM Abbey Delgadillo RN * Question Answer Date of Assessment Author BP Method Automatic 11/05/2019 10:03 AM Cristina Cr RN MAP (mmHg) 78 05/29/2024 10:50 AM CDT Alesha Alexander RN * [place] Fall Risk Question Answer Date of Assessment Author History of Falling 0 05/29/2024 7:39 AM CORIT Brenna Martinez, CELENA Secondary Diagnosis 15 05/29/2024 7:39 AM Brenna Herrera RN Ambulatory Aids 0 05/29/2024 7:39 AM CDT Co Brenna greene RN Intravenous Therapy/Heparin/Saline Lock 0 05/29/2024 7:39 AM CDT Leobardo Martinez RN Gait/Transferring 0 05/29/2024 7:39 AM CORIT Brenna Martinez RN Mental Status 0 05/29/2024 7:39 AM CDT Brenna Degroot RN [place] Fall Risk Score (Score >= 45 places fall precaution order) 15 05/29/2024 7:39 AM CDT Brenna Martinez RN Prior Fall Event (Autopopulated from EMR) None found 05/29/2024 7:39 AM CDT Nish Martinez RN * He Scale Question Answer Date of Assessment Author Sensory Perceptions 4 11/05/2019 10:45 AM Cristina Angel RN Moisture 4 11/05/2019 10:45 AM Cristina Cr RN Activity 4 11/05/2019 10:45 AM Cristina Cr RN Mobility 4 11/05/2019 10:45 AM Cristina Cr RN Nutrition 3 11/05/2019 10:45 AM Cristina Cr RN Friction and Shear 3 11/05/2019 10:45 AM Cristina Ayoub RN He Scale Score 22 11/05/2019 10:45 AM Cristina Ayoub RN * Question Answer Date of Assessment Author BP Location Left arm 06/03/2025 12:36 PM CDT Carline De La Rosa CMA * Fall Risk Interventions Question Answer Date of Assessment Author All Low Fall Interventions Applied Yes 11/05/2019 10:03 AM Cristina Middleton RN All Moderate Fall Interventions Applied No 11/05/2019 10:03 AM Cristina Middleton RN All Moderate Fall Risk Interventions EXCEPT: Fall risk sign with education;Fall risk armband;Gait belt at bedside;PT eval requested or obtained;OT eval requested or obtained 11/05/2019 10:03 AM Cristina iMddleton RN All High Fall Risk Interventions Applied No 11/05/2019 10:03 AM Cristina Middleton RN All High Risk Interventions EXCEPT: Bed alarm;Chair alarm;Fall risk sign with education 11/05/2019 10:03 AM Cristina Middleton RN Reason For Exception(s) pacu 11/05/19 10:03 AM Cristina Middleton RN Reason For Exception(s) pacu 11/05/19 10:03 AM Cristina Middleton RN * Alcohol Withdrawal BP Hierarchy Answer Date of Assessment Author 89 07/06/2023 10:08 AM CDT Celina Ceja RMA * AUDIT-C Score Answer Date of Assessment Author 0 06/26/2024 9:09 AM Moriah Delgadillo RN * Alcohol Use Question Answer Date of Assessment Author Q1: How often do you have a drink containing alcohol? Never 06/26/2024 9:09 AM Abbey Delgadillo RN Q2: How many drinks containing alcohol do you have on a typical day when you are drinking? Patient does not drink 06/26/2024 9:09 AM Abbey Delgadillo RN Q3: How often do you have six or more drinks on one occasion? Never 06/26/2024 9:09 AM Abbey Delgadillo RN * Integumentary Question Answer Date of Assessment Author Skin Integrity Surgical incision 05/29/2024 10:20 AM Alesha Haywood, CELENA Integumentary (WDL) X 05/29/2024 10:20 AM Alesha Haywood RN Skin Location L breast 05/29/2024 10:20 AM CDT Alesha Alex res, RN * He Scale Question Answer Date of Assessment Author He Scale Used He 11/05/2019 10:03 AM Cristina Middleton RN * Question Answer Date of Assessment Author BP Method Automatic 11/05/2019 10:03 AM Cristina Cr RN * Question Answer Date of Assessment Author BP Location Left arm 06/03/2025 12:36 PM CDT Carline De La Rosa CMA * Question Answer Date of Assessment Author Bed In Lowest Position Yes 11/05/2019 10:03 A M Cristina Middleton RN Bed Wheels Locked Yes 11/05/2019 10:03 AM Cristina Middleton RN * Fall Risk Interventions Question Answer Date of Assessment Author All Low Fall Interventions Applied Yes 11/05/2019 10:03 AM Cristina Middleton RN All Moderate Fall Interventions Applied No 11/05/2019 10:03 AM Cristina Middleton RN All Moderate Fall Risk Interventions EXCEPT: Fall risk sign with education;Fall risk armband;Gait belt at bedside;PT eval requested or obtained;OT eval requested or obtained 11/05/2019 10:03 AM Cristina Middleton RN All High Fall Risk Interventions Applied No 11/05/2019 10:03 AM Cristina Middleton RN All High Risk Interventions EXCEPT: Bed alarm;Chair alarm;Fall risk sign with education 11/05/2019 10:03 AM Cristina Middleton RN Reason For Exception(s) pacu 11/05/19 10:03 AM Cristina Middleton RN Reason For Exception(s) pacu 11/05/19 10:03 AM Cristina Middleton RN * ADL Screening Question Answer Date of Assessment Author Hearing - Right Ear Functional 05/21/2024 2:00 PM CD T Dania Piper, CELENA Hearing - Left Ear Functional 05/21/2024 2:00 PM Dania Pagan, RN * Assistive Devices Question Answer Date of Assessment Author Assistive Devices/DME Eyeglasses;Contacts 05/21/2024 2 :00 PM CDT Dania Piper, CELENA documented as of this encounter Mental Status * Question Answer Entry Date Author Neuro (WDL) [facility] 11/05/2019 7:18 AM ELECTRICAL CONSTRUCTION PROJECT MANAGER Samantha Irwin RN * Question Answer Entry Date Author Level of Consciousness Drowsy;Responds t o voice 05/29/2024 9:46 AM CDT Alesha Fletcher RN Orientation Oriented to person;Oriented to place;Oriented to situation 05/29/2024 9:46 AM CDT Alesha Fletcher RN Neuro ([facility]) [facility] 05/29/2024 10:20 AM CDT Alesha Fletcher RN documented in this encounter Plan of Treatment Not on file documented as of this encounter Procedures Procedure Name Priority Date/Time Associated Diagnosis Comments BREAST IMAGING MG SCREENING OUTSIDE REFERENCE Routine 08/18/2015 12:00 AM ELECTRICAL CONSTRUCTION PROJECT MANAGER documented in this encounter Results * Breast Imaging Screening Outside Reference (08/18/2015 12:00 AM ELECTRICAL CONSTRUCTION PROJECT MANAGER) Impressions [facility] - 05/15/2024 12:42 PM CDT These images are for Reference purposes only and have not been reviewed by [facility] Radiology. There will be no report generated by a [facility] Radiologist. Narrative [facility] - 05/15/2024 12:42 PM CDT EXAMINATION: Images For Reference Purposes Only us Provider Transcribed Order IMG MAMMO PROCEDURES Final Result [facility] documented in this encounter Visit Diagnoses Not on filedocumented in this encounter Additional Health Concerns Infection Onset Date Last Indicated Resolved Time COVID: Suspected 07/06/2023 07/06/2023 07/06/2023 2:45 PM CDT Rhino/Enterovirus 07/06/2023 07/06/2023 07/13/2023 3:05 AM CDT COVID: Suspected 09/13/2023 09/14/2023 09/14/2023 3:05 AM ELECTRICAL CONSTRUCTION PROJECT MANAGER COVID: Suspected 09/14/2023 09/14/2023 09/14/2023 4:33 PM ELECTRICAL CONSTRUCTION PROJECT MANAGER COVID19 09/14/2023 09/14/2023 09/24/2023 3:05 AM ELECTRICAL CONSTRUCTION PROJECT MANAGER COVID: Recovered Comment:Added based on recent COVID infection. 09/24/2023 10/23/2023 12/23/2023 3:06 AM C DT documented as of this encounter
--- OUTSIDE RECORDS SUMMARY | 2017-05-13 23:00 | XMS_ITS | Encounter Summary ---
Author Organization [facility] Healthcare Address [address] [place] [address] Care Team Providers Care Larry Operator Name Role Phone Nakita Falk MD Primary Care Provider [phone] Reason for Visit * Diagnostic Imaging (Routine) - Closed Specialty Diagnoses / Procedures Referred By Contac t Referred To Contact Procedures Breast Imaging Screening Outside Reference Transcribed Order, Provider Referral ID Status Reason Start Date Expiration Date Visits Re quested Visits Authorized [id number] Closed 05/15/2024 06/14/2025 1 1 Encounter Details Date Type Department Care Team (Late st Contact Info) Description 05/14/2017 Hospital Encounter [facility] [address] [place] [id number] Social History Tobacco Use Types Packs/Day Years [...] on file Legal Sex Female 7:40 PM CHIEF I DISPATCHER Gender Identity Female 02/20/2020 12:23 AM CDT [...] 10:50 AM CDT Alesha Alexander RN * [place] Fall Risk Question Answer Date of Assessment Author History of Falling 0 05/29/2024 7:39 AM CDT Brenna Martinez RN Secondary Diagnosis 15 05/29/2024 7:39 AM CD Brenna Lim RN Ambulatory Aids 0 05/29/2024 7:39 AM CDT Co Brenna greene RN Intravenous Therapy/Heparin/Saline Lock 0 05/29/2024 7:39 AM CDT Leobardo Martinez RN Gait/Transferring 0 05/29/2024 7:39 AM CDT Brenna Martinez RN Mental Status 0 05/29/2024 [...] BP Location Left arm 06/03/2025 12:36 PM Carline Galindo CMA * Fall Risk Interventions Question Answer [...] Integrity Surgical incision 05/29/2024 10:20 AM Alesha Haywood RN Integumentary (WDL) X 05/29/2024 10:20 AM Alesha [...] Fall Interventions Applied Yes 11/05/2019 10:03 AM Cirstina Middleton RN All Moderate Fall Interventions Applied [...] Right Ear Functional 05/21/2024 2:00 PM CD Dania Diop, CELENA Hearing - Left Ear Functional 05/21/2024 2:00 PM Dania Pagan, CELENA * Assistive Devices Question Answer Date of Assessment Author Assistive Devices/DME Eyeglasses;Contacts 05/21/2024 2 :00 PM CDT Dania Piper, CELENA documented as of this encounter Mental Status * Question Answer Entry Date Author Neuro ([facility]) [facility] 11/05/2019 7:18 AM CHIEF I DISPATCHER Samantha Irwin RN * Question Answer Entry Date Author Level of Consciousness Drowsy;Responds t o voice 05/29/2024 9:46 AM CDT Alesha Fletcher RN Orientation Oriented to person;Oriented to place;Oriented to situation 05/29/2024 9:46 AM CDT Alesha Fletcher RN Neuro ([facility]) [facility] 05/29/2024 10:20 AM CDT Alesha Fletcher RN documented in this encounter Plan of Treatment Not on file documented as of this encounter Procedures Procedure Name Priority Date/Time Associated Diagnosis Comments BREAST IMAGING MG SCREENING OUTSIDE REFERENCE Routine 05/14/2017 12:00 AM CDT documented in this encounter Results * Breast Imaging Screening Outside Reference (05/14/2017 12:00 AM CDT) Impressions [facility] - 05/15/2024 12:42 PM CDT These images are for Reference purposes only and have not been reviewed by [facility] Radiology. There will be no report generated by a [facility] Radiologist. Narrative [facility] - 05/15/2024 12:42 [...] COVID: Suspected 09/13/2023 09/14/2023 09/14/2023 3:05 AM CHIEF I DISPATCHER COVID: Suspected 09/14/2023 09/14/2023 09/14/2023 4:33 PM CHIEF I DISPATCHER COVID19 09/14/2023 09/14/2023 09/24/2023 3:05 AM CHIEF I DISPATCHER COVID: Recovered Comment:Added based on recent COVID infection. 09/24/2023 10/23/2023 12/23/2023 3:06 AM C DT documented as of this encounter Care Teams Larry Operator Relationship Specialty Start Date End Date Nakita Falk MD [address] [place] [address] PCP - General 01/29/17 06/27/17 documented as of this encounter
--- OUTSIDE RECORDS SUMMARY | 2018-09-11 | XMS_ITS | Encounter Summary ---
Author Organization [facility] Healthcare Address [address] [place] [address] Care Team Providers Care Hospice Office Coordinator Name Role Phone Nakita Falk MD Primary Care Provider [phone] Reason for Visit * Diagnostic Imaging (Routine) - Closed Specialty Diagnoses / Procedures Referred By Contac t Referred To Contact Procedures Breast Imaging Screening Outside Reference Transcribed Order, Provider Referral ID Status Reason Start Date Expiration Date Visits Re quested Visits Authorized [id number] Closed 05/15/2024 06/14/2025 1 1 Encounter Details Date Type Department Care Team (Late st Contact Info) Description 09/11/2018 Hospital Encounter [facility] [address] [place] [id number] Social History Tobacco Use Types Packs/Day [...] on file Legal Sex Female 7:40 PM SITE PROMOTION AGENT Gender Identity Female 02/20/2020 12:23 AM CDT [...] * Question Answer Entry Date Author Neuro ([facility]) [facility] 11/05/2019 7:18 AM SITE PROMOTION AGENT Samantha Irwin RN * Question Answer Entry Date Author Level of Consciousness Drowsy;Responds t o voice 05/29/2024 9:46 AM CDT Alesha Fletcher RN Orientation Oriented to person;Oriented to place;Oriented to situation 05/29/2024 9:46 AM CDT Alesha Fletcher RN Neuro ([facility]) [facility] 05/29/2024 10:20 AM CDT Alesha Fletcher RN documented in this encounter Plan of Treatment Not on file documented as of this encounter Procedures Procedure Name Priority Date/Time Associated Diagnosis Comments BREAST IMAGING MG SCREENING OUTSIDE REFERENCE Routine 09/11/2018 12:00 AM SITE PROMOTION AGENT documented in this encounter Results * Breast Imaging Screening Outside Reference (09/11/2018 12:00 AM SITE PROMOTION AGENT) Impressions [facility] - 05/15/2024 12:42 PM CDT These images are for Reference purposes only and have not been reviewed by [facility] Radiology. There will be no report generated by a [facility] Radiologist. Narrative [facility] - 05/15/2024 12:42 [...] 07/13/2023 3:05 AM CDT COVID: Suspected 09/13/2023 09/14/202309/14/2023 3:05 AM SITE PROMOTION AGENT COVID: Suspected 09/14/2023 09/14/2023 09/14/2023 4:33 PM SITE PROMOTION AGENT COVID19 09/14/2023 09/14/2023 09/24/2023 3:05 AM SITE PROMOTION AGENT COVID: Recovered Comment:Added based on recent COVID infection. 09/24/2023 10/23/2023 12/23/2023 3:06 AM C DT documented as of this encounter Care Teams Hospice Office Coordinator Relationship Specialty Start Date End Date Nakita Falk MD [address] [facility] [address] [address] [place] [address] PCP - General 02/19/18 08/12/23 documented as of this encounter
--- NOTE | ~2025-09-07 | CT_ITS ---
EXAMINATION: CT abdomen pelvis wo con DATE: 09/07/2025 12:53 INDICATION: Right flank pain and hematuria. TECHNIQUE: Computed tomography (CT) of the abdomen and pelvis was performed without intravenous contrast. The dose-length product was 202.94 mGy-cm. Automated exposure control and iterative reconstruction technique were employed. COMPARISON: CT chest dated 03/20/2025 FINDINGS: There is extensive chronic interstitial lung disease of the lung periphery with interlobular septal thickening and areas of bronchiectasis. There is a partially visualized pleural-based mass right lower lobe which is unchanged from prior examination, most likely scarring. The liver, spleen, pancreas, adrenal glands are unremarkable. There are nonobstructing bilateral renal stones. There are multiple distal right ureteral stones without significant hydronephrosis. Bladder is relatively decompressed. No left ureteral stones identified. Colonic diverticulosis without evidence for diverticulitis. Gallbladder is distended. Nonobstructive bowel gas pattern. No significant vascular abnormality. Mild lower thoracic and lumbar spondylosis. No acute osseous abnormality. IMPRESSION: 1. Multiple nonobstructing distal right ureteral stones near the UVJ. No significant hydronephrosis. 2: Nonobstructing bilateral nephrolithiasis. 3: Chronic interstitial lung disease with bronchiectasis. Reviewed, dictated and finalized at location I. LA TAPPER HELPER IMPRESSION: 1. Multiple nonobstructing distal right ureteral stones near the UVJ. No signif icant hydronephrosis. 2: Nonobstructing bilateral nephrolithiasis. 3: Chronic interstitial lung disease with bronchiectasis.
[2025-09-07 12:45] LABS: Hematocrit 37.0 % (35.0-49.0); Hemoglobin 12.3 g/dL (12.0-15.0); Mean Corpuscular HGB Conc 33.2 g/dL (32-36); Mean Corpuscular Hemoglobin 31.8 pg (27.0-31.0); Mean Corpuscular Volume 95.6 fL (78.0-102.0); Platelet Count Result 254 K/mm3 (150-420); Red Blood Count 3.87 M/mm3 (4.20-5.40); White Blood Count 8.2 K/mm3 (4.8-10.8)
[2025-09-07 13:00] LABS: Anion Gap 8 mmol/L (4-12); Blood Urea Nitrogen 8 mg/dL (7-17); Calcium 8.9 mg/dL (8.4-10.2); Carbon Dioxide 30 mmol/L (22-30); Chloride 105 mmol/L (98-107); Estimated Glomerular Filt Rate > 60; Glucose 93 mg/dL (65-110); Osmolality Calculated 294 mOsm/kg (285-295); Potassium 3.6 mmol/L (3.4-5.0); Sodium 143 mmol/L (137-145)
--- OUTSIDE RECORDS SUMMARY | 2025-09-07 13:29 | XMS_ITS | Clinical Summary ---
Author Organization [facility] Address [address] [place] [address] Care Team Providers Care Filter Tank Tender Helper Name Role Phone Rajesh Connolly MD Unavailable [phone] Rajesh Connolly MD Primary Care Provider [phone] Nikki Cuellar MD Unavailable Ling Goldsmith MD Unavailable Felipe Simeon MD Unavailable Jesus Romero MD Unavailable [phone] DeckVanessa NP Unavailable [phone] Allergies Active Allergy Reactions Criticality Noted Date Comments Levofloxacin Other (See comments) High 11/09/2022 Passing out Brain Fog Light headed Sick Medications atorvastatin (LIPITOR) 10 mg tabletIndications :hyperlipidemia Take 1 tablet (10 mg total) by mouth nightly Patient takes only as needed. 019 Active aspirin 325 mg tabletIndications :prevention Take 1 tablet (325 mg total) by mouth once a week Active SUMAtriptan succinate 4 mg/0.5 mL cartridgeIndicati ons:Migraine Inject 4mg SC at onset of headache. May repeat after 1 hr if needed. Max 12mg in 24 hrs. 12 mL 3 023 Active montelukast (SINGULAIR) 10 mg tabletIndications :Seasonal Allergic Rhinitis Take 1 tablet (10 mg total) by mouth every evening Active losartan-hydroCHL OROthiazide (HYZAAR) 100-12.5 mg per tabletIndications :hypertension Take 1 tablet by mouth every morning Active cannabidiol, CBD, (medical cannabis) each Take 1 Dose by mouth as needed (migraines) Active traZODone (DESYREL) 100 mg tabletIndications :insomnia associated with depression Take 1 tablet (100 mg total) by mouth nightly 30 tablet 11 025 2025 Active cetirizine (ZyrTEC) 10 mg tablet Take 1 tablet (10 mg total) by mouth daily Active guaiFENesin-codei ne (GUAITUSS AC) liquid 100-10 mg/5 mL TAKE 10 ML BY MOUTH EVERY 4 TO 6 HOURS NEEDED FOR COUGH FOR 5 DAYS Active fluticasone propionate (FLONASE) 50 mcg/actuation nasal spray SPRAY 1-2 SPRAYS INTO EACH NOSTRIL ONCE DAILY NEEDED Active calcium carbonate-vitamin D3 1,250mg (500mg elemental) - 5 mcg (200 units) per tabletIndications :Vitamin D deficiency,Osteop enia, unspecified location Take 1 tablet by mouth 2 (two) times a day with meals 60 tablet 2025 Active potassium chloride ER 10 mEq CR tablet Take 1 tablet/capsule (10 mEq total) by mouth Active albuterol HFA (PROVENTIL HFA,VENTOLIN HFA,PROAIR HFA) 90 mcg/actuation inhalerIndication s:Chronic Obstructive Pulmonary Disease Inhale 2 puffs every 6 (six) hours as needed for wheezing 1 each 2025 Active anastrozole (ARIMIDEX) 1 mg tablet Take 1 tablet (1 mg total) by mouth daily 90 tablet 1 025 Active tofacitinib (Xeljanz XR) 11 mg Take 1 tablet (11 mg total) by mouth daily 90 tablet 025 Active TIRZEPATIDE SUBQ Inject under the skin Active rizatriptan INSTRUCTOR PRODUCT INSPECTION (MAXALT-INSTRUCTOR PRODUCT INSPECTION) 10 mg disintegrating tabletIndications :Migraine without aura and without status migrainosus, not intractable Take 1 tablet (10 mg total) by mouth once as needed for migraine May repeat in 2 hours if unresolved. Do not exceed 30 mg in 24 hours. 9 tablet 11 025 Active propranolol LA (INDERAL LA) 80 mg 24 hr capsuleIndication s:Migraine without aura and without status migrainosus, not intractable Take 1 capsule (80 mg total) by mouth daily 90 capsule 3 025 Active promethazine (PHENERGAN) 25 mg tabletIndications :Migraine without aura and without status migrainosus, not intractable Take 1 tablet (25 mg total) by mouth every 6 (six) hours as needed for nausea or vomiting [address] (CYMBALTA) 60 mg capsuleIndication s:Migraine without aura and without status migrainosus, not intractable Take 1 capsule (60 mg total) by mouth daily 90 capsule 3 025 Active ketorolac (TORADOL) 10 mg tabletIndications :Migraine without aura and without status migrainosus, not intractable Take 1 tab po q 6 hr prn migraine. Do not exceed 3 in 24 hrs, do not take more than 2 consecutive days. 20 tablet 1 025 Active ketorolac (TORADOL) 10 mg tabletIndications :Migraine without aura and without status migrainosus, not intractable Take 1 tab po q 6 hr prn migraine. Do not exceed 3 in 24 hrs, do not take more than 2 consecutive days. 20 tablet 1 023 2024 Discontinued(R eorder) promethazine (PHENERGAN) 25 mg tabletIndications :Migraine without aura and without status migrainosus, not intractable Take 1 tablet (25 mg total) by mouth every 6 (six) hours as needed for nausea or vomiting 60 tablet 023 2024 Discontinued(R eorder) propranolol LA (INDERAL LA) 80 mg 24 hr capsuleIndication s:Migraine without aura and without status migrainosus, not intractable Take 1 capsule (80 mg total) by mouth daily 90 capsule 3 024 2024 Discontinued(R eorder) rizatriptan INSTRUCTOR PRODUCT INSPECTION (MAXALT-INSTRUCTOR PRODUCT INSPECTION) 10 mg disintegrating tabletIndications :Migraine without aura and without status migrainosus, not intractable Take 1 tablet (10 mg total) by mouth once as needed for migraine May repeat in 2 hours if unresolved. Do not exceed 30 mg in 24 hours. 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 Romero's evaluation. We will continue to maintain on Xeljanz. I reviewed her pulmonary function tests which are stable and await echocardiogram. Assessment & Plan (11/09/2022 1:02 PM RIVET SPINNER): Isabella 1 positive anti synthetase syndrome currently [...] immunosuppression unless there is evidence of progression Pure hypercholesterolemia 09/22/2021 Dupuytren's contracture of both hands 09/16/2020 Assessment & Plan (09/16/2020 12:34 PM RIVET SPINNER): This is a new problem for her. At this time, I recommend simply extension exercises but I have discussed with her percutaneous fasciotomy through Dr. Rosas should this be progressive. We discussed the genetic nature of this. Carpal tunnel syndrome, bilateral 10/22/2019 Overview (10/22/2019): Added automatically from request for surgery [id number] Hypertension 02/14/2018 Assessment & Plan (05/23/2018 3:02 PM CDT): Hypertension is improving with treatment. Continue current treatment regimen. Blood pressure will be reassessed With primary care physician and at our next visit. Osteopenia 09/27/2017 Osteoarthritis of lumbar spine 01/18/2016 Trochanteric bursitis 01/18/2016 Anxiety 01/31/2011 Insomnia 10/01/2010 Rheumatoid arthritis [...] available. Assessment & Plan (11/09/2022 1:01 PM RIVET SPINNER): No articular symptoms at this time and [...] months. Assessment & Plan (09/16/2020 12:34 PM RIVET SPINNER): Well controlled synovitis today. The Dupuytren's contracture is relatively rapidly progressing as was not apparent at last [facility] visit which was almost a year ago. [...] indicated. 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 Assessment & Plan (10/28/2018 10:26 AM RIVET SPINNER): 58-year-old white female with seronegative rheumatoid arthritis [...] 6 months Common migraine without aura 01/18/2010 Resolved Problems Problem Noted Date Diagnosed Date Resolved Date Foot pain, right 05/16/2023 03/27/2025 Subacute cough 11/09/2022 03/27/2025 Assessment & Plan (11/09/2022 1:03 PM RIVET SPINNER): This may represent a postinfectious cough but [...] long-term follow-up with me of her ILD. Abnormal chest CT 03/30/2022 03/27/2025 Shoulder pain, right 05/31/2019 06/ 025 Assessment & Plan (05/31/2019 5:43 AM CDT): Status post intra-articular injection today; if no improvement, I recommend radiographs and assessment of the rotator cuff. High risk medication use 01/18/2016 Encounters Date Type Department Care Team Description 08/24/2025 9:30 AM RIVET SPINNER Telemedicine [facility] Medicine General Neurology [address] [place] [id number] Kristina Fagan PA Migraine without aura and without status migrainosus, not intractable 08/10/2025 6:50 AM RIVET SPINNER - 08/10/2025 11:59 PM RIVET SPINNER Hospital Encounter [facility] Cardiac Diagnostic Lab [address] [facility] [address] [place] [address] Antisynthetase syndrome; ILD (interstitial lung disease) (HCC); High risk medication use; Pericardial effusion Discharge Disposition: Discharge to home or self care 08/10/2025 Telephone [facility] Medicine Pulmonary [address] [place] [address] [place] [address] Liliane Noonan, RN 07/31/2025 Telephone [facility] Medicine Pulmonary [address] [place] [address] [place] [address] Liliane Noonan, RN 07/30/2025 Telephone [facility] Pulmonary [address] [place] [address] [place] [address] Janet Morris CMA 07/28/2025 Telephone [facility] Pulmonary [address] [place] [address] [place] [address] Liliane Noonan, RN 07/24/2025 8:45 AM CDT Office Visit [facility] Medicine Pulmonary [address] [place] [address] [place] [address] Jesus Romero MD Antisynthetase syndrome (Primary Dx); ILD (interstitial lung disease) (HCC); High risk medication use; Pericardial effusion 07/24/2025 7:47 AM CDT - 07/24/2025 11:59 PM CDT Hospital Encounter [facility] Medicine Pulmonary [address] [place] [id number] Interstitial lung disease (HCC) Discharge Disposition: Discharge to home or self care from Last 3 Months Immunizations Immunization Administration Dates Next Due Influenza, Quadrivalent, Iliana l Culture-based MDCK, Preservative Free, Antibiotic Free, Intramuscular 09/22/2021,07/23/2019 Influenza, Quadrivalent, Spl it, Preservative Free, Intramuscular 06/14/2022,07/23/2020 Influenza, Trivalent, Cell C ulture-based MDCK, Preservative Free, Antibiotic Free, Intramuscular 07/15/2024 PPD TEST 12/28/2009 Pneumococcal Conjugate PCV 13 05/19/2020 Pneumococcal Polysaccharide PPV23 12/07/2020 Tdap 01/14/2015 ZOSTER Recombinant 07/15/2024,12/31/2023 Surgical History Surgery Date Site/Laterality Comments COLONOSCOPY [...] Hyperlipidemia Depression rheumatoid arthritis Breast cancer (HCC) High risk medication use 01/18/2016 Shoulder pain, right 05/31/[address] 03/30/2022 Subacute cough 11/09/2022 Foot pain, right 05/16/2023 Family History Medical History Relation Name Comments [...] on file Legal Sex Female 7:40 PM RIVET SPINNER Gender Identity Female 02/20/2020 12:23 AM CDT Sexual Orientation Straight 07/08/2024 2: 34 PM CDT Obstetrics History Para Term AB IAB SAB Ectopic Multiple Livin g Live Births 3 2 Date Outcome GA Total Labor Labor/2nd/3rd Weight Sex Type Anes PTL Kimberley A1 A5 Name Clin Para Para Last Filed Vital Signs Vital Sign Reading Time Taken Comments Blood Pressure 97/67 07/24/2025 8:20 AM CDT Pulse 76 07/24/2025 8:20 AM CDT Temperature 36.3 C (97.4 F) 07/24/2025 8:20 AM CDT Respiratory Rate 18 07/24/2025 8:20 AM CDT Oxygen Saturation 96% 07/24/2025 8:20 AM CDT Inhaled Oxygen Concentration - - Weight 86.2 kg (190 lb) 07/24/2025 8:20 AM CDT Height 172.7 cm (5' 8) 07/24/2025 8:20 AM CDT Body Mass Index 28.89 07/24/2025 8:20 AM CDT Plan of Treatment Health Maintenance Due Date Last Done Comments Cervical Cancer Screening 1960 Colon Cancer Screening-Colonoscopy 1960 Depression Screening 1960 Hepatitis C Screening 1960 Hepatitis B Screening 1978 Regular Well Visit/Exam 18-64 1978 DTaP/Tdap/Td Vaccine (2 - Td or Tdap) 01/14/2025 01/14/2015 Covid-19 Vaccine (5 - 2024-2 6 season) 2025 05/09/2022, 08/26/2021, 11/20/2020, Additional history exists Influenza Vaccine (#1) 2025 , 06/14/2022, 09/22/2021, Additional history exists Pneumococcal vaccine <65 (3 of 3 - PCV20 or PCV21) 12/07/2025 12/07/2020, 05/19/2020 Breast Cancer Screening-Mammogram 01/20/2026 025 Zoster Vaccine Completed 07/15/2024, 12/31/2023 Medical Devices Implanted Type Area Ship Mate Device Identifier Shelf Expiration Date Model / Serial / Lot [employer] Marker Tissue Needle Delivery Spiral Capped Seed Radiopaque Half-Way Stainless Steel Low Nickel [employer] [id number] - [id number] Implanted:Qty: 1 on 05/23/2024 by Dot Santamaria MD at [facility] Left: Breast [employer] [id number] 06/07/2027 [id number] / / [id number] Procedures Procedure Name Priority Date/Time Associated Diagnosis Comments TRANSTHORACIC ECHO (TTE) LIMITED/FOLLOW UP W LTD DOPPLER/CF WO CONTRAST Routine 08/10/2025 7:34 AM RIVET SPINNER Antisynthetase syndrome ILD (interstitial lung disease) (HCC) High risk medication use Pericardial effusion PULMONARY FUNCTION TEST (PFT) Routine 07/24/2025 8:15 AM CDT Interstitial lung disease (HCC) DIAGNOSTIC MAMMOGRAM BILATERAL W JAE Schedule Routine, Read Routine (OP Routine) 01/20/2025 11:30 AM CDT Malignant neoplasm of upper-outer quadrant of left breast in female, estrogen receptor positive (HCC) from Last 3 Months or Most Recently Relevant to Health Maintenance Results * TRANSTHORACIC ECHO (TTE) LIMITED/FOLLOW UP W LTD DOPPLER/CF WO CONTRAST (08/10/2025 7:34 AM RIVET SPINNER) Estimated EF 60 % CONS SCIMAGE Anatomical Region Laterality Modality Ultrasound 08/10/2025 7:02 AM RIVET SPINNER Narrative 08/10/2025 8:04 AM RIVET SPINNER [facility] [place] [address] [place] [address] Transthoracic Echocardiographic Report Patient Name: KEREN CALVIN F : 1960 (64y 10m) Sex: F Study Date: 08/10/2025 07:02:42 AM Ht(Inch): 68 Wt(Lb): 190.04 BSA: 2 Bullet Slugs Inspector[facility] Location: [facility] Order Provider: JESUS ROMERO Heart Rate: 68 BMI: 28.89 BP: 101 / 66 Ref Provider: JESUS ROMERO PROCEDURES: Echocardiographic Report: Limited transthoracic 2D echo, includes spectral and tissue Doppler, color flow Doppler, and/or M-mode, when performed. INDICATIONS: Pericardial effusion. CONCLUSIONS: 1. The Ejection Fraction is visually estimated to be 60 %. Normal diastolic function. 2. Normal right ventricular size. Normal function, visually. 3. The estimated pulmonary artery systolic pressure is 20.0 mmHg. No pulm HTN. ATTESTATION: I have personally reviewed and interpreted this study without fellow or resident. DISCLAIMER: The study images and the final report will be retained in the patient chart by the Echo Laboratory for the legally required time period. This chart constitutes the legal record of any testing performed. FINDINGS: Left Ventricle: Normal left ventricular cavity size based on 2D measurements. The Ejection Fraction is visually estimated to be 60 %. Normal diastolic function. Right Ventricle: Normal right ventricular size. Normal function, visually. Left Atrium: The left atrium is normal in size. Right Atrium: The right atrium is normal in size. Mitral Valve: Normal mitral valve structure. No mitral regurgitation. Aortic Valve: Normal trileaflet aortic valve. No aortic regurgitation. Tricuspid Valve: Normal tricuspid valve structure. Mild tricuspid regurgitation. The estimated pulmonary artery systolic pressure is 20.0 mmHg. No pulm HTN. Pulmonic Valve: The pulmonic valve is not well visualized due to poor acoustic windows. Pericardium: Normal pericardium without pericardial effusion. Aorta: Normal aortic root. IVC: IVC is normal in size. MEASUREMENTS: 2D/MM Value Range Visually Estimated EF 60 % IVC Diam 1.6 cm IVC Collapse 77.0 % Electronically Signed By: Boston Cerda M.D. 08/10/2025 8:04:03 AM RIVET SPINNER Procedure Note Boston Cerda MD PhD - 08/10/2025 [facility] [place] [address] Transthoracic Echocardiographic Report Patient Name: KEREN CALVIN F : 1960 (64y 10m) Sex: F Study Date: 08/10/2025 07:02:42 AM Ht(Inch): 68 Wt(Lb): 190.04 BSA: 2 Bullet Slugs Inspector: LY Acosta,[facility] Location: [facility] Order Provider:JESUS ROMERO Heart Rate: 68 BMI: 28.89 BP: 101 / 66 Ref Provider: JESUS ROMERO PROCEDURES: Echocardiographic Report: Limited transthoracic 2D echo, includes spectraland tissue Doppler, color flow Doppler, and/or M-mode, when performed. INDICATIONS: Pericardial effusion. CONCLUSIONS: 1. The Ejection Fraction is visually estimated to be 60 %. Normaldiastolic function. 2. Normal right ventricular size. Normal function, visually. 3. The estimated pulmonary artery systolic pressure is 20.0 mmHg. No pulmHTN. ATTESTATION: I have personally reviewed and interpreted this study without fellow orresident. DISCLAIMER: The study images and the final report will be retained in the patientchart by the Echo Laboratory for the legally required time period. This chart constitutesthe legal record of any testing performed. FINDINGS: Left Ventricle: Normal left ventricular cavity size based on 2Dmeasurements. The Ejection Fraction is visually estimated to be 60 %. Normal diastolicfunction. Right Ventricle: Normal right ventricular size. Normal function,visually. Left Atrium: The left atrium is normal in size. Right Atrium: The right atrium is normal in size. Mitral Valve: Normal mitral valve structure. No mitral regurgitation. Aortic Valve: Normal trileaflet aortic valve. No aortic regurgitation. Tricuspid Valve: Normal tricuspid valve structure. Mild tricuspidregurgitation. The estimated pulmonary artery systolic pressure is 20.0 mmHg. No pulm HTN. Pulmonic Valve: The pulmonic valve is not well visualized due to pooracoustic windows. Pericardium: Normal pericardium without pericardial effusion. Aorta: Normal aortic root. IVC: IVC is normal in size. MEASUREMENTS: 2D/MM Value Range Visually Estimated EF 60 % IVC Diam 1.6 cm IVC Collapse 77.0 % Electronically Signed By: Boston Cerda M.D. 08/10/2025 8:04:03 AM RIVET SPINNER Jesus Romero MD CV ECHO PROCEDURES Final Resul t * Pulmonary Function Test - (07/24/2025 8:15 AM CDT) FVC PRE 2.41 L [facility] FVC %PRE PRED 70 % [facility] FEV1 PRE 2.05 L [facility] FEV1 %PRE PRED 77 % [facility] FEV1/FVC PRE 85.2 % [facility] Anatomical Region Laterality Modality PFT 07/24/2025 7:54 AM CDT Narrative 07/24/2025 4:35 PM CDT Table formatting from the original result was not included. [facility] Division of Pulmonary & Critical Care Medicine [address] [place] [address]; [place] [address] [facility]; [place] [address]; [phone] Pulmonary Function Laboratory Pulmonary Stress Test Simple/Oxygen Assessment Patient: Keren Calvin Date: 07/24/2025 : 1960 Ht: 68.5 inches Wt: 190 lbs Time (min) Distance (ft)/ Hemphill O2 L/M SpO2 HR Henrry* BP FEV1 % Pred Rest: RA 99 72 0 115/66 2.05 77 % Walk/Bike: 1 RA 98 92 0 2 RA 97 100 0 3 RA 97 96 0 4 RA 96 98 0 5 RA 97 98 0 6 min 0 sec RA 96 98 0 Recovery: 1 RA 100 83 0 122/73 2.19 82% 3 RA 100 80 0 *Henrry rate of perceived exertion (1-10 dyspnea scale) Jean Pierre, CHEST 2003; [id number] Walk Test Summary: Six Minute Walk Distance: 1260 ft Six-minute Walk Work [distance (m) x body wt (kg)]: 33,037 kg.m (normal >60,000kg.m) Oxygen required to maintain SpO2 greater than 90% during six minutes of walking: L/M Comments: Interpretation: Breathing room air, SpO2 is normal at rest and during exercise sufficient to increase pulse, SpO2 is stable. On this basis, SpO2 is adequate at rest breathing room air and while walking breathing room air. This level of exercise is associated with no significant change of FEV1. By signing this report, the attending pulmonary physician certifies that he/she has personally reviewed and interpreted the graphic and numerical data associated with this pulmonary function study and has reviewed and /or edited a preliminary draft report and agrees with the written final report. PFT performed at:->[facility] Adult PFT Lab- [id number] Procedure:->Spirometry Procedure:->Oxygen Assessment Titration Pulmonary Function Test Interpretation SPIROMETRY: The FEV1 to FVC ratio is normal. The FEV1 and FVC are reduced in a pattern suggestive of a restrictive abnormality. The inspiratory loop is normal. PULSE OXIMETRY: See Oxygen Assessment/Cardiopulmonary Exercise Study-Simple Impression: There is a mild restrictive ventilatory defect. However, measurement of lung volumes is suggested to confirm this if clinically indicated. Compared with most recent study, there has been no significant interval change. The attending pulmonary physician certifies a physician presence in the [facility] Suite during the administration of aerosolized bronchodilator. The attending pulmonary physician certifies that he/she has reviewed and interpreted the graphic and numerical data of this pulmonary function study and agrees with the written final report. The lower limit of normal for PaO2 and %HbO2 is age dependent. However, the [facility] Pulmonary Function Laboratory defines hypoxemia as a PaO2 <56 mm Hg or a %HbO2 <89%. Starting on October of [address] [facility] Pulmonary Function Laboratory utilizes race neutral GLI Global normative equations. Vanessa Carrington NP PFT ORDERABLES Final Result * Diagnostic Mammogram Bilateral W Jae (01/20/2025 [...] and agrees with it. Electronically signed by: MD Leeanna Houston 01/20/2025 12:13 PM CDT EXAMINATION: BILATERAL DIGITAL [...] Fi nal Result from Last 3 Months or Most Recently Relevant to Health Maintenance [place] [employer] [place] [employer] [place] Advance Directives For more information, please contact: [phone] Documents on File Type Date Recorded Patient President Sales And Marketing Expl anation Advance Directives and Hu g Will 05/29/2024 7:19 AM Care Teams Filter Tank Tender Helper Relationship Specialty Start Date End Date Rajesh Connolly MD [address] [place] [address] PCP - General Internal Medicine 08/13/23 Rajesh Connolly MD Referring Physician Internal Medicine 02/21/19 Nikki Cuellar MD [address] [place] [address] Radiation Oncologist Radiation Oncology 06/26/24 Ling Goldsmith MD [address] [place] [address] Surgeon Surgical Oncology 06/26/24 Felipe Simeon MD [address] [place] [address] Consulting Physician Medical Oncology 06/26/24 Jesus Romero MD [address] [place] [address] Consulting Physician Pulmonary Disease 03/27/25 Vanessa Carrington NP [address] [place] [address] Nurse Practitioner Pulmonary Disease 03/27/25
--- OUTSIDE RECORDS SUMMARY | 2025-09-07 13:29 | XMS_ITS | Encounter Summary ---
Author Organization [facility] Address [address] [place] [address] Phone Care Team Providers Care Financial Analysis Consultant Name Role Phone Nakita Falk MD Primary Care Provider [phone] Rajesh Connolly MD Unavailable [phone] Rajesh Connolly MD Primary Care Provider [phone] Nikki Cuellar MD Unavailable Ling Goldsmith MD Unavailable [phone] Felipe Simeon MD Unavailable Jesus Vaughn MD Unavailable [phone] Vanessa Carrington NP Unavailable [phone] Encounter Details Date Type Department Care Team (Late st Contact Info) Description 03/21/2022 Orders Only [facility] RHEUMATOLOGY Scanning, Provider Social History Tobacco Use Types Packs/Day Years Used Date Smoking Tobacco: Never Smokeless Tobacco: Never Comments:in college Alcohol Use Standard Drinks/Week Comments Yes 1 (1 standard drink = 0.6 oz pur e alcohol) Comments No Sex and Gender Information Value Date Recorded Sex Assigned at Not on file Legal Sex Female 7:40 PM ROUNDHOUSE FIRER/FIREMAN Gender Identity Female 02/20/2020 12:23 AM CDT [...] COVID: Suspected 09/13/2023 09/14/2023 09/14/2023 3:05 AM ROUNDHOUSE FIRER/FIREMAN COVID: Suspected 09/14/2023 09/14/2023 09/14/2023 4:33 PM ROUNDHOUSE FIRER/FIREMAN COVID19 09/14/2023 09/14/2023 09/24/2023 3:05 AM ROUNDHOUSE FIRER/FIREMAN COVID: Recovered Comment:Added based on recent COVID infection. 09/24/2023 10/23/2023 12/23/2023 3:06 AM C DT documented as of this encounter Care Teams Financial Analysis Consultant Relationship Specialty Start Date End Date Nakita Falk MD [address] [place] [address] PCP - General 02/19/18 08/12/23 Rajesh Connolly MD [address] [place] [address] PCP - General Internal Medicine 08/13/23 Rajesh Connolly MD [address] [place] [address] Referring Physician Internal Medicine 02/21/19 Nikki Cuellar MD [address] [place] [address] Radiation Oncologist Radiation Oncology 06/26/24 Ling Goldsmith MD [address] [place] [address] Surgeon Surgical Oncology 06/26/24 Fa'Felipe alcocer MD [address] [place] [address] Consulting Physician Medical Oncology 06/26/24 Jesus Vaughn MD [address] 8 DIV IM PULMONARY [place] [address] Consulting Physician Pulmonary Disease 03/27/25 Vanessa Carrington NP [address] [place] [address] Nurse Practitioner Pulmonary Disease 03/27/25 documented as of this encounter
--- OUTSIDE RECORDS SUMMARY | 2025-09-07 13:29 | XMS_ITS | Clinical Summary ---
Author Organization [facility] Address [address] [place] [address] Care Team Providers Care Lock Maintenance Supervisor Name Role Phone Unavailable Primary Care Provider Unavailabl e Social History Tobacco Use Types Packs/Day Years Used Date Smoking Tobacco: Never Assessed Comments Unknown Sex and Gender Information Value Date Recorded Sex Assigned at Not on file Legal Sex Female 11:21 PM COBOL APPLICATION DEVELOPER Gender Identity Not on file Sexual Orientation [...] of 2) 2010 COVID-19 Vaccine ( - 2024-2 6 season) 2025 Influenza Adult (#1) 2025 RSV Immunization or 60+ Years (1 - 1-dose 75+ series) 2035 Hepatitis A Vaccines Aged Out No long er eligible based on patient's age to complete this topic Meningococcal B Vaccine Aged Out No l onger eligible based on patient's age to complete this topic Meningococcal Vaccine Aged Out No franklin ronaldo eligible based on patient's age to complete this topic RSV Immunizations Under 20 Months Aged Out No longer eligible based on patient's age to complete this topic
--- OUTSIDE RECORDS SUMMARY | 2025-09-07 13:29 | XMS_ITS | Clinical Summary ---
Author Organization [facility] [facility] Address [address] [place] [address] Care Team Providers Care Shirring Machine Operator Automatic Name Role Phone Rajesh Connolly MD Primary [...] by mouth daily. 3 Active rizatriptan (MAXALT RIB BENDER) 10 mg Tablet, Rapid Dissolve PLACE 1 [...] 4 Active fluticasone propionate (FLONASE) 50 mcg/spray [place], Suspension nasal inhaler SPRAY 1-2 SPRAYS INTO [...] Encounters Date Type Department Care Team Description 08/25/2025 External Device Data STL ABSTRACTION Provider, Abstract 07/29/2025 External Device Data STL ABSTRACTION Provider, Abstract 07/28/2025 External Device Data STL ABSTRACTION Provider, Abstract 06/23/2025 External Device Data STL ABSTRACTION Provider, Abstract [...] on file Legal Sex Female 11:56 AM PROJECT DEVELOPMENT MANAGER Gender Identity Not on file Sexual Orientation [...] Description 01/04/2026 11:00 AM CDT Office Visit [facility] OBGYN [address] [place] [address] [place] [address] [place] [address] Health Maintenance Due Date Last Done Comments Pre-Diabetes and Diabetes Screening 1960 ZOSTER VACCINE (1 of 2) 1979 COLORECTAL SCREENING 2005 Colorectal Cancer Screening 2005 FIT-DNA Q 3 years 2005 FIT/FOBT Q 1 year 2005 Flex Sig/CT Colonography Q 5 years 2005 RSV VACCINE (60+ or ) (1 - Risk 50-74 years 1-dose series) 2010 DTAP/TDAP/TD VACCINES (2 - T d or Tdap) 01/14/2025 01/14/2015 BREAST CANCER SCREENING 04/30/2025 04/30/20, 04/30/2024, 04/28/2024 INFLUENZA VACCINE (#1) 2025 , 07/23/2020, 07/23/2019 PAP SMEAR 12/25/2026 12/26/2023 CERVICAL CANCER SCREENING [...] PAP (12/26/2023 2:37 PM CDT) COMMENT (PAP): [facility] [place] Comment: This order for age-based cervical cancer and STI screening follows ACOG guidelines(PB 168, 140, DPU653). See individual assays for performing site location. CLINICAL INFORMATION [facility] [place] Comment:None given LAST MENSTRUAL PERIOD [facility] [place] Comment:NONE GIVEN PREV PAP: [facility] [place] Comment:NONE GIVEN PREV BX: [facility] [place] Comment:NONE GIVEN SOURCE [facility] [place] Comment:Endocervix ADEQUACY: [facility] [place] Comment:SATISFACTORY FOR VIKTOR LUATION PAP INTERP [facility] [place] Comment: Cytology Results: Negative for intraepithelial lesion or malignancy. Atrophic pattern; predominantly parabasal cells COMMENT (PAP TEST) [facility] [place] Comment: This Pap test has been evaluated with computer assisted technology. CANDLE MAKING SUPERVISOR: [facility] [place] Comment: BES, CT(ASCP) CT screening location: [place] [address] [place] [address] EXPLANATORY NOTE [facility] Comment: EXPLANATORY NOTE: The Pap is [...] information. HPV E6/E7 Not Detected Not Detected [facility] [place] Comment: Methodology: Mental Hygiene Consultant-Mediated Amplification This assay detects E6/E7 viral messenger RNA (mRNA) from 14 high-risk HPV types (16,18,31,33,35,39,45,51,52,56,58,59,66,68). Cervical sources are required for HPV testing. If a vaginal source from a patient who has had a total hysterectomy with removal of cervix was submitted, please contact the testing laboratory for alternative testing options. For additional information, please refer to http://education.[address]/faq/RPX434x1 (This link if provided for information/ educational purposes only.) Test Performed at: [facility] [address] [facility] [place] [address] Crystal MARTINEZ Genital SWAB OF ENDOCERVIX / Unknown 12/26/2023 2:37 PM CDT 12/27/2023 1:49 AM CDT Porsche Garrison MD PATHOLOGY/CYTOLOGY ORDERABLES F inal Result [facility] [phone] [facility] [address] [facility] [place] [address] from Last 3 Months or Most Recently Relevant to Health Maintenance Insurance [facility] [employer] Care Teams Shirring Machine Operator Automatic Relationship Specialty Start Date End Date aRjesh Connolly MD [address] [place] [phone] (work) PCP - General Internal Medicine 11/28/23
--- OUTSIDE RECORDS SUMMARY | 2025-09-07 13:29 | XMS_ITS | Encounter Summary ---
Author Organization [facility] Address [address] [place] [address] Phone Care Team Providers Care Assurance Assistant Name Role Phone Rajesh Connolly MD Unavailable [phone] Rajesh Connolly MD Primary Care Provider Nikki Cuellar MD Unavailable Ling Goldsmith MD Unavailable [phone] Felipe fuller MD Unavailable Jesus Vaughn MD Unavailable [phone] Vanessa Carrington NP Unavailable [phone] Encounter Details Date Type Department Care [...] on file Legal Sex Female 7:40 PM NETBACKUP ENGINEER Gender Identity Female 02/20/2020 12:23 AM CDT [...] documented as of this encounter Care Teams Assurance Assistant Relationship Specialty Start Date End Date Rajesh Connolly MD [address] [place] [address] PCP - General Internal Medicine 08/13/23 Rajesh Connolly MD Referring Physician Internal Medicine 02/21/19 Nikki Cuellar MD [address] [facility] [address] [place] [address] Radiation Oncologist Radiation Oncology 06/26/24 Ling Goldsmith MD [address] [place] [address] Surgeon Surgical Oncology 06/26/24 Felipe Simeon MD [address] [place] [address] Consulting Physician Medical Oncology 06/26/24 Jesus Vaughn MD [address] [facility] 8 DIV IM [place] [address] Consulting Physician Pulmonary Disease 03/27/25 Vanessa Carrington NP [address] [place] [address] Nurse Practitioner Pulmonary Disease 03/27/25 documented as of this encounter
--- OUTSIDE RECORDS SUMMARY | 2025-09-07 13:29 | XMS_ITS | Encounter Summary ---
Author Organization [facility] Address [address] [place] [address] Care Team Providers Care Counter Top Assembler Name Role Phone Rajesh Connolly MD Unavailable [phone] Rajesh Connolly MD Primary Care Provider [phone] Nikki Cuellar MD Unavailable Ling Goldsmith MD Unavailable Felipe Simeon MD Unavailable Jesus Vaughn MD Unavailable [phone] Vanessa Carrington NP Unavailable [phone] Encounter Details Date Type Department Care Team (Late st Contact Info) Description 08/18/2024 Telephone [facility] Radiation Oncology [address] [facility] Advanced Medicine [facility] [place] [address] Nikki Cuellar MD [address] [facility] [address] [place] [address] Social History Tobacco Use Types Packs/Day [...] on file Legal Sex Female 7:40 PM PAPER CORE MACHINE OPERATOR Gender Identity Female 02/20/2020 12:23 AM CDT Sexual Orientation Straight 07/08/2024 2: 34 PM CDT documented as of this encounter Plan of Treatment Not on file documented as of this encounter Visit Diagnoses Not on filedocumented in this encounter Care Teams Counter Top Assembler Relationship Specialty Start Date End Date Rajesh Connolly MD [address] [place] [address] PCP - General Internal Medicine 08/13/23 Rajesh Connolly MD Referring Physician Internal Medicine 02/21/19 Nikki Cuellar MD [address] [facility] [address] [place] [address] Radiation Oncologist Radiation Oncology 06/26/24 Ling Goldsmith MD [address] [place] [address] Surgeon Surgical Oncology 06/26/24 Felipe Simeon MD [address] [place] [address] Consulting Physician Medical Oncology 06/26/24 Jesus Vaughn MD [address] [facility] 8 DIV IM PULMONARY [place] [address] Consulting Physician Pulmonary Disease 03/27/25 Vanessa Carrington NP [address] [place] [address] Nurse Practitioner Pulmonary Disease 03/27/25 documented as of this encounter
--- OUTSIDE RECORDS SUMMARY | 2025-09-07 13:29 | XMS_ITS | Encounter Summary ---
Author Organization [facility] Address [address] [place] [address] Phone Care Team Providers Care Silviculture Teacher Name Role Phone Nakita Falk MD Primary Care Provider [phone] Rajesh Connolly MD Unavailable [phone] Rajesh Connolly MD Primary Care Provider [phone] Nikki Cuellar MD Unavailable Ling Goldsmith MD Unavailable [phone] Felipe Simeon MD Unavailable Jesus Vaughn MD Unavailable [phone] Vanessa Carrington NP Unavailable [phone] Encounter Details Date Type Department Care Team (Late st Contact Info) Description 05/16/2021 Orders Only [facility] RHEUMATOLOGY Scanning, Provider Social History Tobacco Use Types Packs/Day Years Used Date Smoking Tobacco: Never Smokeless Tobacco: Never Comments:in college Alcohol Use Standard Drinks/Week Comments Yes 1 (1 standard drink = 0.6 oz pur e alcohol) Comments No Sex and Gender Information Value Date Recorded Sex Assigned at Not on file Legal Sex Female 7:40 PM MEMBERSHIP ADMINISTRATOR Gender Identity Female 02/20/2020 12:23 AM CDT [...] COVID: Suspected 09/13/2023 09/14/2023 09/14/2023 3:05 AM MEMBERSHIP ADMINISTRATOR COVID: Suspected 09/14/2023 09/14/2023 09/14/2023 4:33 PM MEMBERSHIP ADMINISTRATOR COVID19 09/14/2023 09/14/2023 09/24/2023 3:05 AM MEMBERSHIP ADMINISTRATOR COVID: Recovered Comment:Added based on recent COVID infection. 09/24/2023 10/23/2023 12/23/2023 3:06 AM C DT documented as of this encounter Care Teams Silviculture Teacher Relationship Specialty Start Date End Date Nakita Falk MD [address] [facility] [address] [place] [address] PCP - General 02/19/18 08/12/23 Rajesh Connolly MD [address] [place], [place] [address] PCP - General Internal Medicine 08/13/23 Rajesh Connolly MD [address] [facility] [address] [place] [address] Referring Physician Internal Medicine 02/21/19 Nikki Cuellar MD [address] [place] [address] Radiation Oncologist Radiation Oncology 06/26/24 Ling Goldsmith MD [address] [place] [address] Surgeon Surgical Oncology 06/26/24 Felipe Simeon MD [address] [place] [address] Consulting Physician Medical Oncology 06/26/24 Jesus Vaughn MD [address] DIV IM PULMONARY [place] [address] Consulting Physician Pulmonary Disease 03/27/25 Vanessa Carrington NP [address] [place] [address] Nurse Practitioner Pulmonary Disease 03/27/25 documented as of this encounter
--- OUTSIDE RECORDS SUMMARY | 2025-09-07 13:29 | XMS_ITS | Encounter Summary ---
Author Organization [facility] Address [address] [place] [address] Phone Care Team Providers Care Director Of Rooms Name Role Phone Nakita Falk MD Primary Care Provider [phone] Rajesh Connolly MD Unavailable [phone] Rajesh Connolly MD Primary Care Provider [phone] Nikki Cuellar MD Unavailable Ling Goldsmith MD Unavailable [phone] Felipe Simeon MD Unavailable Jesus Vaughn MD Unavailable [phone] Vanessa Carrington NP Unavailable [phone] Encounter Details Date Type Department Care [...] on file Legal Sex Female 7:40 PM CAGE SUPERVISOR Gender Identity Female 02/20/2020 12:23 AM [...] COVID: Suspected 09/13/2023 09/14/2023 09/14/2023 3:05 AM CAGE SUPERVISOR COVID: Suspected 09/14/2023 09/14/2023 09/14/2023 4:33 PM CAGE SUPERVISOR COVID19 09/14/2023 09/14/2023 09/24/2023 3:05 AM CAGE SUPERVISOR COVID: Recovered Comment:Added based on recent COVID infection. 09/24/2023 10/23/2023 12/23/2023 3:06 AM C DT documented as of this encounter Care Teams Director Of Rooms Relationship Specialty Start Date End Date Nakita Falk MD [address] [facility] [address] [place] [address] PCP - General 02/19/18 08/12/23 Rajesh Connolly MD [address] [place] [address] PCP - General Internal Medicine 08/13/23 Rajesh Connolly MD [address] [place] [address] Referring Physician Internal Medicine 02/21/19 Nikki Cuellar MD [address] [facility] [address] [place] [address] Radiation Oncologist Radiation Oncology 06/26/24 Ling Goldsmith MD [address] [place] [address] Surgeon Surgical Oncology 06/26/24 FaFelipe fuller MD [address] [place] [address] Consulting Physician Medical Oncology 06/26/24 Jesus Vaughn MD [address] [facility] [place] 8 DIV [place] [address] Consulting Physician Pulmonary Disease 03/27/25 Vanessa Carrington NP [address] [place] [address] Nurse Practitioner Pulmonary Disease 03/27/25 documented as of this encounter
--- OUTSIDE RECORDS SUMMARY | 2025-09-07 13:29 | XMS_ITS | Encounter Summary ---
Author Organization [facility] Address [address] [place] [address] Phone Care Team Providers Care Musical Therapist Name Role Phone Nakita Falk MD Primary Care Provider [phone] Rajesh Connolly MD Unavailable [phone] Rajesh Connolly MD Primary Care Provider [phone] Nikki Cuellar MD Unavailable Ling Goldsmith MD Unavailable [phone] Felipe Simeon MD Unavailable Jesus Vaughn MD Unavailable [phone] Vanessa Carrington NP Unavailable [phone] Encounter Details Date Type Department Care [...] on file Legal Sex Female 7:40 PM WIND FIELD MANAGER Gender Identity Female 02/20/2020 12:23 AM [...] COVID: Suspected 09/13/2023 09/14/2023 09/14/2023 3:05 AM WIND FIELD MANAGER COVID: Suspected 09/14/2023 09/14/2023 09/14/2023 4:33 PM WIND FIELD MANAGER COVID19 09/14/2023 09/14/2023 09/24/2023 3:05 AM WIND FIELD MANAGER COVID: Recovered Comment:Added based on recent COVID infection. 09/24/2023 10/23/2023 12/23/2023 3:06 AM C DT documented as of this encounter Care Teams Musical Therapist Relationship Specialty Start Date End Date Nakita Falk MD [address] [facility] [address] [place] [address] PCP - General 02/19/18 08/12/23 Rajesh Connolly MD [address] [place] [address] PCP - General Internal Medicine 08/13/23 Rajesh Connolly MD [address] [place] [address] Referring Physician Internal Medicine 02/21/19 Nikki Cuellar MD [address] [facility] [address] [place] [address] Radiation Oncologist Radiation Oncology 06/26/24 Ling Goldsmith MD [address] [place] [address] Surgeon Surgical Oncology 06/26/24 Felipe Simeon MD [address] [place] [address] Consulting Physician Medical Oncology 06/26/24 Jesus Vaughn MD [address] [facility] [place] [address] DIV IM [place] [address] Consulting Physician Pulmonary Disease 03/27/25 Vanessa Carrington NP [address] [place] [address] Nurse Practitioner Pulmonary Disease 03/27/25 documented as of this encounter
--- OUTSIDE RECORDS SUMMARY | 2025-09-07 13:29 | XMS_ITS ---
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 Assessment & Plan (11/09/2022 1:02 PM LINEN MANAGER): Isabella 1 positive anti synthetase syndrome currently [...] 09/16/2020 Assessment & Plan (09/16/2020 12:34 PM LINEN MANAGER): This is a new problem for her. At this time, I recommend simply extension exercises but I have discussed with her percutaneous fasciotomy through Dr. Rosas should this be progressive. We discussed the genetic nature of this. Carpal tunnel syndrome, bilateral 10/22/2019 Overview (10/22/2019): Added automatically from request for surgery [id number] Hypertension 02/14/2018 Assessment & Plan (05/23/2018 3:02 [...] available. Assessment & Plan (11/09/2022 1:01 PM LINEN MANAGER): No articular symptoms at this time and [...] months. Assessment & Plan (09/16/2020 12:34 PM LINEN MANAGER): Well controlled synovitis today. The Dupuytren's contracture is relatively rapidly progressing as was not apparent at last uysq-qz-czea visit which was almost a year ago. [...] indicated. Assessment & Plan (10/16/2019 12:03 PM LINEN MANAGER): Longstanding seronegative rheumatoid arthritis presents today with [...] She had a recent visit with her icu specialist that I believe feels she has a [...] methotrexate. Assessment & Plan (10/28/2018 10:26 AM LINEN MANAGER): 58-year-old white female with seronegative rheumatoid arthritis [...] Medications Current Day (Day 1 , Cycle 2 - Planned for 10/22/2025) Next Day (Day 1, Cycle 3 - Planned for 04/22/2026) No medications scheduled. No medications schedul ed. [...] DLP 1,783 mGycm 1,783 mGycm 0 mGycm Resolved Problems Problem Noted Date Diagnosed Date Resolved Date Foot pain, right 05/16/2023 03/27/2025 Subacute cough 11/09/2022 03/27/2025 Assessment & Plan (11/09/2022 1:03 PM LINEN MANAGER): This may represent a postinfectious cough but [...] CT 03/30/2022 03/27/2025 Shoulder pain, right 05/31/2019 025 Assessment & Plan (05/31/2019 5:43 AM CDT): Status post intra-articular injection today; if no improvement, I recommend radiographs and assessment of the rotator cuff. High risk medication use 01/18/2016
--- OUTSIDE RECORDS SUMMARY | 2025-09-07 13:29 | XMS_ITS | Encounter Summary ---
Author Organization [facility] Address [address] [place] [address] Phone Care Team Providers Care Dry Room Attendant Name Role Phone Nakita Falk MD Primary Care Provider [phone] Rajesh Connolly MD Unavailable [phone] Rajesh Connolly MD Primary Care Provider [phone] Nikki Cuellar MD Unavailable Ling Goldsmith MD Unavailable [phone] Felipe Simeon MD Unavailable Jesus Vaughn MD Unavailable [phone] Vanessa Carrington NP Unavailable [phone] Encounter Details Date Type Department Care Team (Late st Contact Info) Description 03/01/2022 Orders Only [facility] Scanning, Provider Social History Tobacco Use Types Packs/Day Years Used Date Smoking Tobacco: Never Smokeless Tobacco: Never Comments:in college Alcohol Use Standard Drinks/Week Comments Yes 1 (1 standard drink = 0.6 oz pur e alcohol) Comments No Sex and Gender Information Value Date Recorded Sex Assigned at Not on file Legal Sex Female 7:40 PM PROFESSOR OF VISUAL ARTS Gender Identity Female 02/20/2020 12:23 AM CDT [...] COVID: Suspected 09/13/2023 09/14/2023 09/14/2023 3:05 AM PROFESSOR OF VISUAL ARTS COVID: Suspected 09/14/2023 09/14/2023 09/14/2023 4:33 PM PROFESSOR OF VISUAL ARTS COVID19 09/14/2023 09/14/2023 09/24/2023 3:05 AM PROFESSOR OF VISUAL ARTS COVID: Recovered Comment:Added based on recent COVID infection. 09/24/2023 10/23/2023 12/23/2023 3:06 AM C DT documented as of this encounter Care Teams Dry Room Attendant Relationship Specialty Start Date End Date Nakita Falk MD [address] [place] [address] PCP - General 02/19/18 08/12/23 Rajesh Connolly MD [address] [place] [address] PCP - General Internal Medicine 08/13/23 Rajesh Connolly MD [address] [place] [address] Referring Physician Internal Medicine 02/21/19 Nikki Cuellar MD [address] [place] [address] Radiation Oncologist Radiation Oncology 06/26/24 Ling Goldsmith MD [address] [place] [address] Surgeon Surgical Oncology 06/26/24 Fa'Felipe alcocer MD [address] [place] [address] Consulting Physician Medical Oncology 06/26/24 Jesus Vaughn MD [address] [place] [address] Consulting Physician Pulmonary Disease 03/27/25 Vanessa Carrington NP [address] [place] [address] Nurse Practitioner Pulmonary Disease 03/27/25 documented as of this encounter
--- OUTSIDE RECORDS SUMMARY | 2025-09-07 13:29 | XMS_ITS | Encounter Summary ---
Author Organization [facility] Address [address] [place] [address] Phone Care Team Providers Care Rollout Manager Name Role Phone Nakita Falk MD Primary Care Provider [phone] Rajesh Connolly MD Unavailable [phone] Rajesh Connolly MD Primary Care Provider [phone] Nikki Cuellar MD Unavailable Ling Goldsmith MD Unavailable [phone] Felipe Simeon MD Unavailable Jesus Vaughn MD Unavailable [phone] Vanessa Carrington NP Unavailable [phone] Encounter Details Date Type Department Care Team (Late st Contact Info) Description 03/08/2022 Orders Only [facility] Scanning, Provider Social History Tobacco Use Types Packs/Day Years Used Date Smoking Tobacco: Never Smokeless Tobacco: Never Comments:in college Alcohol Use Standard Drinks/Week Comments Yes 1 (1 standard drink = 0.6 oz pur e alcohol) Comments No Sex and Gender Information Value Date Recorded Sex Assigned at Not on file Legal Sex Female 7:[address] SCAN TECHNOLOGIST Gender Identity Female 02/20/2020 12:23 AM CDT [...] COVID: Suspected 09/13/2023 09/14/2023 09/14/2023 3:[address] SCAN TECHNOLOGIST COVID: Suspected 09/14/2023 09/14/2023 09/14/2023 4:[address] SCAN TECHNOLOGIST COVID19 09/14/2023 09/14/2023 09/24/2023 3:[address] SCAN TECHNOLOGIST COVID: Recovered Comment:Added based on recent COVID infection. 09/24/2023 10/23/2023 12/23/2023 3:06 AM C DT documented as of this encounter Care Teams Rollout Manager Relationship Specialty Start Date End Date Nakita Falk MD [address] [place] [address] PCP - General 02/19/18 08/12/23 Rajesh Connolly MD [address] [place] [address] PCP - General Internal Medicine 08/13/23 Rajesh Connolly MD [address] [place] [address] Referring Physician Internal Medicine 02/21/19 Nikki Cuellar MD [address] [place] [address] Radiation Oncologist Radiation Oncology 06/26/24 Ling Goldsmith MD [address] [place] [address] Surgeon Surgical Oncology 06/26/24 Fa'Felipe alcocer MD [address] [place] [address] Consulting Physician Medical Oncology 06/26/24 Jesus Vaughn MD [address] [place] [address] Consulting Physician Pulmonary Disease 03/27/25 Vanessa Carrington NP [address] [place] [address] Nurse Practitioner Pulmonary Disease 03/27/25 documented as of this encounter
== END 2025-09-07 12:10 | disposition home or self-care (01) ==
PROVIDERS: PCP Internal Medicine; Visit Provider Nurse Practitioner Family
DX: R10.A1 Flank pain, right side (principal); R31.9 Hematuria, unspecified
CPT/HCPCS: 36415; 74176; 80048; 85027

== ENCOUNTER 2025-09-18 08:19 | Outpatient (CLI) | payer MEDICARE, SELFPAY ==
--- NOTE | ~2025-09-18 | XR_ITS ---
EXAM/PROCEDURE: XR thoracic spine 2V HISTORY: PAIN THORACIC LUMBAR SPINE COMPARISON: December 26, 2015 TECHNIQUE: Thoracic spine x-rays FINDINGS: Mild diffuse degenerative and kyphotic changes throughout the bony thorax appears similar in distribution but slightly worse throughout. In the visualized lung bases there appear to be mild atelectatic and/or infiltrative changes. IMPRESSION: 1. Multilevel degenerative and kyphotic changes throughout the thoracic spine have progressed somewhat since the 2016 exam. 2. Bibasilar changes in the lung sims may represent small infiltrates or pulmonary edema. Correlate with follow-up chest imaging or chest x-ray. Reviewed, dictated and finalized at location A. CTORY OPERATOR IMPRESSION: 1. Multilevel degenerative and kyphotic changes throughout the thoracic spine h ave progressed somewhat since the 2016 exam. 2. Bibasilar changes in the lung sims may represent small infiltrates or pulm onary edema. Correlate with follow-up chest imaging or chest x-ray.
--- NOTE | ~2025-09-18 | XR_ITS ---
EXAM/PROCEDURE: XR lumbar spine 2-3V HISTORY: PAIN THORACIC LUMBAR SPINE COMPARISON: None available. TECHNIQUE: Lumbar spine FINDINGS: Multilevel degenerative changes throughout the lumbar spine with no gross acute or aggressive bony or soft tissue process seen. On bone and soft tissue detail obscured by overlying stool and bowel gas. Mild to moderate degenerative changes throughout the lumbar spine are most advanced in the L4-S1 region including degenerative changes in the posterior elements. IMPRESSION: Multilevel degenerative changes with no obvious acute or aggressive bony or soft tissue process. For persisting back pain refractory to conservative therapy, correlation with MRI may provide additional beneficial information. Reviewed, dictated and finalized at location A. O TELEVISION TECHNICAL DIRECTOR IMPRESSION: Multilevel degenerative changes with no obvious acute or aggressive bony or sof t tissue process. For persisting back pain refractory to conservative therapy, correlation with MRI may provide additional beneficial information.
--- NOTE | ~2025-09-18 | XR_ITS ---
EXAMINATION: XR chest 2V DATE: 09/18/2025 08:41 INDICATION: Pain TECHNIQUE: Frontal and lateral views of the chest were obtained. COMPARISON: March 11, 2025 FINDINGS: Bibasilar changes are stable to slightly worse on today's exam. Mid and upper lung field patchy interstitial changes also are noted which are not significantly changed. No new consolidation effusion or pneumothorax seen. Heart size stable. IMPRESSION: 1. Chronic bibasilar infiltrates and/or interstitial changes consistent with scarring and/or interstitial lung disease. Small superimposed infiltrates are not excluded. Reviewed, dictated and finalized at location A. OR JAVA WEB DEVELOPER IMPRESSION: 1. Chronic bibasilar infiltrates and/or interstitial changes consistent with sc arring and/or interstitial lung disease. Small superimposed infiltrates are not excluded.
== END 2025-09-18 08:20 | disposition home or self-care (01) ==
LOC: CHSIMG 08:21
PROVIDERS: PCP Internal Medicine; Visit Provider Internal Medicine
DX: M54.50 Low back pain, unspecified (principal); R91.8 Other nonspecific abnormal finding of lung field
CPT/HCPCS: 71046; 72070; 72100